=== PATIENT | female | born 1945 | race Caucasian/White ===

== ENCOUNTER 2016-04-22 09:47 | Emergency (ER) | payer MEDICARE, MEDICAID ==
[2016-04-22] MEDS ORDERED: Albuterol/Ipratropium NEB.SOL* Albuterol 2.5 MG/Ipratropium 0.5 MG 3 ML INH ONE (10:42)
[2016-04-22 11:25] LABS: Hematocrit 35 % (35-47); Hemoglobin 11.2 g/dl (12.0-16.0); Mean Corpuscular HGB Conc 32 g/dl (31-36); Mean Corpuscular Hemoglobin 31 pg (27-31); Mean Corpuscular Volume 95 fL (80-97); Mean Platelet Volume 10 um3 (7.4-10.4); Red Blood Count 3.69 10^6/ul (4.0-5.4); Red Cell Distribution Width 14 % (10.5-15); White Blood Count 9.8 10^3/ul (3.5-10.8)
[2016-04-22 11:43] LABS: BUN/Creatinine Ratio 12.1 (8-20); C Reactive Protein 3.88 mg/L (< 5.00); Calcium 9.8 mg/dL (8.6-10.3); EGFR African American 55.2 (>60); EGFR Non-African American 42.9 (>60); Globulin 3.6 g/dL (2-4); Potassium 4.1 mmol/L (3.5-5.0); Total Bilirubin 0.5 mg/dL (0.2-1.0); Total Protein 7.6 g/dL (6.4-8.9)
[2016-04-22 11:46] LABS: Troponin I 0.01 ng/mL (<0.04)
--- NOTE | 2016-04-22 12:39 | RAD ---
HISTORY: Shortness of breath COMPARISONS: November 15, 2015 VIEWS: 2: Frontal dual-energy and lateral views of the chest. FINDINGS: CARDIOMEDIASTINAL SILHOUETTE: The cardiomediastinal silhouette is normal. HARI: The hari are normal. PLEURA: The costophrenic angles are sharp. No pleural abnormalities are noted. LUNG PARENCHYMA: The lungs are clear. ABDOMEN: The upper abdomen is clear. There is no subphrenic gas. BONES AND SOFT TISSUES: No bone or soft tissue abnormalities are noted. OTHER: None. IMPRESSION: NO ACTIVE CARDIOPULMONARY DISEASE.
[2016-04-22] MEDS ORDERED: Azithromycin TAB* 250 MG PO ONE (12:47)
[2016-04-22] MEDS ORDERED: predniSONE TAB* 20 MG PO ONE (12:47)
--- NOTE | 2016-04-22 12:50 | ED ---
Kuldeep Hastings Anna, scribed for Rishabh Retana MD on 04/22/16 at 1021 . Shortness of Breath - HPI Summary HPI Summary: Patient is a 70 y/o female coming to [facility] presenting with acute on chronic SOB that began yesterday. She couldnt sleep because of the severity of the symptoms , which are worse at night. She reports feeling congestion and more difficulty inhaling than exhaling. Her symptoms are somewhat alleviated by sitting up. She normally uses one thick pillow to sleep and sleeps on her side. She additionally expresses some numbness in her feet. She denies coughing, leg edema , chest pain, urinary changes, changes in BM, vision changes, trouble swallowing. She has an inhaler and sleep apnea machine, which do not alleviate the symptoms. She has been taking Mucinex, which has not alleviated the symptoms. Her history is significant for chronic bronchitis, COPD, HTN, DM, GERD , HIV. - History of Current Complaint Chief Complaint: EDShortnessOfBreath Time Seen by Provider: 04/22/16 10:11 Hx Obtained From: Patient - Allergy/Home Medications Allergies/Adverse Reactions: Allergies Allergy/AdvReac Type Severity Reaction Status Date / Time No Known Allergies Allergy Verified 01/18/16 17:03 PMH/Surg Hx/FS Hx/Imm Hx Endocrine/Hematology History: Reports: Hx Diabetes, Other Endocrine/ Hematological Disorders - HIV POSITIVE Denies: Hx Thyroid Disease Cardiovascular History: Reports: Hx Hypercholesterolemia, Hx Hypertension, Other Cardiovascular Problems/Disorders - IDDM Denies: Hx Pacemaker/ICD Respiratory History: Reports: Hx Chronic Bronchitis, Hx Chronic Obstructive Pulmonary Disease (COPD) Denies: Hx Asthma GI History: Reports: Hx Gastroesophageal Reflux Disease Denies: Hx Ulcer History: Denies: Hx Renal Disease Sensory History: Reports: Hx Eye Prosthesis - Rt, Other Sensory Impairments - no contacts - wears eyeglasses Denies: Hx Hearing Aid Opthamlomology History: Reports: Hx Eye Prosthesis - Rt, Other Sensory Impairments - no contacts - wears eyeglasses Psychiatric History: Reports: Hx Substance Abuse Denies: Hx Panic Disorder - Cancer History Hx Chemotherapy: No Hx Radiation Therapy: No - Surgical History Surgery Procedure, Year, and Place: right eye surgery-[facility]-. right lower abdomen cyst removal Infectious Disease History: No Infectious Disease History: Reports: Hx Human Immunodeficiency Virus (HIV) Denies: Hx Hepatitis, Traveled Outside the [place] in Last 30 Days - Family History Known Family History: Positive: Cardiac Disease, Hypertension - Social History Alcohol Use: None Hx Substance Use: No Substance Use Type: Reports: None Substance Use Comment - Amount & Last Used: previous use, reported to ED no current use Hx Tobacco Use: Yes Smoking Status (MU): Former Smoker - Quit in the early . Have You Smoked in the Last Year: No Review of Systems Negative: Blurred Vision ENT: Other - Nasal congestion. Denies difficulty swallowing. Negative: Chest Pain Positive: Shortness Of Breath. Negative: Cough Positive: no symptoms reported Negative: Edema Positive: Numbness - bilateral pedal numbness All Other Systems Reviewed And Are Negative: Yes Physical Exam Triage Information Reviewed: Yes Vital Signs On Initial Exam: Initial Vitals BP 136/63 04/22/16 09:51 Vital Signs Reviewed: Yes Appearance: Positive: Well-Appearing, No Pain Distress Skin: Positive: Warm, Skin Color Reflects Adequate Perfusion, Dry Head/Face: Positive: Normal Head/Face Inspection Eyes: Positive: EOMI, GEOFF ENT: Positive: Other - Glass right eyeball Neck: Positive: Supple, Nontender Respiratory/Lung Sounds: Positive: Breath Sounds Present, Other - Poor air movement bilaterally Cardiovascular: Positive: RRR, Other - Brisk capillary refill Abdomen Description: Positive: Nontender, Soft Bowel Sounds: Positive: Present Musculoskeletal: Positive: Normal, Strength/ROM Intact Neurological: Positive: Normal, Sensory/Motor Intact, Alert, Oriented to Person Place, Time Psychiatric: Positive: Affect/Mood Appropriate Diagnostics - Vital Signs Vital Signs Temp Pulse Resp BP Pulse Ox 04/22/16 10:00 86 19 98 04/22/16 09:54 82 99 04/22/16 09:53 97.9 F 86 20 136/63 99 04/22/16 09:51 136/63 - Laboratory Lab Results: Lab Results 04/22/16 04/22/16 04/22/16 Range/Units 11:07 11:07 11:07 WBC 9.8 (3.5-10.8) 10^3/ul RBC 3.69 L (4.0-5.4) 10^6/ul Hgb 11.2 L (12.0-16.0) g/dl Hct 35 (35-47) % MCV 95 (80-97) fL MCH 31 (27-31) pg MCHC 32 (31-36) g/dl RDW 14 (10.5-15) % Plt Count 147 L (150-450) 10^3/ul MPV 10 (7.4-10.4) um3 Neut % (Auto) 66.7 (38-83) % Lymph % (Auto) 20.6 L (25-47) % [place] % (Auto) 9.6 H (1-9) % Eos % (Auto) 2.5 (0-6) % Baso % (Auto) 0.6 (0-2) % Absolute Neuts (auto) 6.5 (1.5-7.7) 10^3/ul Absolute Lymphs (auto) 2.0 (1.0-4.8) 10^3/ul Absolute Monos (auto) 0.9 H (0-0.8) 10^3/ul Absolute Eos (auto) 0.2 (0-0.6) 10^3/ul Absolute Basos (auto) 0.1 (0-0.2) 10^3/ul Absolute Nucleated RBC 0.01 10^3/ul Nucleated RBC % 0.1 INR (Anticoag Therapy) 0.93 (0.89-1.11) APTT 29.4 (26.0-36.3) seconds D-Dimer, Quantitative < 200 (Less Than 230) ng/mL Sodium 132 L (133-145) mmol/L Potassium 4.1 (3.5-5.0) mmol/L Chloride 97 L (101-111) mmol/L Carbon Dioxide 25 (22-32) mmol/L Anion Gap 10 (2-11) mmol/L BUN 15 (6-24) mg/dL Creatinine 1.24 H (0.51-0.95) mg/dL Est GFR ( Amer) 55.2 (>60) Est GFR (Non-Af Amer) 42.9 (>60) BUN/Creatinine Ratio 12.1 (8-20) Glucose 302 H (70-100) mg/dL Calcium 9.8 (8.6-10.3) mg/dL Total Bilirubin 0.50 (0.2-1.0) mg/dL AST 35 (13-39) U/L ALT 29 (7-52) U/L Alkaline Phosphatase 85 (34-104) U/L Total Creatine Kinase 96 (10-223) U/L CK-MB (CK-2) 3.8 (0.6-6.3) ng/mL Troponin I 0.01 (<0.04) ng/mL C-Reactive Protein 3.88 (< 5.00) mg/L Total Protein 7.6 (6.4-8.9) g/dL Albumin 4.0 (3.2-5.2) g/dL Globulin 3.6 (2-4) g/dL Albumin/Globulin Ratio 1.1 (1-3) Lipase 18 (11.0-82.0) U/L Result Diagrams: 04/22/16 11:07 04/22/16 11:07 Lab Statement: Any lab studies that have been ordered have been reviewed, and results considered in the medical decision making process. - Radiology CXR Xray Interpretation: No Acute Changes Radiology Interpretation Completed By: Radiologist Course/Dx - Course Assessment/Plan: WELL IN ED. DISCUSSED RESULTS WITH PATIENT. NO EVIDENCE OF NH, CHF, PE. WILL TREAT FOR COPD EXACERBATION. PATIENT NAD IN ED. DISCHARGE HOME STABLE. - Diagnoses Provider Diagnoses: Dyspnea, COPD (chronic obstructive pulmonary disease) Discharge - Discharge Plan Condition: Stable Disposition: HOME Prescriptions: Azithromycin TAB* [Zithromax TAB (Z-GERARD) 250 mg #6 tabs] 250 mg PO DAILY #4 tab predniSONE TAB* [Deltasone TAB*] 40 mg PO DAILY #8 tab Patient Education Materials: COPD (Chronic Obstructive Pulmonary Disease) (ED) , Dyspnea (ED) Referrals: Fan Parsons MD [Primary Care Provider] - Additional Instructions: FOLLOW UP WITH YOUR DOCTOR. RETURN TO THE EMERGENCY DEPARTMENT FOR ANY WORSENING OF YOUR CONDITION OR QUESTIONS OR CONCERNS. The documentation as recorded by the Kuldeep quinonez Anna accurately reflects the service I personally performed and the decisions made by , Rishabh Retana MD.
[2016-04-22 13:13] VITALS: BP 137/59
== END 2016-04-22 13:17 | disposition home or self-care (01) ==
LOC: ED 09:47
DX: R06.00 Dyspnea, unspecified (principal); J44.9 Chronic obstructive pulmonary disease, unspecified; R06.02 Shortness of breath; R20.0 Anesthesia of skin; Z87.891 Personal history of nicotine dependence
CPT/HCPCS: 36415; 71020; 80053; 82550; 82553; 83690; 84484; 85025; 85379; 85610; 85730; 86140; 94640; 94760; 99283; A9270-GY; J7512

== ENCOUNTER 2016-05-21 15:31 | Emergency (ER) | payer MEDICARE, MEDICAID ==
[2016-05-21 16:27] LABS: Urine Bilirubin Negative (Negative); Urine Glucose 3+(>=500 mg/dL) (Negative); Urine Nitrite Negative (Negative)
[2016-05-21] MEDS ORDERED: Insulin REGULAR(*) 1 UNITS UNIT SUBCUT ONE (17:11)
[2016-05-21 17:14] LABS: Hematocrit 34 % (35-47); Mean Corpuscular HGB Conc 32 g/dl (31-36); Mean Corpuscular Hemoglobin 30 pg (27-31); Mean Corpuscular Volume 94 fL (80-97); Mean Platelet Volume 10 um3 (7.4-10.4); Red Blood Count 3.64 10^6/ul (4.0-5.4); Red Cell Distribution Width 14 % (10.5-15); White Blood Count 7.9 10^3/ul (3.5-10.8)
[2016-05-21 17:28] LABS: Albumin 3.9 g/dL (3.2-5.2); BUN/Creatinine Ratio 18.5 (8-20); Calcium 9.6 mg/dL (8.6-10.3); EGFR Non-African American 32.7 (>60); Globulin 3.3 g/dL (2-4); Potassium 3.9 mmol/L (3.5-5.0); Total Bilirubin 0.3 mg/dL (0.2-1.0); Total Protein 7.2 g/dL (6.4-8.9)
[2016-05-21] MEDS ORDERED: NS 0.9% 1000 ML* 1,000 ML IV ONE (17:37)
[2016-05-21 19:00] VITALS: BP 140/66
--- NOTE | 2016-05-24 15:29 | ED ---
Rayray Hastings Adam, scribed for Reilly Koch MD on 05/21/16 at 1620 . HPI Diabetic - HPI Summary HPI Summary: Pt is a 70 year old female sent from her PCP with hyperglycemia. She states that she went to Dr. Parsons's office earlier today and they found her glucose level to be 520 so they sent her to the ED. She has DM and takes insulin 2x a day and she denies missing any doses. She also reports chronic back pain and a dry mouth. She denies N/V/D, CP, SOB, abdominal pain, myalgia, fever, and chills. She denies any neuropathy. In addition to DM, pt has a PMHx of HIV. - History Of Current Complaint Chief Complaint: EDHypertension Time Seen by Provider: 05/21/16 15:59 Hx Obtained From: Patient Onset/Duration: Gradual Onset, Lasting Hours, Still Present Timing: Constant Severity Initially: Moderate Severity Currently: Moderate Character: Alert Aggravating: Other - Unknown Alleviating: Nothing Related History: Insulin Requiring - 2x a day - Allergies/Home Medications Allergies/Adverse Reactions: Allergies Allergy/AdvReac Type Severity Reaction Status Date / Time No Known Allergies Allergy Verified 01/18/16 17:03 PMH/Surg Hx/FS Hx/Imm Hx Endocrine/Hematology History: Reports: Hx Diabetes, Other Endocrine/ Hematological Disorders - HIV POSITIVE Denies: Hx Thyroid Disease Cardiovascular History: Reports: Hx Hypercholesterolemia, Hx Hypertension, Other Cardiovascular Problems/Disorders - IDDM Denies: Hx Pacemaker/ICD Respiratory History: Reports: Hx Chronic Bronchitis, Hx Chronic Obstructive Pulmonary Disease (COPD) Denies: Hx Asthma GI History: Reports: Hx Gastroesophageal Reflux Disease Denies: Hx Ulcer History: Denies: Hx Renal Disease Sensory History: Reports: Hx Eye Prosthesis - Rt, Other Sensory Impairments - no contacts - wears eyeglasses Denies: Hx Hearing Aid Opthamlomology History: Reports: Hx Eye Prosthesis - Rt, Other Sensory Impairments - no contacts - wears eyeglasses Psychiatric History: Reports: Hx Substance Abuse Denies: Hx Panic Disorder - Cancer History Hx Chemotherapy: No Hx Radiation Therapy: No - Surgical History Surgery Procedure, Year, and Place: right eye surgery-[facility]-. right lower abdomen cyst removal Infectious Disease History: Reports: Hx Human Immunodeficiency Virus (HIV) Denies: Hx Hepatitis, Traveled Outside the [place] in Last 30 Days - Family History Known Family History: Positive: Cardiac Disease, Hypertension - Social History Occupation: Disabled Lives: With Family - Female friend Alcohol Use: None Hx Substance Use: No Substance Use Type: Reports: None Substance Use Comment - Amount & Last Used: previous use, reported to ED no current use Hx Tobacco Use: Yes Smoking Status (MU): Former Smoker Have You Smoked in the Last Year: No Review of Systems Negative: Fever, Chills Negative: Erythema Positive: Other - Dry mouth. Negative: Sore Throat Negative: Chest Pain Negative: Shortness Of Breath, Cough Negative: Abdominal Pain, Vomiting, Nausea Negative: dysuria, hematuria Positive: Other - Chronic back pain. Negative: Edema Negative: Rash All Other Systems Reviewed And Are Negative: Yes Physical Exam - Summary Physical Exam Summary: Constitutional: Well-developed, Well-nourished, Alert. (-) Distressed Skin: Warm, Dry HENT: Normocephalic; Atraumatic Eyes: Conjunctiva normal Neck: Musculoskeletal ROM normal neck. (-) JVD, (-) Stridor, (-) Tracheal deviation Cardio: Rhythm regular, rate normal, Heart sounds normal; Intact distal pulses; The pedal pulses are 2+ and symmetric. Radial pulses are 2+ and symmetric. (-) Murmur Pulmonary/Chest wall: Effort normal. (-) Respiratory distress, (-) Wheezes, (-) Rales Abd: Soft, (-) Tenderness, (-) Distension, (-) Guarding, (-) Rebound Musculoskeletal: (-) Edema. Patient refused to have her feet examined. Lymph: (-) Cervical adenopathy Neuro: Alert, Oriented x3 Psych: Mood and affect Normal Triage Information Reviewed: Yes Vital Signs On Initial Exam: Initial Vitals Temp Pulse Resp BP Pulse Ox 98.1 F 81 16 141/65 99 05/21/16 15:56 05/21/16 15:56 05/21/16 15:56 05/21/16 15:56 05/21/16 15:56 Vital Signs Reviewed: Yes - [place] Coma Scale Coma Scale Total: 15 Diagnostics - Vital Signs Vital Signs Temp Pulse Resp BP Pulse Ox 05/21/16 15:56 98.1 F 81 16 141/65 99 - Laboratory Result Diagrams: 05/21/16 17:05 05/21/16 17:05 Lab Statement: Any lab studies that have been ordered have been reviewed, and results considered in the medical decision making process. - Additional Comments Diagnostic Additional Comments: Lactic Acid - 2.4 Re-Evaluation - Re-Evaluation First Eval Re-Evaluation Time: 17:41 - Patient c/o itching and pain in her groin. Pelvic exam will be performed. Diabetic Course/Dx - Course Course Of Treatment: Pelvic Exam (performed with Sienna in room): Labia appear to be erythematous. No induration, no fluctuance, no discharge or vesicles. - Diagnoses Provider Diagnoses: Labial cellulitis, Tinea cruris Discharge - Discharge Plan Condition: Stable Disposition: HOME Prescriptions: Benzocaine-Resorcinol Vaginal [Vagisil Maximum Strength] 1 inch VA TID #1 tube Cephalexin CAP* [Keflex CAP*] 500 mg PO QID #40 cap Patient Education Materials: Cellulitis (ED) Referrals: Fan Parsons MD [Primary Care Provider] - Additional Instructions: Follow up with Dr. Parsons in 2 days. We were unable to prescribe Biotin and menthol nasal spray today due to unavailability. The documentation as recorded by the Rayray quinonez Adam accurately reflects the service I personally performed and the decisions made by me, Reilly Koch MD.
== END 2016-05-21 18:59 | disposition home or self-care (01) ==
LOC: ED 15:31
DX: L03.90 Cellulitis, unspecified (principal); B35.6 Tinea cruris; M54.9 Dorsalgia, unspecified; R68.2 Dry mouth, unspecified
CPT/HCPCS: 36415; 80053; 81003; 83605; 85025; 99282

== ENCOUNTER → 2016-09-13 13:42 | Emergency (ER) | payer MEDICARE, MEDICAID ==
[2016-09-13 13:49] VITALS: BP 146/60
--- NOTE | 2016-09-13 16:56 | ED ---
Darell Hastings Alok, scribed for Gopi Russell MD on 09/13/16 at 1544 . Breast Complaint - HPI Summary HPI Summary: 70M presents to the ED sent here from Dr. Parsons's office for a chest XRAY. Pt states she does not know what the XRAY is for only that it was requested by Dr. Parsons who she saw 2 days ago and had mammogram done. Pt denies cough, fever, or SOB. - History of Current Complaint Hx Obtained From: Patient Onset/Duration: Atraumatic Breast Associated Signs/Symptoms: Negative - Additional Pertinent History Primary Care Physician: [facility] - Allergy/Home Medications Allergies/Adverse Reactions: Allergies Allergy/AdvReac Type Severity Reaction Status Date / Time No Known Allergies Allergy Verified 01/18/16 17:03 PMH/Surg Hx/FS Hx/Imm Hx Endocrine/Hematology History: Reports: Hx Diabetes, Other Endocrine/ Hematological Disorders - HIV POSITIVE Denies: Hx Thyroid Disease Cardiovascular History: Reports: Hx Hypercholesterolemia, Hx Hypertension, Other Cardiovascular Problems/Disorders - IDDM Denies: Hx Pacemaker/ICD Respiratory History: Reports: Hx Chronic Bronchitis, Hx Chronic Obstructive Pulmonary Disease (COPD) Denies: Hx Asthma GI History: Reports: Hx Gastroesophageal Reflux Disease Denies: Hx Ulcer History: Denies: Hx Renal Disease Sensory History: Reports: Hx Eye Prosthesis - Rt, Other Sensory Impairments - no contacts - wears eyeglasses Denies: Hx Hearing Aid Opthamlomology History: Reports: Hx Eye Prosthesis - Rt, Other Sensory Impairments - no contacts - wears eyeglasses Psychiatric History: Reports: Hx Substance Abuse Denies: Hx Panic Disorder - Cancer History Hx Chemotherapy: No Hx Radiation Therapy: No - Surgical History Surgery Procedure, Year, and Place: right eye surgery-[facility]-. right lower abdomen cyst removal Infectious Disease History: No Infectious Disease History: Reports: Hx Human Immunodeficiency Virus (HIV) Denies: Hx Hepatitis, Traveled Outside the [place] in Last 30 Days - Family History Known Family History: Positive: Cardiac Disease, Hypertension - Social History Occupation: Retired Lives: With Family Alcohol Use: None Hx Substance Use: No Substance Use Type: Reports: None Substance Use Comment - Amount & Last Used: previous use, reported to ED no current use Hx Tobacco Use: Yes Smoking Status (MU): Former Smoker Have You Smoked in the Last Year: No Review of Systems Negative: Fever Negative: Shortness Of Breath, Cough All Other Systems Reviewed And Are Negative: Yes Physical Exam Triage Information Reviewed: Yes Vital Signs On Initial Exam: Initial Vitals Temp Pulse Resp BP Pulse Ox 98.1 F 74 18 146/60 98 09/13/16 13:46 09/13/16 13:46 09/13/16 13:46 09/13/16 13:46 09/13/16 13:46 Vital Signs Reviewed: Yes Appearance: Positive: Well-Appearing, No Pain Distress Skin: Positive: Warm, Skin Color Reflects Adequate Perfusion, Dry Head/Face: Positive: Normal Head/Face Inspection Eyes: Positive: Normal ENT: Positive: Normal ENT inspection Neck: Positive: Supple, Nontender Respiratory/Lung Sounds: Positive: Clear to Auscultation, Breath Sounds Present Cardiovascular: Positive: RRR Abdomen Description: Positive: Nontender, Soft Bowel Sounds: Positive: Present Musculoskeletal: Positive: Normal Neurological: Positive: Normal Psychiatric: Positive: Normal, Affect/Mood Appropriate Diagnostics - Vital Signs Vital Signs Temp Pulse Resp BP Pulse Ox 09/13/16 13:46 98.1 F 74 18 146/60 98 - Laboratory Lab Statement: Any lab studies that have been ordered have been reviewed, and results considered in the medical decision making process. Breast Pain Course/Dx - Diagnoses Provider Diagnoses: Well adult exam Discharge - Discharge Plan Condition: Stable Disposition: HOME Referrals: Fan Parsons MD [Primary Care Provider] - Additional Instructions: Please follow up with your primary care provider The documentation as recorded by the Darell quinonez Alok accurately reflects the service I personally performed and the decisions made by , Gopi Russell MD.
--- NOTE | 2016-09-13 17:02 | RAD ---
Indication: Breast pain. 2 views of the chest demonstrate no mediastinal shift. Heart is of normal size and configuration. Lung [place] are clear. When compared to previous exam of April 22, 2016 no significant change is noted. IMPRESSION: No active cardiopulmonary disease is noted.
--- NOTE | 2016-09-13 17:05 | ED ---
Darell Hastings Alok, scribed for Gopi Russell MD on 09/13/16 at 1704 . Progress - EKG/XRAY/CT XRAY: chest Xray Comments: IMPRESSION: No active cardiopulmonary disease is noted. Course/Dx - Diagnoses Provider Diagnoses: Well adult exam The documentation as recorded by the gomezibDarell walters Alok accurately reflects the service I personally performed and the decisions made by me, Gopi Russell MD.
== END | disposition home or self-care (01) ==
LOC: ED 13:42
DX: N64.4 Mastodynia (principal); Z00.8 Encounter for other general examination
CPT/HCPCS: 71020; 99281

== ENCOUNTER 2016-10-07 18:26 | Emergency (ER) | payer MEDICARE, MEDICAID ==
[2016-10-07] MEDS ORDERED: NS 0.9% 1000 ML* 1,000 ML IV ONE (19:27)
[2016-10-07 19:58] LABS: Hematocrit 33 % (35-47); Hemoglobin 10.7 g/dl (12.0-16.0); Mean Corpuscular HGB Conc 32 g/dl (31-36); Mean Corpuscular Hemoglobin 31 pg (27-31); Mean Corpuscular Volume 95 fL (80-97); Mean Platelet Volume 10 um3 (7.4-10.4); Red Blood Count 3.48 10^6/ul (4.0-5.4); Red Cell Distribution Width 16 % (10.5-15); White Blood Count 9.2 10^3/ul (3.5-10.8)
[2016-10-07 20:12] LABS: Albumin 3.9 g/dL (3.2-5.2); BUN/Creatinine Ratio 14.5 (8-20); C Reactive Protein 7.61 mg/L (< 5.00); Calcium 9.6 mg/dL (8.6-10.3); EGFR African American 24.7 (>60); EGFR Non-African American 19.2 (>60); Magnesium 2.1 mg/dL (1.9-2.7); Potassium 4.5 mmol/L (3.5-5.0); Total Bilirubin 0.6 mg/dL (0.2-1.0); Total Protein 6.9 g/dL (6.4-8.9)
[2016-10-07 20:13] LABS: Troponin I 0.03 ng/mL (<0.04)
--- NOTE | 2016-10-07 20:50 | ED ---
Maria C Hastings SooYoung, scribed for Chidi Weinstein MD on 10/07/16 at 1938 . HPI Diabetic - HPI Summary HPI Summary: A 70 y/o F JANETH presents to ED with c/o high blood sugar and a fall VALUATION MANAGER. Pt uses a cane/walker at home, was at home when she fell. She did not take her insulin today. Associated sx: thirst, pain at buttocks. - History Of Current Complaint Chief Complaint: EDDiabeticProb Time Seen by Provider: 10/07/16 19:24 Hx Obtained From: Patient Onset/Duration: Still Present Timing: Constant Severity Initially: Moderate Severity Currently: Moderate - Allergies/Home Medications Allergies/Adverse Reactions: Allergies Allergy/AdvReac Type Severity Reaction Status Date / Time No Known Allergies Allergy Verified 01/18/16 17:03 PMH/Surg Hx/FS Hx/Imm Hx Previously Healthy: No Endocrine/Hematology History: Reports: Hx Diabetes, Other Endocrine/ Hematological Disorders - HIV POSITIVE Denies: Hx Thyroid Disease Cardiovascular History: Reports: Hx Hypercholesterolemia, Hx Hypertension, Other Cardiovascular Problems/Disorders - IDDM Denies: Hx Pacemaker/ICD Respiratory History: Reports: Hx Chronic Bronchitis, Hx Chronic Obstructive Pulmonary Disease (COPD) Denies: Hx Asthma GI History: Reports: Hx Gastroesophageal Reflux Disease Denies: Hx Ulcer History: Denies: Hx Renal Disease Sensory History: Reports: Hx Eye Prosthesis - Rt, Other Sensory Impairments - no contacts - wears eyeglasses Denies: Hx Hearing Aid Opthamlomology History: Reports: Hx Eye Prosthesis - Rt, Other Sensory Impairments - no contacts - wears eyeglasses Psychiatric History: Reports: Hx Substance Abuse Denies: Hx Panic Disorder - Cancer History Hx Chemotherapy: No Hx Radiation Therapy: No - Surgical History Surgery Procedure, Year, and Place: right eye surgery-[facility]-. right lower abdomen cyst removal Infectious Disease History: Yes Infectious Disease History: Reports: Hx Human Immunodeficiency Virus (HIV) Denies: Hx Hepatitis, Traveled Outside the [place] in Last 30 Days - Family History Known Family History: Positive: Cardiac Disease, Hypertension - Social History Occupation: Retired Lives: Alone Alcohol Use: None Hx Substance Use: No Substance Use Type: Reports: None Substance Use Comment - Amount & Last Used: previous use, reported to ED no current use Hx Tobacco Use: Yes Smoking Status (MU): Former Smoker Have You Smoked in the Last Year: No Review of Systems Positive: Other - pos: thirst. Negative: Fever Positive: Myalgia All Other Systems Reviewed And Are Negative: Yes Physical Exam Triage Information Reviewed: Yes Vital Signs On Initial Exam: Initial Vitals Temp Pulse Resp BP Pulse Ox 98.2 F 98 16 123/47 97 10/07/16 18:39 10/07/16 18:39 10/07/16 18:39 10/07/16 18:39 10/07/16 18:39 Vital Signs Reviewed: Yes Appearance: Positive: No Pain Distress, Obese - disheveled Skin: Positive: Warm Head/Face: Positive: Normal Head/Face Inspection Eyes: Positive: GEOFF ENT: Positive: Hearing grossly normal Neck: Positive: Supple Respiratory/Lung Sounds: Positive: Clear to Auscultation, Breath Sounds Present Cardiovascular: Positive: RRR Abdomen Description: Positive: Nontender, Soft Bowel Sounds: Positive: Present Musculoskeletal: Positive: Strength/ROM Intact Neurological: Positive: Alert, Oriented to Person Place, Time - [place] Coma Scale Coma Scale Total: 15 Diagnostics - Vital Signs Vital Signs Temp Pulse Resp BP Pulse Ox 10/07/16 18:39 98.2 F 98 16 123/47 97 - Laboratory Lab Results: Lab Results 10/07/16 10/07/16 10/07/16 Range/Units 19:50 19:50 19:50 WBC 9.2 (3.5-10.8) 10^3/ul RBC 3.48 L (4.0-5.4) 10^6/ul Hgb 10.7 L (12.0-16.0) g/dl Hct 33 L (35-47) % MCV 95 (80-97) fL MCH 31 (27-31) pg MCHC 32 (31-36) g/dl RDW 16 H (10.5-15) % Plt Count 165 (150-450) 10^3/ul MPV 10 (7.4-10.4) um3 Neut % (Auto) 61.8 (38-83) % Lymph % (Auto) 27.0 (25-47) % [place] % (Auto) 8.4 (1-9) % Eos % (Auto) 1.8 (0-6) % Baso % (Auto) 1.0 (0-2) % Absolute Neuts (auto) 5.7 (1.5-7.7) 10^3/ul Absolute Lymphs (auto) 2.5 (1.0-4.8) 10^3/ul Absolute Monos (auto) 0.8 (0-0.8) 10^3/ul Absolute Eos (auto) 0.2 (0-0.6) 10^3/ul Absolute Basos (auto) 0.1 (0-0.2) 10^3/ul Absolute Nucleated RBC 0.01 10^3/ul Nucleated RBC % 0.1 Sodium 127 L (133-145) mmol/L Potassium 4.5 (3.5-5.0) mmol/L Chloride 94 L (101-111) mmol/L Carbon Dioxide 22 (22-32) mmol/L Anion Gap 11 (2-11) mmol/L BUN 36 H (6-24) mg/dL Creatinine 2.49 H (0.51-0.95) mg/dL Est GFR ( Amer) 24.7 (>60) Est GFR (Non-Af Amer) 19.2 (>60) BUN/Creatinine Ratio 14.5 (8-20) Glucose 458 H (70-100) mg/dL Lactic Acid 3.6 H* (0.5-2.0) mmol/L Calcium 9.6 (8.6-10.3) mg/dL Magnesium 2.1 (1.9-2.7) mg/dL Total Bilirubin 0.60 (0.2-1.0) mg/dL AST 35 (13-39) U/L ALT 21 (7-52) U/L Alkaline Phosphatase 82 (34-104) U/L Total Creatine Kinase 174 (10-223) U/L Troponin I 0.03 (<0.04) ng/mL C-Reactive Protein 7.61 H (< 5.00) mg/L Total Protein 6.9 (6.4-8.9) g/dL Albumin 3.9 (3.2-5.2) g/dL Globulin 3.0 (2-4) g/dL Albumin/Globulin Ratio 1.3 (1-3) Result Diagrams: 10/07/16 19:50 10/07/16 19:50 Lab Statement: Any lab studies that have been ordered have been reviewed, and results considered in the medical decision making process. Re-Evaluation - Re-Evaluation First Eval Change: Improved Diabetic Course/Dx - Course Course Of Treatment: Pt is a 70 y/o F presenting with high blood sugar and a fall VALUATION MANAGER. Pt uses a cane/walker at home, was at home when she fell. She did not take her insulin today. Associated sx: thirst, pain at buttocks. Pt given fluids, insulin, levaquin in ED. Lactic acid is 3.6; CRP is 7.61; glucose is 458. POC glucose is 364. Blood gas results show pH, pO2, HCO3, O2 sat, and base excess are all low. UA results show 1+ blood, 3+ leukocyte esterase, 3+ WBCs, 3 + glucose, squamous epithelia present. Will D/C pt home with Cipro for UTI, and to f/u with PCP. - Diagnoses Provider Diagnoses: UTI (urinary tract infection), Uncontrolled diabetes mellitus Discharge - Discharge Plan Condition: Improved Disposition: HOME Prescriptions: Ciprofloxacin TAB* [Cipro 250 MG Tab*] 250 mg PO BID #14 tab Patient Education Materials: Ciprofloxacin (By mouth), Urinary Tract Infection in Women (ED), Diabetes in the Older Adult (ED) Referrals: Fan Parsons MD [Primary Care Provider] - Additional Instructions: Take medications as prescribed. Please return to the ED if you experience new or worsening symptoms. The documentation as recorded by the Maria C quinonez SooYoung accurately reflects the service I personally performed and the decisions made by me, Chidi Weinstein MD.
[2016-10-07] MEDS ORDERED: Insulin REGULAR(*) 1 UNITS UNIT SUBCUT ONE (21:13)
[2016-10-07 21:43] LABS: Venous Bicarbonate HCO3 21.8 mmol/L (24-28)
[2016-10-07 21:48] LABS: Urine Bacteria Absent (Absent); Urine Bilirubin Negative (Negative); Urine Glucose 3+(>=500 mg/dL) (Negative); Urine Nitrite Negative (Negative)
[2016-10-07] MEDS ORDERED: Levofloxacin 250 MG IVPREMX(*) 250 MG/50 ML BAG IVPB ONE (21:55)
[2016-10-08 00:09] VITALS: BP 155/69
== END 2016-10-08 00:09 | disposition home or self-care (01) ==
LOC: ED 18:26
DX: N39.0 Urinary tract infection, site not specified (principal)
CPT/HCPCS: 36415; 80053; 81003; 81015; 82550; 82803; 83605; 83735; 84484; 85025; 86140; 87086; 99283; J1956

== ENCOUNTER 2017-04-12 06:24 | Emergency (ER) | payer MEDICARE, MEDICAID ==
[2017-04-12 07:59] LABS: ABS Basophils 0 10^3/ul (0-0.2); ABS Eosinophils 0.2 10^3/ul (0-0.6); ABS Lymphocytes 2.4 10^3/ul (1.0-4.8); ABS Monocytes 0.7 10^3/ul (0-0.8); ABS Neutrophils 4.3 10^3/ul (1.5-7.7); ABS Nucleated RBC 0 10^3/ul; Eosinophil % 2.2 % (0-6); Hematocrit 29 % (35-47); Hemoglobin 9.3 g/dl (12.0-16.0); Lymphocyte % 31.7 % (25-47); Mean Corpuscular HGB Conc 33 g/dl (31-36); Mean Corpuscular Hemoglobin 28 pg (27-31); Mean Corpuscular Volume 87 fL (80-97); Mean Platelet Volume 10 um3 (7.4-10.4); Nucleated Red Blood Cells % 0; Platelet Count 160 10^3/ul (150-450); Red Blood Count 3.29 10^6/ul (4.0-5.4); Red Cell Distribution Width 15 % (10.5-15); White Blood Count 7.6 10^3/ul (3.5-10.8)
[2017-04-12 08:14] LABS: Urine Appearance Clear; Urine Blood Negative (Negative); Urine Color Straw; Urine Ketones Negative (Negative); Urine Protein Negative (Negative); Urine Specific Gravity 1.016 (1.010-1.030); Urine Urobilinogen Negative (Negative)
[2017-04-12 08:15] LABS: EGFR Non-African American 25.2 (>60)
[2017-04-12] MEDS ORDERED: Insulin REGULAR(*) 1 UNITS UNIT IV PUSH ONE ×3 (08:23→12:18)
--- NOTE | 2017-04-12 08:34 | RAD ---
INDICATION: Cough for several days. Cardiac disease and chronic obstructive pulmonary disease. COMPARISON: September 13, 2016 TECHNIQUE: Dual energy PA and routine lateral views of the chest were obtained. REPORT: Elevated lung volumes. No focal pulmonary lesion, compelling alveolar consolidation, pleural effusion, pneumothorax. The heart, pulmonary vasculature, and mediastinal contours are unremarkable. Negative for free air beneath the diaphragm. Unremarkable soft tissue contours and osseous structures for age. IMPRESSION: Elevated lung volumes corresponding with history of chronic obstructive pulmonary disease. No acute cardiopulmonary process evident.
[2017-04-12] MEDS: NS 0.9% 1000 ML* 2,000 ML IV ONE (09:27)
[2017-04-12 13:37] VITALS: BP 110/78
--- NOTE | 2017-04-13 10:37 | ED ---
Filomena Hastings Edward, scribed for Derek Thomason MD on 04/12/17 at 0712 . GI/ HPI - HPI Summary HPI Summary: 71 y/o female presents to the ED. Pt states she was recommended to come to the ED for "fluids for her kidneys". Pt is otherwise asymptomatic in the ED. PMHx kidney failure, HLD, HTN, blood sugar. - History of Current Complaint Chief Complaint: EDGeneral Stated Complaint: FLANK PAIN Hx Obtained From: Patient Pain Intensity: 0 Associated Signs and Symptoms: Positive: Negative - Additional Pertinent History Primary Care Physician: TATI - Allergy/Home Medications Allergies/Adverse Reactions: Allergies Allergy/AdvReac Type Severity Reaction Status Date / Time No Known Allergies Allergy Verified 04/12/17 06:31 PMH/Surg Hx/FS Hx/Imm Hx Previously Healthy: No Endocrine/Hematology History: Reports: Hx Diabetes, Other Endocrine/ Hematological Disorders - HIV POSITIVE Denies: Hx Thyroid Disease Cardiovascular History: Reports: Hx Hypercholesterolemia, Hx Hypertension, Other Cardiovascular Problems/Disorders - hyperlipidemia Denies: Hx Pacemaker/ICD Respiratory History: Reports: Hx Chronic Bronchitis, Hx Chronic Obstructive Pulmonary Disease (COPD) Denies: Hx Asthma GI History: Reports: Hx Gastroesophageal Reflux Disease Denies: Hx Ulcer History: Reports: Hx Kidney Infection, Hx Kidney Stones, Other Problems/ Disorders - hemorrhoids, herpes simplex Denies: Hx Renal Disease Musculoskeletal History: Reports: Hx Arthritis Sensory History: Reports: Hx Cataracts - left eye, Hx Contacts or Glasses - readers, Hx Eye Prosthesis - Rt, Other Sensory Impairments - no contacts - wears eyeglasses Denies: Hx Hearing Aid Opthamlomology History: Reports: Hx Cataracts - left eye, Hx Contacts or Glasses - readers, Hx Eye Prosthesis - Rt, Other Sensory Impairments - no contacts - wears eyeglasses Neurological History: Reports: Hx Nerve Disease - neuropathy, Other Neuro Impairments/Disorders - schizophrenia Psychiatric History: Reports: Hx Depression, Hx Substance Abuse Denies: Hx Panic Disorder - Cancer History Hx Chemotherapy: No Hx Radiation Therapy: No - Surgical History Surgery Procedure, Year, and Place: right eye prosthetic - d/t trauma. right lower abdomen cyst removal Hx Anesthesia Reactions: No - Immunization History Date of Tetanus Vaccine: utd Date of Influenza Vaccine: 03/2017 Infectious Disease History: No Infectious Disease History: Reports: Hx Hepatitis - chronic HEP C, Hx Human Immunodeficiency Virus (HIV) Denies: Traveled Outside the [place] in Last 30 Days - Family History Known Family History: Positive: Unknown, Cardiac Disease, Hypertension - Social History Alcohol Use: None Hx Substance Use: No Substance Use Type: Reports: None Substance Use Comment - Amount & Last Used: reports over 20 yrs ago IV drug user Hx Tobacco Use: Yes Smoking Status (MU): Former Smoker Amount Used/How Often: 2 ppd for 20 yrs Have You Smoked in the Last Year: No Review of Systems Constitutional: Negative Eyes: Negative ENT: Negative Cardiovascular: Negative Respiratory: Negative Gastrointestinal: Negative Genitourinary: Negative Musculoskeletal: Negative Skin: Negative Neurological: Negative Psychological: Normal All Other Systems Reviewed And Are Negative: Yes Physical Exam - Summary Physical Exam Summary: VITAL SIGNS: Reviewed. GENERAL: Patient is an angry, obese female who is lying comfortable in the stretcher. Patient is not in any acute respiratory distress. HEAD AND FACE: No signs of trauma. No ecchymosis, hematomas or skull depressions. No sinus tenderness. EYES: PERRLA, EOMI x 2, No injected conjunctiva, no nystagmus. EARS: Hearing grossly intact. Ear canals and tympanic membranes are within normal limits. MOUTH: Oral mucosa dry. NECK: Supple, trachea is midline, no adenopathy, no JVD, no carotid bruit, no c- spine tenderness, neck with full ROM. CHEST: Symmetric, no tenderness at palpation LUNGS: Clear to auscultation bilaterally. No wheezing or crackles. CVS: Regular rate and rhythm, S1 and S2 present, no murmurs or gallops appreciated. ABDOMEN: Soft, non-tender. No signs of distention. No rebound no guarding, and no masses palpated. Bowel sounds are normal. EXTREMITIES: FROM in all major joints, no edema, no cyanosis or clubbing. NEURO: Alert and oriented x 3. No acute neurological deficits. Speech is normal and follows commands. SKIN: Dry and warm Triage Information Reviewed: Yes Vital Signs On Initial Exam: Initial Vitals Temp Pulse Resp BP Pulse Ox 97.9 F 96 15 125/57 97 04/12/17 06:30 04/12/17 06:30 04/12/17 06:30 04/12/17 06:30 04/12/17 06:30 Vital Signs Reviewed: Yes Diagnostics - Vital Signs Vital Signs Temp Pulse Resp BP Pulse Ox 04/12/17 06:30 97.9 F 96 15 125/57 97 - Laboratory Result Diagrams: 04/12/17 07:50 04/12/17 07:50 Lab Statement: Any lab studies that have been ordered have been reviewed, and results considered in the medical decision making process. - Radiology CXR Xray Interpretation: No Acute Changes - Elevated lung volumes corresponding with history of chronic obstructive pulmonary disease. No acute cardiopulmonary process evident. Radiology Interpretation Completed By: Radiologist - ED PHYSICIAN REVIEWS AND AGREES GIGU Course/Dx - Course Assessment/Plan: 71 y/o female presents to the ED. Pt states she was recommended to come to the ED for "fluids for her kidneys". Pt is otherwise asymptomatic in the ED. PMHx kidney failure, HLD, HTN, blood sugar. CXR SHOWS Elevated lung volumes corresponding with history of chronic obstructive pulmonary disease. No acute cardiopulmonary process evident. Test results without significant abnormalities except chronic anemia, chronic renal failure and hyperglycemia. UA - UTI. Pt given iv fluids, and insulin. After this, finger stick 269. Pt requests to go home. She will increase water intake and take meds as indicated. Pt is hemodynamically stable, A&Ox3. She reported sugar 269 is lowest in many years. - Diagnoses Differential Diagnoses - Female: Urinary Tract Infection - URI, Cough Provider Diagnoses: Hyperglycemia, Renal insufficiency, Acute on chronic renal failure Discharge - Discharge Plan Condition: Stable Disposition: HOME Patient Education Materials: Diabetic Hyperglycemia (ED) Referrals: Fan Parsons MD [Primary Care Provider] - 4 Days (PLEASE F/U IN 3-5 DAYS) Additional Instructions: PLEASE RETURN TO THE ED FOR THE RETURN OF OR WORSENING OF SYMPTOMS The documentation as recorded by the Filomena quinonez Edward accurately reflects the service I personally performed and the decisions made by , Derek Thomason MD.
== END 2017-04-12 13:36 | disposition home or self-care (01) ==
LOC: ED 06:24
DX: E11.65 Type 2 diabetes mellitus with hyperglycemia (principal); N19 Unspecified kidney failure; N28.9 Disorder of kidney and ureter, unspecified; Z86.79 Personal history of other diseases of the circulatory system; Z87.891 Personal history of nicotine dependence
CPT/HCPCS: 36415; 71046; 80053; 81003; 83690; 85025; 86140; 96374; 96375; 99285

== ENCOUNTER 2017-04-27 13:32 | Emergency (ER) | payer MEDICARE, MEDICAID ==
[2017-04-27 15:01] LABS: Urine Appearance Clear; Urine Blood Negative (Negative); Urine Color Yellow; Urine Ketones Negative (Negative); Urine Protein 1+(30 mg/dL) (Negative); Urine Specific Gravity 1.016 (1.010-1.030); Urine Urobilinogen Negative (Negative)
--- NOTE | 2017-04-27 15:13 | ED ---
HPI Diabetic - HPI Summary HPI Summary: Patient here with legs feeling weak yesterday and this morning. She also reports mild nausea yesterday without vomiting or diarrhea. She is here today for concern of possible UTI as she's had these symptoms in the past when she gets kidney infection. Denies fevers, chills, chest pain, abdominal pain, new flank pain, dysuria, urinary frequency, urinary urgency. She also reports her glucose reading this morning was "HI" (this typically correlates >400). She administered insulin after and her point of care glucose is now 157 here in ED. She reports she feels stronger since this correction. Has been able to ambulate to the bathroom back and forth without weakness or difficulty. Denies numbness, tingling, weakness or pain in her lower extremities since here. No headache, no fatigue, no visual change. She is requesting that if her urine is normal she may go home. Would like Medicaid cab. - History Of Current Complaint Chief Complaint: EDUrogenitalProblems Time Seen by Provider: 04/27/17 14:30 Hx Obtained From: Patient - Allergies/Home Medications Allergies/Adverse Reactions: Allergies Allergy/AdvReac Type Severity Reaction Status Date / Time No Known Allergies Allergy Verified 04/12/17 06:31 PMH/Surg Hx/FS Hx/Imm Hx Previously Healthy: Yes Endocrine/Hematology History: Reports: Hx Diabetes - insulin dependent diabetic , Other Endocrine/Hematological Disorders - HIV POSITIVE Denies: Hx Thyroid Disease Cardiovascular History: Reports: Hx Hypercholesterolemia, Hx Hypertension, Other Cardiovascular Problems/Disorders - hyperlipidemia Denies: Hx Pacemaker/ICD Respiratory History: Reports: Hx Chronic Bronchitis, Hx Chronic Obstructive Pulmonary Disease (COPD) Denies: Hx Asthma GI History: Reports: Hx Gastroesophageal Reflux Disease Denies: Hx Ulcer History: Reports: Hx Kidney Infection, Hx Kidney Stones, Other Problems/ Disorders - hemorrhoids, herpes simplex Denies: Hx Renal Disease Musculoskeletal History: Reports: Hx Arthritis Sensory History: Reports: Hx Cataracts - left eye, Hx Contacts or Glasses - readers, Hx Eye Prosthesis - Rt, Other Sensory Impairments - no contacts - wears eyeglasses Denies: Hx Hearing Aid Opthamlomology History: Reports: Hx Cataracts - left eye, Hx Contacts or Glasses - readers, Hx Eye Prosthesis - Rt, Other Sensory Impairments - no contacts - wears eyeglasses Neurological History: Reports: Hx Nerve Disease - neuropathy, Other Neuro Impairments/Disorders - schizophrenia Psychiatric History: Reports: Hx Depression, Hx Substance Abuse Denies: Hx Panic Disorder - Cancer History Hx Chemotherapy: No Hx Radiation Therapy: No - Surgical History Surgery Procedure, Year, and Place: right eye prosthetic - d/t trauma. right lower abdomen cyst removal Hx Anesthesia Reactions: No - Immunization History Date of Tetanus Vaccine: utd Date of Influenza Vaccine: 03/2017 Immunizations Up to Date: Yes Infectious Disease History: No Infectious Disease History: Reports: Hx Hepatitis - chronic HEP C, Hx Human Immunodeficiency Virus (HIV) Denies: Traveled Outside the [place] in Last 30 Days - Family History Known Family History: Positive: Cardiac Disease, Hypertension - Social History Occupation: Disabled Alcohol Use: None Hx Substance Use: No Substance Use Type: Reports: None Substance Use Comment - Amount & Last Used: reports over 20 yrs ago IV drug user Hx Tobacco Use: Yes Smoking Status (MU): Former Smoker Amount Used/How Often: 2 ppd for 20 yrs Have You Smoked in the Last Year: No Review of Systems Constitutional: Negative Negative: Fever, Chills, Fatigue Eyes: Negative Negative: Blurred Vision, Diplopia ENT: Negative Negative: Sore Throat, Ear Ache, Nasal Discharge Cardiovascular: Negative Negative: Palpitations, Chest Pain Respiratory: Negative Negative: Shortness Of Breath, Cough Gastrointestinal: Negative Negative: Abdominal Pain, Vomiting, Diarrhea, Nausea Positive: no symptoms reported Musculoskeletal: Negative Skin: Negative Positive: Weakness - as reported in HPI Psychological: Normal All Other Systems Reviewed And Are Negative: Yes Physical Exam Triage Information Reviewed: Yes Vital Signs On Initial Exam: Initial Vitals Temp Pulse Resp BP Pulse Ox 99.2 F 86 18 153/66 100 04/27/17 13:44 04/27/17 13:44 04/27/17 13:44 04/27/17 13:44 04/27/17 13:44 Vital Signs Reviewed: Yes Appearance: Positive: Well-Appearing, No Pain Distress, Obese Skin: Positive: Warm, Skin Color Reflects Adequate Perfusion, Dry - no erythema , no ecchymosis over LE's Head/Face: Positive: Normal Head/Face Inspection Eyes: Positive: Normal, EOMI, Conjunctiva Clear ENT: Positive: Normal ENT inspection, Hearing grossly normal, Pharynx normal - MUCOSA MOIST. Negative: Nasal congestion, Nasal drainage Neck: Positive: Supple Respiratory/Lung Sounds: Positive: Clear to Auscultation, Breath Sounds Present Cardiovascular: Positive: Normal, RRR, Pulses are Symmetrical in both Upper and Lower Extremities. Negative: Murmur, Rub, Leg Edema Left, Leg Edema Right - (- ) Love's sign Abdomen Description: Positive: Nontender, No Organomegaly, Soft Bowel Sounds: Positive: Present Musculoskeletal: Positive: Normal, Strength/ROM Intact - pt witnessed going back and forth to bathroom well - steady ambulation w/o weakness, hesitation or fatigue Neurological: Positive: Normal, Sensory/Motor Intact - LE's FROM 07/04 strength and sensation intact, Alert, Oriented to Person Place, Time, CN Intact II-III, Facial Symmetry, Speech Normal Psychiatric: Positive: Other - blunted affect; pt speaks loudly and in a demanding fashion at times - cooperative Diagnostics - Vital Signs Vital Signs Temp Pulse Resp BP Pulse Ox 04/27/17 13:50 99.2 F 86 19 153/66 100 04/27/17 13:44 99.2 F 86 18 153/66 100 - Laboratory Lab Results: Lab Results 04/27/17 04/27/17 Range/Units 14:00 14:34 POC Glucose (mg/dL) 157 H (70-100) mg/dL Urine Color Yellow Urine Appearance Clear Urine pH 5.0 (5-9) Ur Specific [place] 1.016 (1.010-1.030) Urine Protein 1+(30 mg/dl) H (Negative) Urine Ketones Negative (Negative) Urine Blood Negative (Negative) Urine Nitrate Negative (Negative) Urine Bilirubin Negative (Negative) Urine Urobilinogen Negative (Negative) Ur Leukocyte Esterase Negative (Negative) Urine WBC (Auto) Trace(0-5/hpf) (Absent) Urine RBC (Auto) Absent (Absent) Ur Squamous Epith Cells Present H (Absent) Urine Bacteria Absent (Absent) Urine Glucose 3+(>=500 mg/dl) H (Negative) Lab Statement: Any lab studies that have been ordered have been reviewed, and results considered in the medical decision making process. Diabetic Course/Dx - Course Course Of Treatment: U/A w/ +3 glucose, protein - otherwise neg for infection. SHe reports her glucose was "HI" this morning and after administering insulin, glucose is now 157. She admits she feels much better and does not want further w /u for LE weakness (ie. labs, ECG, etc). She is aware there could be other causes for her sx but urine infection does not appear to be one of them. Suspect high glucose triggered sx. Advised to follow closely at home and to f/u w/ PCP in 1-2 days. - Diagnoses Provider Diagnoses: Diabetes mellitus with insulin therapy, Weakness Discharge - Discharge Plan Condition: Stable Disposition: HOME Patient Education Materials: How to Check Your Blood Sugar (ED), Diabetes in the Older Adult (ED) Referrals: Fan Parsons MD [Primary Care Provider] - Additional Instructions: Suspect your symptoms of leg weakness were caused by very high glucose (sugar). This appears to have improved today since using insulin this morning. Call your PCP to follow-up tomorrow. If symptoms return in the meantime, return to the ED
[2017-04-27 15:39] VITALS: BP 155/68
== END 2017-04-27 15:37 | disposition home or self-care (01) ==
LOC: ED 13:32
DX: E11.9 Type 2 diabetes mellitus without complications (principal); Z79.4 Long term (current) use of insulin; R53.1 Weakness
CPT/HCPCS: 81003; 81015; 99282

== ENCOUNTER 2017-07-20 13:54 | Emergency (ER) | payer MEDICARE, MEDICAID ==
[2017-07-20 17:29] LABS: ABS Basophils 0.1 10^3/ul (0-0.2); ABS Eosinophils 0.3 10^3/ul (0-0.6); ABS Lymphocytes 2.5 10^3/ul (1.0-4.8); ABS Monocytes 0.9 10^3/ul (0-0.8); ABS Nucleated RBC 0 10^3/ul; Eosinophil % 2.7 % (0-6); Hematocrit 33 % (35-47); Hemoglobin 10.6 g/dl (12.0-16.0); Lymphocyte % 25.6 % (25-47); Mean Corpuscular HGB Conc 32 g/dl (31-36); Mean Corpuscular Hemoglobin 27 pg (27-31); Mean Corpuscular Volume 85 fL (80-97); Mean Platelet Volume 8.5 um3 (7.4-10.4); Nucleated Red Blood Cells % 0; Platelet Count 204 10^3/ul (150-450); Red Cell Distribution Width 17 % (10.5-15); White Blood Count 9.6 10^3/ul (3.5-10.8)
[2017-07-20 17:39] LABS: EGFR Non-African American 37.2 (>60)
[2017-07-20 18:18] LABS: Urine Appearance Clear; Urine Blood Negative (Negative); Urine Color Yellow; Urine Ketones Negative (Negative); Urine Protein 1+(30 mg/dL) (Negative); Urine Specific Gravity 1.015 (1.010-1.030); Urine Urobilinogen Negative (Negative)
--- NOTE | 2017-07-20 19:23 | RAD ---
INDICATION: RIGHT side flank pain began 1 week ago. History of kidney disease. Previous RIGHT lower abdomen cyst removal. COMPARISON: September 12, 2015 MRI lumbar sacral spine. TECHNIQUE: Multidetector CT images were obtained from the lung bases to the ischial tuberosities. Evaluation of the viscera is limited without IV contrast. Multiplanar reformation. REPORT: Limited images through the inferior thorax are remarkable for RIGHT coronary artery calcifications. Normal size liver with micronodular surface contour suspicious for cirrhosis. No conspicuous focal hepatic lesions within limits of noncontrast CT. Dependent stone at the gallbladder without additional CT abnormality of the gallbladder. Negative for biliary dilatation. Advanced atrophy of the pancreas. Unremarkable spleen. Splenule at the splenic hilum. Negative for CT abnormality of the upper GI, small bowel, or appendix. Mild colonic diverticulosis without findings of acute diverticulitis. Negative for ascites or free air. Small LEFT para midline supraumbilical fat-containing ventral hernia with evidence for inflammatory change. LEFT upper abdomen dermal and subcutaneous fat edema concerning for potential cellulitis. No visualized loculated abscess collection evident. Normal adrenal glands. Negative for urolithiasis or hydronephrosis. Few LEFT renal cysts with dominant 4.7 cm inferior pole cyst. Unremarkable nondilated ureters. Largely decompressed urinary bladder limiting assessment without suspicious finding. Enlarged uterus measuring up to 11.3 x 11.9 x 10.4 cm likely secondary to leiomyomas. Unremarkable adnexal regions. Negative for lymphadenopathy. Atherosclerotic calcification of normal diameter abdominal aorta and iliac arteries. Physiologic distention of the IVC. Diffuse moderately severe skeletal muscle atrophy. Negative for superficial or retroperitoneal hematoma. Chronic anterior column L1 compression fracture. Unchanged grade 1 L5-S1 anterolisthesis which appears secondary to chronic bilateral spondylolysis. Multilevel degenerative spondylosis and facet joint osteoarthritis. IMPRESSION: 1. Normal size liver with micronodular surface contour suspicious for cirrhosis. 2. Cholelithiasis. 3. Small LEFT para midline supraumbilical fat-containing ventral hernia with evidence for inflammatory change. Correlate for incarceration. 4. LEFT upper abdomen dermal and subcutaneous fat edema concerning for potential cellulitis. 5. Negative for urolithiasis or hydronephrosis. 6. Enlarged uterus measuring up to 11.3 x 11.9 x 10.4 cm likely secondary to leiomyomas.
[2017-07-20 20:04] VITALS: BP 174/100
--- NOTE | 2017-07-21 04:01 | ED ---
Lit Hastings Jennifer, scribed for Yoni Boudreaux MD on 07/20/17 at 1944 . Progress - Progress Note Progress Note: The patient is a sign out from Dr. Thomason pending CT Abd/Pel. CT Abd/Pel. Interpreted by a radiologist. IMPRESSION: 1. Normal size liver with micronodular surface contour suspicious for cirrhosis. 2. Cholelithiasis. 3. Small LEFT para midline supraumbilical fat-containing ventral hernia with evidence for inflammatory change. Correlate for incarceration. 4. LEFT upper abdomen dermal and subcutaneous fat edema concerning for potential cellulitis. 5. Negative for urolithiasis or hydronephrosis. 6. Enlarged uterus measuring up to 11.3 x 11.9 x 10.4 cm likely secondary to leiomyomas. Dr. Boudreaux has reviewed this report. The patient is comfortable and out in the hallway asking for food. Re-Evaluation - Re-Evaluation First Eval Re-Evaluation Time: 19:41 Change: Unchanged Comment: Upon re-evaluation, there is no pain or redness in the RUQ or flank. Pain is described along the right flank, there is no RUQ pain. The patient says she can't stay any longer today and would like to go home. Course/Dx - Course Course Of Treatment: The patient is a sign out from Dr. Thomason pending CT Abd/ Pel. CT showed 1. Normal size liver with micronodular surface contour suspicious for cirrhosis. 2. Cholelithiasis. 3. Small LEFT para midline supraumbilical fat-containing ventral hernia with evidence for inflammatory change. Correlate for incarceration. 4. LEFT upper abdomen dermal and subcutaneous fat edema concerning for potential. cellulitis. The patient says that she can't stay any longer and would like to go home. She is diagnosed with flank pain and cholelithiasis. She has no pain in the area of concern for cellulitis. There is no outward sign of redness, rash or otherwise either the area of pain on the right side or on the left side that is of concern on CT. She's had discomfort for quite some time. There is no pain in the right upper quadrant. Follow up closely with her primary care physician. - Diagnoses Provider Diagnoses: Flank pain, Cholelithiasis Discharge - Sign-Out/Discharge Documenting (check all that apply): Discharge/Admit/Transfer - Discharge Plan Disposition: HOME Patient Education Materials: Flank Pain (ED) Referrals: Fan Parsons MD [Primary Care Provider] - Additional Instructions: FOLLOW UP WITH YOUR PRIMARY CARE PHYSICIAN on as scheduled. You may need a ultrasound of your gallbladder or HIDA scan if symptoms persist RETURN TO THE EMERGENCY DEPARTMENT FOR ANY NEW OR WORSENING SYMPTOMS. Take your previously prescribed medications as needed for this discomfort. - Billing Disposition and Condition Condition: STABLE Disposition: HOME The documentation as recorded by the Lit quinonez Jennifer accurately reflects the service I personally performed and the decisions made by me, Yoni Boudreaux MD.
--- NOTE | 2017-07-21 10:40 | ED ---
Shin Hastings Gabriel, scribed for Derek Thomason MD on 07/20/17 at 1608 . Back Pain - HPI Summary HPI Summary: This patient is a 71 year old F presenting to [facility] with a chief complaint of right sided flank pain that began a week ago. The patient rates the pain 8/10 in severity and states it radiates across his back. Symptoms aggravated by nothing. Patient denies fever. Hx kidney stones and kidney infection - History of Current Complaint Chief Complaint: EDFlankPain Stated Complaint: ABD PAIN Time Seen by Provider: 07/20/17 16:01 Hx Obtained From: Patient Onset/Duration: Lasting Weeks - 1 Onset/Duration: Still Present Timing: Constant Severity Initially: Moderate Severity Currently: Moderate Pain Intensity: 8 Pain Scale Used: 0-10 Numeric Aggravating Symptom(s): Nothing Associated Signs And Symptoms: Positive: Negative - fever - Allergies/Home Medications Allergies/Adverse Reactions: Allergies Allergy/AdvReac Type Severity Reaction Status Date / Time No Known Allergies Allergy Verified 07/20/17 14:44 Home Medications: Home Medications Dicyclomine CAP* [Bentyl CAP*] 20 mg PO BID 07/20/17 [History Confirmed 07/20/17 ] metFORMIN* [Glucophage 500 MG TAB *] 500 mg PO TID 07/20/17 [History Confirmed 07/20/17] PMH/Surg Hx/FS Hx/Imm Hx Endocrine/Hematology History: Reports: Hx Diabetes - insulin dependent diabetic , Other Endocrine/Hematological Disorders - HIV POSITIVE Denies: Hx Thyroid Disease Cardiovascular History: Reports: Hx Hypercholesterolemia, Hx Hypertension, Other Cardiovascular Problems/Disorders - hyperlipidemia Denies: Hx Pacemaker/ICD Respiratory History: Reports: Hx Chronic Bronchitis, Hx Chronic Obstructive Pulmonary Disease (COPD) Denies: Hx Asthma GI History: Reports: Hx Gastroesophageal Reflux Disease Denies: Hx Ulcer History: Reports: Hx Kidney Infection, Hx Kidney Stones, Other Problems/ Disorders - hemorrhoids, herpes simplex Denies: Hx Renal Disease Musculoskeletal History: Reports: Hx Arthritis Sensory History: Reports: Hx Cataracts - left eye, Hx Contacts or Glasses - readers, Hx Eye Prosthesis - Rt, Other Sensory Impairments - no contacts - wears eyeglasses Denies: Hx Hearing Aid Opthamlomology History: Reports: Hx Cataracts - left eye, Hx Contacts or Glasses - readers, Hx Eye Prosthesis - Rt, Other Sensory Impairments - no contacts - wears eyeglasses Neurological History: Reports: Hx Nerve Disease - neuropathy, Other Neuro Impairments/Disorders - schizophrenia Psychiatric History: Reports: Hx Depression, Hx Substance Abuse Denies: Hx Panic Disorder - Cancer History Hx Chemotherapy: No Hx Radiation Therapy: No - Surgical History Surgery Procedure, Year, and Place: right eye prosthetic - d/t trauma. right lower abdomen cyst removal Hx Anesthesia Reactions: No - Immunization History Date of Tetanus Vaccine: utd Date of Influenza Vaccine: 03/2017 Infectious Disease History: No Infectious Disease History: Reports: Hx Hepatitis - chronic HEP C, Hx Human Immunodeficiency Virus (HIV) Denies: Traveled Outside the [place] in Last 30 Days - Family History Known Family History: Positive: Cardiac Disease, Hypertension - Social History Alcohol Use: None Hx Substance Use: No Substance Use Type: Reports: None Substance Use Comment - Amount & Last Used: reports over 20 yrs ago IV drug user Hx Tobacco Use: Yes Smoking Status (MU): Former Smoker Amount Used/How Often: 2 ppd for 20 yrs Have You Smoked in the Last Year: No Review of Systems Negative: Fever Positive: flank pain All Other Systems Reviewed And Are Negative: Yes Physical Exam - Summary Physical Exam Summary: VITAL SIGNS: Reviewed. GENERAL: obese female who is lying comfortable in the stretcher. Patient is not in any acute respiratory distress. HEAD AND FACE: No signs of trauma. No ecchymosis, hematomas or skull depressions. No sinus tenderness. EYES: PERRLA, EOMI x 2, No injected conjunctiva, no nystagmus. EARS: Hearing grossly intact. Ear canals and tympanic membranes are within normal limits. MOUTH: Oropharynx within normal limits. NECK: Supple, trachea is midline, no adenopathy, no JVD, no carotid bruit, no c- spine tenderness, neck with full ROM. CHEST: Symmetric, no tenderness at palpation LUNGS: Clear to auscultation bilaterally. No wheezing or crackles. CVS: Regular rate and rhythm, S1 and S2 present, no murmurs or gallops appreciated. ABDOMEN: Soft, non-tender. No signs of distention. No rebound no guarding, and no masses palpated. Bowel sounds are normal. Back: right side CVA tenderness EXTREMITIES: FROM in all major joints, no edema, no cyanosis or clubbing. NEURO: Alert and oriented x 3. No acute neurological deficits. Speech is normal and follows commands. SKIN: Dry and warm Triage Information Reviewed: Yes Vital Signs On Initial Exam: Initial Vitals Temp Pulse Resp BP Pulse Ox 97.4 F 104 20 145/87 99 07/20/17 14:39 07/20/17 14:39 07/20/17 14:39 07/20/17 14:39 07/20/17 14:39 Vital Signs Reviewed: Yes Diagnostics - Vital Signs Vital Signs Temp Pulse Resp BP Pulse Ox 07/20/17 14:39 97.4 F 104 20 145/87 99 - Laboratory Lab Results: Lab Results 07/20/17 07/20/17 07/20/17 Range/Units 17:06 17:06 17:56 WBC 9.6 (3.5-10.8) 10^3/ul RBC 3.90 L (4.0-5.4) 10^6/ul Hgb 10.6 L (12.0-16.0) g/dl Hct 33 L (35-47) % MCV 85 (80-97) fL MCH 27 (27-31) pg MCHC 32 (31-36) g/dl RDW 17 H (10.5-15) % Plt Count 204 (150-450) 10^3/ul MPV 8.5 (7.4-10.4) um3 Neut % (Auto) 61.9 (38-83) % Lymph % (Auto) 25.6 (25-47) % Cuming % (Auto) 9.0 H (0-7) % Eos % (Auto) 2.7 (0-6) % Baso % (Auto) 0.8 (0-2) % Absolute Neuts (auto) 6.0 (1.5-7.7) 10^3/ul Absolute Lymphs (auto) 2.5 (1.0-4.8) 10^3/ul Absolute Monos (auto) 0.9 H (0-0.8) 10^3/ul Absolute Eos (auto) 0.3 (0-0.6) 10^3/ul Absolute Basos (auto) 0.1 (0-0.2) 10^3/ul Absolute Nucleated RBC 0 10^3/ul Nucleated RBC % 0 Sodium 138 L (139-145) mmol/L Potassium 5.0 (3.5-5.0) mmol/L Chloride 101 (101-111) mmol/L Carbon Dioxide 28 (22-32) mmol/L Anion Gap 9 (2-11) mmol/L BUN 20 (6-24) mg/dL Creatinine 1.40 H (0.51-0.95) mg/dL Est GFR ( Amer) 47.8 (>60) Est GFR (Non-Af Amer) 37.2 (>60) BUN/Creatinine Ratio 14.3 (8-20) Glucose 170 H (70-100) mg/dL Calcium 10.1 (8.6-10.3) mg/dL Total Bilirubin 0.40 (0.2-1.0) mg/dL AST 22 (13-39) U/L ALT 20 (7-52) U/L Alkaline Phosphatase 79 (34-104) U/L C-Reactive Protein 3.31 (< 5.00) mg/L Total Protein 7.8 (6.4-8.9) g/dL Albumin 4.4 (3.2-5.2) g/dL Globulin 3.4 (2-4) g/dL Albumin/Globulin Ratio 1.3 (1-3) Lipase 17 (11.0-82.0) U/L Urine Color Yellow Urine Appearance Clear Urine pH 5.0 (5-9) Ur Specific [place] 1.015 (1.010-1.030) Urine Protein 1+(30 mg/dl) A (Negative) Urine Ketones Negative (Negative) Urine Blood Negative (Negative) Urine Nitrate Negative (Negative) Urine Bilirubin Negative (Negative) Urine Urobilinogen Negative (Negative) Ur Leukocyte Esterase Trace A (Negative) Urine WBC (Auto) 1+(6-10/hpf) A (Absent) Urine RBC (Auto) Absent (Absent) Ur Squamous Epith Cells Present A (Absent) Urine Bacteria Absent (Absent) Urine Glucose Negative (Negative) Result Diagrams: 07/20/17 17:06 07/20/17 17:06 Lab Statement: Any lab studies that have been ordered have been reviewed, and results considered in the medical decision making process. Back Pain Course/Dx - Course Course Of Treatment: This patient is a 71 year old F presenting to [facility] with a chief complaint of right sided flank pain that began a week ago. Bloodwork and urinalysis were obtained. The patient will be signed out to Dr. Boudreaux pending CT Abd/Pel. This patient is a 71-year-old female who presents to the emergency department with a chief complaint of right flank pain. The patient reports that she has history of kidney stones. The pain is 6 out of 10 without any radiation. She denies any abdominal pain, nausea vomiting diarrhea or constipation. Blood test results without any significant abnormality except for creatinine 1.4 glucose 170. Urinalysis is contaminated therefore contacted the patient has a UTI. However we will send the urine for urine culture. Abdominopelvic CT impression. Since the patient doesnt have any acute pathology and the patient will be discharged home with follow-up with primary care physician. Patient was instructed to return to the emergency room if any symptoms worsen. I discussed all the findings and test results with the patient. Patient was instructed to return to the emergency room immediately if any of the symptoms return or worsens. Plan of care was discussed with the patient and understands and agrees. The patients care was signed out to Dr. Boudreaux at shift change. - Diagnoses Provider Diagnoses: Flank pain, Cholelithiasis Discharge - Sign-Out/Discharge Documenting (check all that apply): Sign-Out Patient Signing out patient TO: Yoni Boudreaux - pending CT Abd/Pel - Discharge Plan Disposition: HOME Patient Education Materials: Flank Pain (ED) Referrals: Fan Parsons MD [Primary Care Provider] - Additional Instructions: FOLLOW UP WITH YOUR PRIMARY CARE PHYSICIAN on as scheduled. You may need a ultrasound of your gallbladder or HIDA scan if symptoms persist RETURN TO THE EMERGENCY DEPARTMENT FOR ANY NEW OR WORSENING SYMPTOMS. Take your previously prescribed medications as needed for this discomfort. - Billing Disposition and Condition Disposition: HOME The documentation as recorded by the Shin quinonez Gabriel accurately reflects the service I personally performed and the decisions made by , Derek Thomason MD.
== END 2017-07-20 20:03 | disposition home or self-care (01) ==
LOC: ED 13:54
DX: K80.20 Calculus of gallbladder without cholecystitis without obstruction (principal); K43.9 Ventral hernia without obstruction or gangrene; D25.9 Leiomyoma of uterus, unspecified; R60.9 Edema, unspecified; Z87.442 Personal history of urinary calculi; Z87.891 Personal history of nicotine dependence
CPT/HCPCS: 36415; 74176; 80053; 81003; 81015; 83690; 85025; 86140; 87086; 99283

== ENCOUNTER 2018-12-27 11:46 | Emergency (ER) | payer MEDICARE, MEDICAID ==
[2018-12-27] MEDS ORDERED: Proparacaine 0.5% OPHTH.SOL* 15 ML BTL LEFT EYE ONE (11:49)
--- NOTE | 2018-12-27 11:57 | ED ---
Throat Pain/Nasal Congestion - HPI Summary HPI Summary: This patient is a 73 year old female brought in by EMS presenting to [facility] with a chief complaint of left eye pain since 2 days ago. She states the left eye pain is atraumatic. The patient has a Hx of right eye blindness. EMS states the patient has been running into objects around her house because she will keep her left eye closed due to the pain. - History of Current Complaint Time Seen by Provider: 12/27/18 11:48 Hx Obtained From: Patient Onset/Duration: Lasting Days - Allergies/Home Medications Allergies/Adverse Reactions: Allergies Allergy/AdvReac Type Severity Reaction Status Date / Time No Known Allergies Allergy Verified 07/20/17 14:44 PMH/Surg Hx/FS Hx/Imm Hx Endocrine/Hematology History: Reports: Hx Diabetes - insulin dependent diabetic , Other Endocrine/Hematological Disorders - HIV POSITIVE Denies: Hx Thyroid Disease Cardiovascular History: Reports: Hx Hypercholesterolemia, Hx Hypertension, Other Cardiovascular Problems/Disorders - hyperlipidemia Denies: Hx Pacemaker/ICD Respiratory History: Reports: Hx Chronic Bronchitis, Hx Chronic Obstructive Pulmonary Disease (COPD) Denies: Hx Asthma GI History: Reports: Hx Gastroesophageal Reflux Disease Denies: Hx Ulcer History: Reports: Hx Kidney Infection, Other Problems/Disorders - hemorrhoids, herpes simplex Denies: Hx Kidney Stones, Hx Renal Disease Musculoskeletal History: Reports: Hx Arthritis Sensory History: Reports: Hx Cataracts - left eye, Hx Contacts or Glasses - readers, Hx Eye Prosthesis - Rt, Hx Vision Problem - RIGHT EYE PROSTHETIC, Other Sensory Impairments - no contacts - wears eyeglasses Denies: Hx Glaucoma, Hx Hearing Aid Opthamlomology History: Reports: Hx Cataracts - left eye, Hx Contacts or Glasses - readers, Hx Eye Prosthesis - Rt, Hx Vision Problem - RIGHT EYE PROSTHETIC, Other Sensory Impairments - no contacts - wears eyeglasses Denies: Hx Glaucoma Neurological History: Reports: Hx Nerve Disease - neuropathy, Other Neuro Impairments/Disorders - schizophrenia Psychiatric History: Reports: Hx Depression, Hx Schizophrenia, Hx Substance Abuse Denies: Hx Panic Disorder - Cancer History Hx Chemotherapy: No Hx Radiation Therapy: No - Surgical History Surgery Procedure, Year, and Place: right eye prosthetic - d/t trauma. right lower abdomen cyst removal Hx Anesthesia Reactions: No - Immunization History Date of Tetanus Vaccine: utd Date of Influenza Vaccine: 03/2017 Infectious Disease History: Reports: Hx Hepatitis - chronic HEP C, Hx Human Immunodeficiency Virus (HIV), Hx of Known/Suspected MRSA - Family History Known Family History: Positive: Cardiac Disease, Hypertension - Social History Alcohol Use: None Hx Substance Use: No Substance Use Type: Reports: None Substance Use Comment - Amount & Last Used: reports over 20 yrs ago IV drug user Hx Tobacco Use: Yes Smoking Status (MU): Former Smoker Type: Cigarettes Amount Used/How Often: 2 ppd for 20 yrs Have You Smoked in the Last Year: No Review of Systems Negative: Fever Positive: Other - Pain around the left eye. All Other Systems Reviewed And Are Negative: Yes Physical Exam - Summary Physical Exam Summary: Appearance: Well-appearing, Well-nourished, lying in bed comfortably Skin: Warm, dry, no obvious rash Eyes: Left eye is injected. Pupils reactive. No problem with visual acuity on confrontation. Pressure measured by Tunnel pen is 12. ENT: mucous membranes moist, pharynx appears normal Neck: Supple, nontender Respiratory: Clear to auscultation, no signs of respiratory distress Cardiovascular: Normal S1, S2. No murmurs. Normal distal pulses in tibial and radial bilaterally. Abdomen: Soft, nontender, normal active bowel sounds present Musculoskeletal: Normal, Strength/ROM Intact Neurological: A&Ox3, awake and alert, mentation is normal, speech is fluent and appropriate Psychiatric: affect is normal, does not appear anxious or depressed Triage Information Reviewed: Yes Vital Signs Reviewed: Yes Procedures - Sedation Patient Received Moderate/Deep Sedation with Procedure: No EENT Course/Dx - Course Course Of Treatment: This patient is a 73 year old female brought in by EMS presenting to [facility] with a chief complaint of left eye pain since 2 days ago. Physical exam revealed Left eye is injected. Pupils reactive. No problem with visual acuity on confrontation. Pressure measured by Tunnel pen is 12. The patient was given eye ointment for pain and antibiotic eye drops in the ED and to take home with her. A plan for discharge was discussed with the patient and she was agreeable with this plan. - Diagnoses Provider Diagnoses: Conjunctivitis Discharge ED - Sign-Out/Discharge Documenting (check all that apply): Patient Departure - Discharge - Discharge Plan Condition: Stable Disposition: HOME Patient Education Materials: Conjunctivitis (ED) Referrals: Thompson Kirkland MD [Medical Doctor] - 2 Days (if not improving) Additional Instructions: Use the drops and then the ointment 4 times daily until better, which will likely be several days to a week. Contact the eye doctor for a followup appointment this week. - Billing Disposition and Condition Condition: STABLE Disposition: Home - Attestation Statements Document Initiated by Gaston: Yes Documenting Scribe: Paulie Mehta Provider For Whom Gaston is Documenting (Include Credential): Gopi Sarmiento MD Scribe Attestation: IPaulie, scribed for Gopi Sarmiento MD on 12/28/18 at 0726. Scribe Documentation Reviewed: Yes Provider Attestation: The documentation as recorded by the Paulie quinonez accurately reflects the service I personally performed and the decisions made by me, Gopi Sarmiento MD Status of Scribe Document: Viewed
[2018-12-27 12:45] VITALS: BP 120/75
[2018-12-27] MEDS ORDERED: Ketorolac 0.5% OPHTH (NF) 0.5 % 5 ML BTL LEFT EYE SCH (13:00)
[2018-12-27] MEDS ORDERED: Erythromycin OPTH OINT* APPLIC OINT LEFT EYE SCH (14:00)
== END 2018-12-27 12:50 | disposition home or self-care (01) ==
LOC: ED 11:46
DX: H10.9 Unspecified conjunctivitis (principal); E11.9 Type 2 diabetes mellitus without complications; I10 Essential (primary) hypertension; E78.5 Hyperlipidemia, unspecified; E78.00 Pure hypercholesterolemia, unspecified; J44.9 Chronic obstructive pulmonary disease, unspecified; K21.9 Gastro-esophageal reflux disease without esophagitis; M19.90 Unspecified osteoarthritis, unspecified site; F32.9 Major depressive disorder, single episode, unspecified; F20.9 Schizophrenia, unspecified; Z79.4 Long term (current) use of insulin; Z21 Asymptomatic human immunodeficiency virus [HIV] infection status; Z86.19 Personal history of other infectious and parasitic diseases; Z87.891 Personal history of nicotine dependence; Z86.14 Personal history of Methicillin resistant Staphylococcus aureus infection
CPT/HCPCS: 99282; A9270-GY

== ENCOUNTER 2018-12-27 13:17 | Emergency (ER) | payer MEDICARE, MEDICAID ==
--- NOTE | 2018-12-27 15:32 | ED ---
Throat Pain/Nasal Congestion - HPI Summary HPI Summary: This patient is a 73 year old female returning to [facility] with a chief complaint of the same eye pain as before. She states the previous pain medication did not help and she would like to manage the pain better. She states the pain is severe and rates it 10/10 in severity. - History of Current Complaint Chief Complaint: EDEyeProblem Hx Obtained From: Patient - Allergies/Home Medications Allergies/Adverse Reactions: Allergies Allergy/AdvReac Type Severity Reaction Status Date / Time No Known Allergies Allergy Verified 07/20/17 14:44 PMH/Surg Hx/FS Hx/Imm Hx Endocrine/Hematology History: Reports: Hx Diabetes - insulin dependent diabetic , Other Endocrine/Hematological Disorders - HIV POSITIVE Denies: Hx Thyroid Disease Cardiovascular History: Reports: Hx Hypercholesterolemia, Hx Hypertension, Other Cardiovascular Problems/Disorders - hyperlipidemia Denies: Hx Pacemaker/ICD Respiratory History: Reports: Hx Chronic Bronchitis, Hx Chronic Obstructive Pulmonary Disease (COPD) Denies: Hx Asthma GI History: Reports: Hx Gastroesophageal Reflux Disease Denies: Hx Ulcer History: Reports: Hx Kidney Infection, Other Problems/Disorders - hemorrhoids, herpes simplex Denies: Hx Kidney Stones, Hx Renal Disease Musculoskeletal History: Reports: Hx Arthritis Sensory History: Reports: Hx Cataracts - left eye, Hx Contacts or Glasses - readers, Hx Eye Prosthesis - Rt, Hx Vision Problem - RIGHT EYE PROSTHETIC, Other Sensory Impairments - no contacts - wears eyeglasses Denies: Hx Glaucoma, Hx Hearing Aid Opthamlomology History: Reports: Hx Cataracts - left eye, Hx Contacts or Glasses - readers, Hx Eye Prosthesis - Rt, Hx Vision Problem - RIGHT EYE PROSTHETIC, Other Sensory Impairments - no contacts - wears eyeglasses Denies: Hx Glaucoma Neurological History: Reports: Hx Nerve Disease - neuropathy, Other Neuro Impairments/Disorders - schizophrenia Psychiatric History: Reports: Hx Depression, Hx Schizophrenia, Hx Substance Abuse Denies: Hx Panic Disorder - Cancer History Hx Chemotherapy: No Hx Radiation Therapy: No - Surgical History Surgery Procedure, Year, and Place: right eye prosthetic - d/t trauma. right lower abdomen cyst removal Hx Anesthesia Reactions: No - Immunization History Date of Tetanus Vaccine: utd Date of Influenza Vaccine: 03/2017 Infectious Disease History: No Infectious Disease History: Reports: Hx Hepatitis - chronic HEP C, Hx Human Immunodeficiency Virus (HIV), Hx of Known/Suspected MRSA Denies: Traveled Outside the [place] in Last 30 Days - Family History Known Family History: Positive: Cardiac Disease, Hypertension - Social History Alcohol Use: None Hx Substance Use: No Substance Use Type: Reports: None Substance Use Comment - Amount & Last Used: reports over 20 yrs ago IV drug user Hx Tobacco Use: Yes Smoking Status (MU): Former Smoker Type: Cigarettes Amount Used/How Often: 2 ppd for 20 yrs Have You Smoked in the Last Year: No Review of Systems Negative: Fever Positive: Other - Eye pain All Other Systems Reviewed And Are Negative: Yes Physical Exam - Summary Physical Exam Summary: Appearance: Well-appearing, Well-nourished, lying in bed comfortably Skin: Warm, dry, no obvious rash Eyes: Left eye is injected. Pupils reactive. No problem with visual acuity on confrontation. Pressure measured by Tunnel pen is 12. ENT: mucous membranes moist, pharynx appears normal Neck: Supple, nontender Respiratory: Clear to auscultation, no signs of respiratory distress Cardiovascular: Normal S1, S2. No murmurs. Normal distal pulses in tibial and radial bilaterally. Abdomen: Soft, nontender, normal active bowel sounds present Musculoskeletal: Normal, Strength/ROM Intact Neurological: A&Ox3, awake and alert, mentation is normal, speech is fluent and appropriate Psychiatric: affect is normal, does not appear anxious or depressed Triage Information Reviewed: Yes Vital Signs On Initial Exam: Initial Vitals Temp Pulse Resp BP Pulse Ox 97.2 F 102 16 0/0 100 12/27/18 13:46 12/27/18 13:46 12/27/18 13:46 12/27/18 13:46 12/27/18 13:46 Vital Signs Reviewed: Yes Procedures - Sedation Patient Received Moderate/Deep Sedation with Procedure: No Diagnostics - Vital Signs Vital Signs Temp Pulse Resp BP Pulse Ox 12/27/18 13:46 97.2 F 102 16 0/0 100 - Laboratory Lab Statement: Any lab studies that have been ordered have been reviewed, and results considered in the medical decision making process. EENT Course/Dx - Course Course Of Treatment: This patient is a 73 year old female returning to [facility] with a chief complaint of the same eye pain as before. She states the previous pain medication did not help and she would like to manage the pain better. She was given a new diluted eyedrop mixture to use only until tomorrow. A plan for discharge was discussed with the patient and she was agreeable with this plan. - Diagnoses Provider Diagnoses: Conjunctivitis Discharge ED - Sign-Out/Discharge Documenting (check all that apply): Patient Departure - Discharge - Discharge Plan Condition: Stable Disposition: HOME Patient Education Materials: Conjunctivitis (ED) Referrals: Fan Parsons MD [Primary Care Provider] - Additional Instructions: Use a couple of drops every few hours to control the pain, but do not use past tomorrow afternoon. If you have a lot more pain by then you really have to see an realty loan specialist, there isn't anything more we can do for you here. OTC pain medications like motrin or naprosyn can be helpful as well. - Billing Disposition and Condition Condition: STABLE Disposition: Home - Attestation Statements Document Initiated by Gaston: Yes Documenting Scribe: Paulie Mehta Provider For Whom Gaston is Documenting (Include Credential): Gopi Sarmiento MD Scribe Attestation: I, Paulie Mehta, scribed for Gopi Sarmiento MD on 12/30/18 at 1818. Scribe Documentation Reviewed: Yes Provider Attestation: The documentation as recorded by the Paulie quinonez accurately reflects the service I personally performed and the decisions made by me, Gopi Sarmiento MD Status of Scribe Document: Viewed
[2018-12-27 16:10] VITALS: BP 168/92
== END 2018-12-27 15:39 | disposition home or self-care (01) ==
LOC: ED 13:17
DX: H10.9 Unspecified conjunctivitis (principal); E11.9 Type 2 diabetes mellitus without complications; E78.00 Pure hypercholesterolemia, unspecified; I10 Essential (primary) hypertension; J44.9 Chronic obstructive pulmonary disease, unspecified; K21.9 Gastro-esophageal reflux disease without esophagitis; B20 Human immunodeficiency virus [HIV] disease; Z87.891 Personal history of nicotine dependence
CPT/HCPCS: 99281

== ENCOUNTER 2019-02-04 02:00 | Emergency (ER) | payer MEDICARE, MEDICAID ==
[2019-02-04] MEDS ORDERED: NS 0.9% 1000 ML** 1,000 ML IV ONE (02:21)
[2019-02-04] MEDS ORDERED: Ketorolac INJ* 30 MG/ML 1 ML VIAL IV PUSH ONE (02:21)
[2019-02-04] MEDS ORDERED: Ondansetron INJ* 2 MG/ML VIAL IV ONE ×3 (02:21→06:54)
[2019-02-04] MEDS ORDERED: fentaNYL* 50 MCG/ML 2 ML VIAL (100 MCG VIAL) IV SLOW PU ONE ×2 (02:31→03:22)
--- NOTE | 2019-02-04 02:43 | ED ---
Abdominal Pain/Female - HPI Summary HPI Summary: This pt is a 73 Y/O F presenting to [facility] with a CC of abdominal pain that started on 02/03/19 and is currently rated a 10/10 in severity and states that the pain is diffuse. She states that she has nausea and vomiting and states that she has been having bloody stools. She states that the stool is bright red. She states that the pain is described as cramping. Upon her initial visit she is aggressive and calling staff names and refuses to answer questions or get dressed in a hospital gown. She also refuses to have herself examined. - History of Current Complaint Chief Complaint: EDAbdPain Stated Complaint: RECTAL BLEEDING PER EMS Time Seen by Provider: 02/04/19 02:19 Hx Obtained From: Patient Onset/Duration: Sudden Onset, Lasting Days - 1 Timing: Constant Severity Initially: Severe Severity Currently: Severe Pain Intensity: 10 Pain Scale Used: 0-10 Numeric Location: Diffuse Character: Cramping Aggravating Factor(s): Nothing Alleviating Factor(s): Nothing Associated Signs and Symptoms: Positive: Blood in Stool - bright red, Nausea, Vomiting. Negative: Fever, Diarrhea Allergies/Adverse Reactions: Allergies Allergy/AdvReac Type Severity Reaction Status Date / Time No Known Allergies Allergy Verified 02/04/19 02:04 PMH/Surg Hx/FS Hx/Imm Hx Previously Healthy: Yes Endocrine/Hematology History: Reports: Hx Diabetes - insulin dependent diabetic , Other Endocrine/Hematological Disorders - HIV POSITIVE Denies: Hx Thyroid Disease Cardiovascular History: Reports: Hx Hypercholesterolemia, Hx Hypertension, Other Cardiovascular Problems/Disorders - hyperlipidemia Denies: Hx Pacemaker/ICD Respiratory History: Reports: Hx Chronic Bronchitis, Hx Chronic Obstructive Pulmonary Disease (COPD) Denies: Hx Asthma GI History: Reports: Hx Gastroesophageal Reflux Disease Denies: Hx Ulcer History: Reports: Hx Kidney Infection, Other Problems/Disorders - hemorrhoids, herpes simplex Denies: Hx Kidney Stones, Hx Renal Disease Musculoskeletal History: Reports: Hx Arthritis Sensory History: Reports: Hx Cataracts - left eye, Hx Contacts or Glasses - readers, Hx Eye Prosthesis - Rt, Hx Vision Problem - RIGHT EYE PROSTHETIC, Other Sensory Impairments - no contacts - wears eyeglasses Denies: Hx Glaucoma, Hx Hearing Aid Opthamlomology History: Reports: Hx Cataracts - left eye, Hx Contacts or Glasses - readers, Hx Eye Prosthesis - Rt, Hx Vision Problem - RIGHT EYE PROSTHETIC, Other Sensory Impairments - no contacts - wears eyeglasses Denies: Hx Glaucoma Neurological History: Reports: Hx Nerve Disease - neuropathy, Other Neuro Impairments/Disorders - schizophrenia Psychiatric History: Reports: Hx Depression, Hx Schizophrenia, Hx Substance Abuse Denies: Hx Panic Disorder - Cancer History Hx Chemotherapy: No Hx Radiation Therapy: No - Surgical History Surgery Procedure, Year, and Place: right eye prosthetic - d/t trauma. right lower abdomen cyst removal Hx Anesthesia Reactions: No - Immunization History Date of Tetanus Vaccine: utd Date of Influenza Vaccine: 03/2017 Infectious Disease History: No Infectious Disease History: Reports: Hx Hepatitis - chronic HEP C, Hx Human Immunodeficiency Virus (HIV), Hx of Known/Suspected MRSA Denies: Traveled Outside the [place] in Last 30 Days - Family History Known Family History: Positive: Cardiac Disease, Hypertension - Social History Occupation: Retired Lives: Alone Alcohol Use: None Hx Substance Use: No Substance Use Type: Reports: None Substance Use Comment - Amount & Last Used: reports over 20 yrs ago IV drug user Hx Tobacco Use: Yes Smoking Status (MU): Former Smoker Type: Cigarettes Amount Used/How Often: 2 ppd for 20 yrs Have You Smoked in the Last Year: No Review of Systems - ROS Summary Review of Systems Summary: Home Medications Medication Instructions Recorded Confirmed Type Chlorthalidone TAB* [Hygroton TAB*] 50 mg PO QAM 02/07/13 12/23/17 History Lisinopril TAB* [Prinivil TAB 10 40 mg PO DAILY 02/07/13 12/23/17 History MG*] Simvastatin TAB(NF) [Zocor 20 MG 20 mg PO QAM 02/07/13 12/23/17 History (NF)] Exenatide Microspheres [Bydureon 2 mg SUBCUT WEEKLY 06/18/15 12/24/17 History Pen] ValACYclovir (*) [Valtrex 1 GM(*)] 1 gm PO QAM 06/18/15 12/23/17 History Diclofenac 1% GEL (NF) [Voltaren 2 grams TOPICAL QID PRN 07/31/15 12/24/17 History 1% GEL (NF)] Insulin GLARGINE(*) [Lantus(*)] 60 units SUBCUT BID 11/14/16 12/23/17 History Abacavir/Dolutegravir/Lamivudi 1 tab PO DAILY 04/27/17 12/24/17 History [Triumeq Tablet (Nf)] Albuterol HFA INHALER* [Ventolin 2 puff INH Q4H PRN 04/27/17 12/24/17 History HFA Inhaler*] Cyclosporine 0.05% OPHTH (NF) 0.05 % OP Q12H 04/27/17 12/24/17 History [Restasis 0.05% OPHTH] Famotidine TAB* [Pepcid 20 MG TAB*] 20 mg PO DAILY 04/27/17 12/23/17 History Insulin NPH Human Isophane 15 units IM BID AC 04/27/17 12/24/17 History [Humulin N Kwikpen] QUEtiapine TAB* [Seroquel 25 MG 25 mg PO DAILY 04/27/17 12/23/17 History TAB*] Dicyclomine CAP* [Bentyl CAP*] 20 mg PO BID 07/20/17 12/23/17 History Ferrous Sulfate TAB* 325 mg PO DAILY #30 tab 12/25/17 Rx Potassium Chlor TAB* [Klor Con ER 10 meq PO DAILY #30 tab.er 12/25/17 Rx TAB 10 MEQ*] Pregabalin CAP(*) [Lyrica CAP(*)] 25 mg PO DAILY #30 cap MDD 25mg 12/25/17 Rx ceFUROXime 250 MG TAB [Ceftin TAB 250 mg PO BID 4 Days #8 tab 12/25/17 Rx 250 MG(*)] Negative: Fever Positive: Abdominal Pain - diffuse, Vomiting, Nausea. Negative: Diarrhea Positive: other - blood in stool (bright red) All Other Systems Reviewed And Are Negative: Yes Physical Exam - Summary Physical Exam Summary: General: Well-developed, Well-nourished female. No acute distress. HEENT: Normocephalic, Atraumatic. Eyes: Conjuctiva normal, PERRL. Ears: TMs within normal limits. Nares: (-) discharge, (-) erythema. Oropharynx: Clear, mucous membranes moist, (-) exudates. Neck: Soft, FROM, (-) lymphadenopathy, (-) thyromegaly, (-) JVD. Cardiovascular: Normal sinus rhythm, (-) murmur. Lungs: Clear to auscultation bilaterally (-) wheezes, (-) rales, (-) rhonchi. Abdomen: Soft, diffuse tenderness, non-distended, (-) organomegaly, normal bowel sounds. Back: (-) CVA tenderness Extremities: No edema. Skin: Warm, dry, (-) rash. Neuro: Alert and oriented x3, no focal deficits. Psychiatric: Mood normal, affect normal. Triage Information Reviewed: Yes Vital Signs On Initial Exam: Initial Vitals Temp Pulse Resp BP Pulse Ox 97.9 F 48 18 130/79 100 02/04/19 02:02 02/04/19 02:02 02/04/19 02:02 02/04/19 02:02 02/04/19 02:02 Vital Signs Reviewed: Yes Procedures - Sedation Patient Received Moderate/Deep Sedation with Procedure: No Diagnostics - Vital Signs Vital Signs Temp Pulse Resp BP Pulse Ox 02/04/19 02:02 97.9 F 48 18 130/79 100 - Laboratory Result Diagrams: 02/04/19 02:35 02/04/19 02:35 Lab Statement: Any lab studies that have been ordered have been reviewed, and results considered in the medical decision making process. - CT CT A/P CT Interpretation Completed By: Radiologist Summary of CT Findings: No significant abnormal CT findings in the abdomen with the exception that. portions of the descending colon and sigmoid colon are empty with some. thickening of the wall. Mild mesenteric inflammation seen. Thickening of the. anterior left pararenal space as well as in left paracolic gutter which was not. seen on prior study of 07/20/2017. This could represent a developing colitis. No bowel obstruction. ED physician has reviewed this report. Abdominal Pain Fem Course/Dx - Course Course Of Treatment: 73-year-old female presents with severe abdominal pain. Screaming and moaning constantly. Patient treated with fentanyl 2, Toradol, Zofran, Ativan. IV fluids. Workup demonstrates no significant acute process. Patient discharged to home with Zofran. Follow up with PCP. Follow sooner for any worsening symptoms. - Diagnoses Provider Diagnoses: Abdominal pain Discharge ED - Sign-Out/Discharge Documenting (check all that apply): Patient Departure - discharge - Discharge Plan Condition: Stable Disposition: HOME Prescriptions: Ondansetron ODT TAB* [Zofran 4 MG Odt TAB*] 4 mg PO Q8H PRN #12 tab.odt PRN Reason: Nausea Patient Education Materials: Acute Abdominal Pain (ED) Referrals: Fan Parsons MD [Primary Care Provider] - 2 Days Additional Instructions: PLEASE FOLLOW UP WITH YOUR PRIMARY CARE PROVIDER IN 1-3 DAYS AND RETURN TO THE EMERGENCY DEPARTMENT FOR ANY NEW OR WORSE SYMPTOMS. - Billing Disposition and Condition Condition: STABLE Disposition: Home - Attestation Statements Document Initiated by Gaston: Yes Documenting Scribe: Jacob Ren Provider For Whom Gaston is Documenting (Include Credential): Edie Cuenca MD Scribe Attestation: Jacob Hastings, scribed for Edie Cuenca MD on 02/05/19 at 2016. Scribe Documentation Reviewed: Yes Provider Attestation: The documentation as recorded by the Jacob quinonez accurately reflects the service I personally performed and the decisions made by me, Edie Cuenca MD Status of Scribe Document: Viewed
[2019-02-04 02:46] LABS: ABS Eosinophils 0.1 10^3/ul (0-0.6); ABS Neutrophils 11.1 10^3/ul (1.5-7.7); Eosinophil % 0.5 %; Hematocrit 35 % (35-47); Hemoglobin 10.8 g/dL (12.0-16.0); Lymphocyte % 13.9 %; Mean Corpuscular HGB Conc 31 g/dL (31-36); Mean Corpuscular Hemoglobin 26 pg (27-31); Mean Corpuscular Volume 83 fL (80-97); Mean Platelet Volume 8.3 fL (7.4-10.4); Platelet Count 252 10^3/uL (150-450); Red Blood Count 4.16 10^6 /uL (3.70-4.87); Red Cell Distribution Width 17 % (10-15); White Blood Count 14.2 10^3/uL (3.5-10.8)
[2019-02-04 02:55] LABS: Albumin 3.9 g/dL (3.2-5.2); CO2 Carbon Dioxide 21 mmol/L (22-32); Calcium 9.1 mg/dL (8.6-10.3); Chloride 104 mmol/L (101-111); Sodium 133 mmol/L (135-145)
[2019-02-04 03:02] LABS: ALT 17 U/L (7-52); Albumin/Globulin Ratio 1.3 (1-3); Alkaline Phosphatase 112 U/L (34-104); BUN/Creatinine Ratio 14.7 (8-20); Blood Urea Nitrogen 22 mg/dL (6-24); C Reactive Protein 135.22 mg/L (<8.01); EGFR African American 41.3 (>60); EGFR Non-African American 34.1 (>60); Globulin 3.1 g/dL (2-4); Glucose 199 mg/dL (70-100)
[2019-02-04 03:11] LABS: Anion Gap 8 mmol/L (2-11); Potassium 4.5 mmol/L (3.5-5.0)
[2019-02-04 03:14] LABS: INR 1.23 (0.82-1.09)
[2019-02-04 03:17] LABS: AST 20 U/L (13-39)
[2019-02-04] MEDS ORDERED: Iodixanol* (CONTRAST) 320 MG/ML 100 ML SDV IV ONE (03:45)
[2019-02-04 04:30] LABS: Urine Appearance Clear; Urine Bilirubin Negative (Negative); Urine Blood 2+ (Negative); Urine Color Yellow; Urine Glucose 1+(50 mg/dL) (Negative); Urine Ketones Negative (Negative); Urine Nitrite Negative (Negative); Urine Protein Negative (Negative); Urine Specific Gravity 1.017 (1.010-1.030); Urine Urobilinogen Negative (Negative)
[2019-02-04 04:31] LABS: Urine Bacteria Absent (Absent); Urine Red Blood Cell Trace(0-2/hpf) (Absent); Urine Squamous Epithelial Cell Present (Absent); Urine White Blood Cell 1+(6-10/hpf) (Absent)
[2019-02-04] MEDS ORDERED: LORazepam INJ* 2 MG/ML 1 ML VIAL IV PUSH ONE (05:33)
[2019-02-04] MEDS ORDERED: Lorazepam PYXIS KEY PRN (05:33)
[2019-02-04] MEDS ORDERED: Lorazepam PYXIS KEY ONE (05:35)
[2019-02-04 07:20] VITALS: BP 142/96
== END 2019-02-04 07:00 | disposition home or self-care (01) ==
LOC: ED 02:00
DX: R10.84 Generalized abdominal pain (principal); R11.2 Nausea with vomiting, unspecified; K92.1 Melena; E11.9 Type 2 diabetes mellitus without complications; Z79.4 Long term (current) use of insulin; E78.00 Pure hypercholesterolemia, unspecified; I10 Essential (primary) hypertension; J44.9 Chronic obstructive pulmonary disease, unspecified; K21.9 Gastro-esophageal reflux disease without esophagitis; Z21 Asymptomatic human immunodeficiency virus [HIV] infection status; Z87.891 Personal history of nicotine dependence
CPT/HCPCS: 36415; 74177; 80053; 81003; 81015; 83605; 83690; 85025; 85610; 86140; 87086; 96361; 96374; 96375; 96376; 99283; J2060; J2405; J3010; Q9967

== ENCOUNTER 2019-05-14 03:35 | Emergency (ER) | payer MEDICARE, MEDICAID ==
--- OUTSIDE RECORDS SUMMARY | 2019-05-14 03:50 | XMS REPORT ---
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 Clinician (SIG) Name Name No Known No Known No None None None Medications Medications For This For This Patient Patient Procedures This patient has no known procedures. Results This patient has no known results.
--- OUTSIDE RECORDS SUMMARY | 2019-05-14 03:50 | XMS REPORT ---
:1945 Author Organization [facility] Care Team Providers Name Role Phone Unavailable Unavailable Unavailable Problems This patient has no known problems. Allergies, Adverse Reactions, Alerts Allergy Allergy Status Severity Reaction(s) Onset Inactive Treating Comments Name Type Date Date Clinician Unknown None Active Unknown None Unknown No Known Allergies For This Patient Medications Ordered Filled Start Stop Current Ordering Indication Dosage Frequency Signature Comments Components Medication Medication Date Date Medication? Clinician (SIG) Name Name No Known No Known No None None None Medications Medications For This For This Patient Patient Procedures This patient has no known procedures. Results This patient has no known results.
[2019-05-14] MEDS ORDERED: NS 0.9% 1000 ML** 1,000 ML IV ONE (04:42)
[2019-05-14] MEDS ORDERED: Ondansetron INJ* 2 MG/ML VIAL IV ONE (04:43)
[2019-05-14] MEDS ORDERED: Pantoprazole IV* 40 MG IV ONE (04:43)
--- NOTE | 2019-05-14 05:46 | ED ---
GI/ HPI - HPI Summary HPI Summary: Patient is a 73 year-old female arriving via ambulance to [facility] with a chief complaint of nausea and vomiting for a day. She denies any abdominal pain or diarrhea. States "I don't know" when asked if she had a fever. She has not taken any medications for her symptoms. Pain rated /10 in severity. No recent medication changes. Past medical history includes diabetes with neuropathy, hypercholesterolemia, hypertension, COPD, depression, schizophrenia, substance abuse, HIV, hepatitis C, MRSA. LEVEL 5 CAVEAT. Patient is a poor historian, refuses to answer questions. - History of Current Complaint Chief Complaint: EDNauseaVomitDiarrh Time Seen by Provider: 05/14/19 04:39 Stated Complaint: NAUSEA PER EMS Hx Obtained From: Patient Hx From Patient Unobtainable Due To: Other - level 5 caveat, poor historian and refuses to answer questions Onset/Duration: Started Hours Ago, Still Present Current Severity: Severe Pain Intensity: 0 Associated Signs and Symptoms: Positive: Nausea, Vomiting. Negative: Diarrhea, Abdominal Pain - Additional Pertinent History Primary Care Physician: TATI - Allergy/Home Medications Allergies/Adverse Reactions: Allergies Allergy/AdvReac Type Severity Reaction Status Date / Time No Known Allergies Allergy Verified 05/15/19 12:38 Home Medications: Home Medications Chlorthalidone TAB* [Hygroton TAB*] 50 mg PO QAM 02/07/13 [History Confirmed ] Lisinopril TAB* [Prinivil TAB 10 MG*] 40 mg PO DAILY 02/07/13 [History Confirmed 12/23/17] Simvastatin TAB(NF) [Zocor 20 MG (NF)] 20 mg PO QAM 02/07/13 [History Confirmed 12/23/17] Exenatide Microspheres [Bydureon Pen] 2 mg SUBCUT WEEKLY 06/18/15 [History Confirmed 12/24/17] ValACYclovir (*) [Valtrex 1 GM(*)] 1 gm PO QAM 06/18/15 [History Confirmed 12/23] Diclofenac 1% GEL (NF) [Voltaren 1% GEL (NF)] 2 grams TOPICAL QID PRN 07/31/15 [ History Confirmed 12/24/17] Insulin GLARGINE(*) [Lantus 100 units/ml 10 ml VIAL (*)] 60 units SUBCUT BID [History Confirmed 12/23/17] Abacavir/Dolutegravir/Lamivudi [Triumeq Tablet (Nf)] 1 tab PO DAILY 04/27/17 [ History Confirmed 12/24/17] Albuterol HFA INHALER* [Ventolin HFA Inhaler*] 2 puff INH Q4H PRN 04/27/17 [ History Confirmed 12/24/17] Cyclosporine 0.05% OPHTH (NF) [Restasis 0.05% OPHTH] 0.05 % OP Q12H 04/27/17 [ History Confirmed 12/24/17] Famotidine TAB* [Pepcid 20 MG TAB*] 20 mg PO DAILY 04/27/17 [History Confirmed 12/23/17] Insulin NPH Human Isophane [Humulin N Kwikpen 100 units/ml 3 ml x 5 Pens] 15 units IM BID AC 04/27/17 [History Confirmed 12/24/17] QUEtiapine TAB* [Seroquel 25 MG TAB*] 25 mg PO DAILY 04/27/17 [History Confirmed 12/23/17] Dicyclomine CAP* [Bentyl CAP*] 20 mg PO BID 07/20/17 [History Confirmed 12/23/17 ] Ferrous Sulfate TAB* 325 mg PO DAILY #30 tab 12/25/17 [Rx] Potassium Chlor TAB* [Klor Con ER TAB 10 MEQ*] 10 meq PO DAILY #30 tab.er [Rx] Pregabalin 25 mg CAP (*) [Lyrica 25 mg CAP (*)] 25 mg PO DAILY #30 cap MDD 25mg 12/25/17 [Rx] ceFUROXime 250 MG TAB [Ceftin TAB 250 MG(*)] 250 mg PO BID 4 Days #8 tab [Rx] Ondansetron ODT TAB* [Zofran 4 MG Odt TAB*] 4 mg PO Q8H PRN #12 tab.odt [Rx] Ondansetron ODT TAB* [Zofran 4 MG Odt TAB*] 4 mg PO Q8H PRN #12 tab.odt [Rx] diPHENhydraMINE PO* [Benadryl PO 25 MG TAB*] 25 mg PO Q6H PRN #30 tab 05/14/19 [ Rx] PMH/Surg Hx/FS Hx/Imm Hx Endocrine/Hematology History: Reports: Hx Diabetes - insulin dependent diabetic , Other Endocrine/Hematological Disorders - HIV POSITIVE Denies: Hx Thyroid Disease Cardiovascular History: Reports: Hx Hypercholesterolemia, Hx Hypertension, Other Cardiovascular Problems/Disorders - hyperlipidemia Denies: Hx Pacemaker/ICD Respiratory History: Reports: Hx Chronic Bronchitis, Hx Chronic Obstructive Pulmonary Disease (COPD) Denies: Hx Asthma GI History: Reports: Hx Gastroesophageal Reflux Disease Denies: Hx Ulcer History: Reports: Hx Kidney Infection, Other Problems/Disorders - hemorrhoids, herpes simplex Denies: Hx Kidney Stones, Hx Renal Disease Musculoskeletal History: Reports: Hx Arthritis Sensory History: Reports: Hx Cataracts - left eye, Hx Contacts or Glasses - readers, Hx Eye Prosthesis - Rt, Hx Vision Problem - RIGHT EYE PROSTHETIC, Other Sensory Impairments - no contacts - wears eyeglasses Denies: Hx Glaucoma, Hx Hearing Aid Opthamlomology History: Reports: Hx Cataracts - left eye, Hx Contacts or Glasses - readers, Hx Eye Prosthesis - Rt, Hx Vision Problem - RIGHT EYE PROSTHETIC, Other Sensory Impairments - no contacts - wears eyeglasses Denies: Hx Glaucoma Neurological History: Reports: Hx Nerve Disease - neuropathy, Other Neuro Impairments/Disorders - schizophrenia Psychiatric History: Reports: Hx Depression, Hx Schizophrenia, Hx Substance Abuse Denies: Hx Panic Disorder - Cancer History Hx Chemotherapy: No Hx Radiation Therapy: No - Surgical History Surgical History: Yes Surgery Procedure, Year, and Place: right eye prosthetic - d/t trauma. right lower abdomen cyst removal Hx Anesthesia Reactions: No - Immunization History Date of Tetanus Vaccine: utd Date of Influenza Vaccine: 03/2017 Infectious Disease History: No Infectious Disease History: Reports: Hx Hepatitis - chronic HEP C, Hx Human Immunodeficiency Virus (HIV), Hx of Known/Suspected MRSA Denies: Traveled Outside the [place] in Last 30 Days - Family History Known Family History: Positive: Cardiac Disease, Hypertension - Social History Alcohol Amount: pt refuses to answer questions Hx Substance Use: Yes Substance Use Comment - Amount & Last Used: pt refuses to answer questions Hx Tobacco Use: Yes Smoking Status (MU): Unknown if Ever Smoked Type: Cigarettes Amount Used/How Often: 2 ppd for 20 yrs Have You Smoked in the Last Year: No - Additional Comments History Additional Comments: diabetes with neuropathy, hypercholesterolemia, hypertension, COPD, depression, schizophrenia, substance abuse, HIV, hepatitis C, MRSA Review of Systems - ROS Summary Review of Systems Summary: Home Medications Medication Instructions Recorded Confirmed Type Chlorthalidone TAB* [Hygroton TAB*] 50 mg PO QAM 02/07/13 12/23/17 History Lisinopril TAB* [Prinivil TAB 10 40 mg PO DAILY 02/07/13 12/23/17 History MG*] Simvastatin TAB(NF) [Zocor 20 MG 20 mg PO QAM 02/07/13 12/23/17 History (NF)] Exenatide Microspheres [Bydureon 2 mg SUBCUT WEEKLY 06/18/15 12/24/17 History Pen] ValACYclovir (*) [Valtrex 1 GM(*)] 1 gm PO QAM 06/18/15 12/23/17 History Diclofenac 1% GEL (NF) [Voltaren 2 grams TOPICAL QID PRN 07/31/15 12/24/17 History 1% GEL (NF)] Insulin GLARGINE(*) [Lantus 100 60 units SUBCUT BID 11/14/16 12/23/17 History units/ml 10 ml VIAL (*)] Abacavir/Dolutegravir/Lamivudi 1 tab PO DAILY 04/27/17 12/24/17 History [Triumeq Tablet (Nf)] Albuterol HFA INHALER* [Ventolin 2 puff INH Q4H PRN 04/27/17 12/24/17 History HFA Inhaler*] Cyclosporine 0.05% OPHTH (NF) 0.05 % OP Q12H 04/27/17 12/24/17 History [Restasis 0.05% OPHTH] Famotidine TAB* [Pepcid 20 MG TAB*] 20 mg PO DAILY 04/27/17 12/23/17 History Insulin NPH Human Isophane 15 units IM BID AC 04/27/17 12/24/17 History [Humulin N Kwikpen 100 units/ml 3 ml x 5 Pens] QUEtiapine TAB* [Seroquel 25 MG 25 mg PO DAILY 04/27/17 12/23/17 History TAB*] Dicyclomine CAP* [Bentyl CAP*] 20 mg PO BID 07/20/17 12/23/17 History Ferrous Sulfate TAB* 325 mg PO DAILY #30 tab 12/25/17 Rx Potassium Chlor TAB* [Klor Con ER 10 meq PO DAILY #30 tab.er 12/25/17 Rx TAB 10 MEQ*] Pregabalin 25 mg CAP (*) [Lyrica 25 mg PO DAILY #30 cap MDD 25mg 12/25/17 Rx 25 mg CAP (*)] ceFUROXime 250 MG TAB [Ceftin TAB 250 mg PO BID 4 Days #8 tab 12/25/17 Rx 250 MG(*)] Ondansetron ODT TAB* [Zofran 4 MG 4 mg PO Q8H PRN #12 tab.odt 02/04/19 Rx Odt TAB*] Constitutional: Other - unsure if fever Positive: Vomiting, Nausea. Negative: Abdominal Pain, Diarrhea All Other Systems Reviewed And Are Negative: No - Comments Additional Review of Systems Comments: LEVEL 5 CAVEAT, patient is poor historian and refuses to answer questions Physical Exam - Summary Physical Exam Summary: General: Well-developed, Morbidly obese female, Holding upper abdomen and moaning. Appears to be in moderate discomfort, She is moderately agitated and uncooperative. She is a poor historian. HEENT: Normocephalic, Atraumatic. Eyes: Conjuctiva normal, PERRL. Oropharynx: Clear, mucous membranes moist, (-) exudates. Neck: Soft, FROM, (-) lymphadenopathy, (-) thyromegaly, (-) JVD. Cardiovascular: Normal sinus rhythm, (-) murmur. Lungs: Clear to auscultation bilaterally (-) wheezes, (-) rales, (-) rhonchi. Abdomen: Soft, non-tender, non-distended, (-) organomegaly, normal bowel sounds. Back: (-) CVA tenderness Extremities: 1+ pitting edema. Skin: Warm, dry, (-) rash. Neuro: Alert and oriented x3, moves all extremities equally. No ataxia. No gait disturbance. No sensory deficit. Normal strength, normal sensation. Psychiatric: Affect odd, agitated. Triage Information Reviewed: Yes Vital Signs On Initial Exam: Initial Vitals Temp Pulse Resp BP Pulse Ox 97.1 F 98 22 179/96 96 05/14/19 03:44 05/14/19 03:44 05/14/19 03:44 05/14/19 03:44 05/14/19 03:44 Vital Signs Reviewed: Yes Completion Of Physical Exam Limited Due To: Level 5 - patient is poor historian and refuses to answer questions Procedures - Sedation Patient Received Moderate/Deep Sedation with Procedure: No Diagnostics - Vital Signs Vital Signs Temp Pulse Resp BP Pulse Ox 05/14/19 03:44 97.1 F 98 22 179/96 96 - Laboratory Result Diagrams: 05/14/19 05:45 05/14/19 05:45 Lab Statement: Any lab studies that have been ordered have been reviewed, and results considered in the medical decision making process. Re-Evaluation - Re-Evaluation First Eval Re-Evaluation Time: 06:35 Change: Unchanged Comment: Patient still havign symptoms. Reglan and Benadryl ordered. GIGU Course/Dx - Course Course Of Treatment: 73-year-old female presenting by ambulance with severe abdominal pain. Patient is a very poor historian. Frequently refusing to answer questions. Calling names. Swearing at people. She does have a history of multiple ER visits for nausea. She denies any abdominal pain. She is afebrile. Unclear if she has been vomiting. On physical exam she has no significant tenderness on exam. Odd affect. Moderately agitated. Patient given IV fluids. Protonix and Zofran. Patient complained she had received no relief she was then given Reglan and Benadryl. Patient has had multiple CTs of the abdomen done. Awaiting a UA at this time. Sign changes shift awaiting reevaluation and disposition. - Diagnoses Provider Diagnoses: Nausea, Vomiting Discharge ED - Sign-Out/Discharge Documenting (check all that apply): Sign-Out Patient Signing out patient TO: Jorge Caldwell - Patient is a sign-out to Dr. Jorge Caldwell MD, at change of shift at 0700 on 05/14/19, pending urinalysis, re- evaluation for possible imaging, and disposition. - Discharge Plan Condition: Stable Disposition: HOME Prescriptions: diPHENhydraMINE PO* [Benadryl PO 25 MG TAB*] 25 mg PO Q6H PRN #30 tab PRN Reason: Itching Ondansetron ODT TAB* [Zofran 4 MG Odt TAB*] 4 mg PO Q8H PRN #12 tab.odt PRN Reason: Vomiting Patient Education Materials: Acute Nausea and Vomiting (ED) Referrals: Fan Parsons MD [Primary Care Provider] - Additional Instructions: Return to ED if experiencing severe abdominal pain, if you cannot tolerate fluids for 12 hours. Stay hydrated with Gatorade. Follow up with your primary care provider in 1-3 days. - Billing Disposition and Condition Condition: STABLE Disposition: Home - Attestation Statements Document Initiated by Gaston: Yes Documenting Scribe: Pamela Christiansen Provider For Whom Gaston is Documenting (Include Credential): Edie Cuenca MD Scribe Attestation: Pamela Hastings, scribed for Edie Cuenca MD on 05/16/19 at 0238. Scribe Documentation Reviewed: Yes Provider Attestation: The documentation as recorded by the Pamela quinonez accurately reflects the service I personally performed and the decisions made by me, Edie Cuenca MD Status of Scribe Document: Viewed
[2019-05-14 06:03] LABS: INR 1.08 (0.82-1.09)
[2019-05-14 06:07] LABS: ABS Basophils 0.1 10^3/ul (0-0.2); ABS Lymphocytes 1.5 10^3/ul (1.0-4.8); ABS Monocytes 0.4 10^3/ul (0-0.8); ABS Neutrophils 9.8 10^3/ul (1.5-7.7); Eosinophil % 0.3 %; Hematocrit 34 % (35-47); Hemoglobin 10.8 g/dL (12.0-16.0); Lymphocyte % 12.7 %; Mean Corpuscular HGB Conc 32 g/dL (31-36); Mean Corpuscular Hemoglobin 24 pg (27-31); Mean Corpuscular Volume 74 fL (80-97); Mean Platelet Volume 7.7 fL (7.4-10.4); Platelet Count 343 10^3/uL (150-450); Red Blood Count 4.57 10^6 /uL (3.70-4.87); Red Cell Distribution Width 17 % (10-15); White Blood Count 11.9 10^3/uL (3.5-10.8)
[2019-05-14 06:16] LABS: Albumin 4.2 g/dL (3.2-5.2); Albumin/Globulin Ratio 1.1 (1-3); BUN/Creatinine Ratio 10.2 (8-20); C Reactive Protein 9.55 mg/L (<8.01); Calcium 10.1 mg/dL (8.6-10.3); EGFR African American 60.3 (>60); EGFR Non-African American 49.9 (>60); Globulin 3.9 g/dL (2-4); Potassium 3.6 mmol/L (3.5-5.0); Total Bilirubin 0.7 mg/dL (0.2-1.0); Total Protein 8.1 g/dL (6.4-8.9)
[2019-05-14] MEDS ORDERED: Metoclopramide IV* 5 MG/ML 2 ML VIAL IV SLOW PU ONE (06:34)
[2019-05-14 06:35] LABS: Polychromasia 1+
[2019-05-14] MEDS ORDERED: diPHENhydraMINE IV* 50 MG/ML 1 ml VIAL (BENADRYL) IV ONE (06:35)
[2019-05-14 06:56] LABS: Urine Appearance Clear; Urine Bilirubin Negative (Negative); Urine Blood Negative (Negative); Urine Color Yellow; Urine Glucose 3+(>=500 mg/dL) (Negative); Urine Ketones Trace (Negative); Urine Nitrite Negative (Negative); Urine Protein 3+(>=500 mg/dL) (Negative); Urine Specific Gravity 1.009 (1.010-1.030); Urine Urobilinogen Negative (Negative)
[2019-05-14 06:58] LABS: Urine Bacteria Absent (Absent); Urine Red Blood Cell Absent (Absent); Urine Squamous Epithelial Cell Present (Absent); Urine White Blood Cell Absent (Absent)
--- NOTE | 2019-05-14 07:15 | ED ---
Progress - Progress Note Progress Note: Receiving sign-out from Dr. Cuenca pending urinalysis. Urinalysis was not remarkable for UTI. Patient is tolerating PO and wants to go home. Plan for discharge was discussed with the patient and she understands and agrees with this plan. Re-Evaluation - Re-Evaluation First Eval Re-Evaluation Time: 06:35 Course/Dx - Course Course Of Treatment: Receiving sign-out from Dr. Cuenca pending urinalysis. Urinalysis was not remarkable for UTI. Patient is tolerating PO and wants to go home. Discharged on Zofran and Benadryl. Plan for discharge was discussed with the patient and she understands and agrees with this plan. - Diagnoses Provider Diagnoses: Nausea, Vomiting Discharge ED - Sign-Out/Discharge Documenting (check all that apply): Patient Departure - Discharge, Receiving Sign-Out Receiving patient FROM: Edie Cuenca - Discharge Plan Condition: Stable Disposition: HOME Prescriptions: diPHENhydraMINE PO* [Benadryl PO 25 MG TAB*] 25 mg PO Q6H PRN #30 tab PRN Reason: Itching Ondansetron ODT TAB* [Zofran 4 MG Odt TAB*] 4 mg PO Q8H PRN #12 tab.odt PRN Reason: Vomiting Patient Education Materials: Acute Nausea and Vomiting (ED) Referrals: Fan Parsons MD [Primary Care Provider] - Additional Instructions: Return to ED if experiencing severe abdominal pain, if you cannot tolerate fluids for 12 hours. Stay hydrated with Gatorade. Follow up with your primary care provider in 1-3 days. - Billing Disposition and Condition Condition: STABLE Disposition: Home - Attestation Statements Document Initiated by Gaston: Yes Documenting Scribe: Paulie Mehta Provider For Whom Gaston is Documenting (Include Credential): Jorge Caldwell MD Scribe Attestation: Paulie Hastings, scribed for Jorge Caldwell MD on 05/15/19 at 1039. Scribe Documentation Reviewed: Yes Provider Attestation: The documentation as recorded by the Paulie quinonez accurately reflects the service I personally performed and the decisions made by me, Jorge Caldwell MD Status of Scribe Document: Viewed
[2019-05-14 07:25] LABS: Urine Benzodiazepine Screen None Detected (None Detect); Urine Opiates Screen None Detected (None Detect)
[2019-05-14 07:33] VITALS: BP 166/115
== END 2019-05-14 07:32 | disposition home or self-care (01) ==
LOC: ED 03:35
DX: R11.2 Nausea with vomiting, unspecified (principal); E11.9 Type 2 diabetes mellitus without complications; Z79.4 Long term (current) use of insulin; Z21 Asymptomatic human immunodeficiency virus [HIV] infection status; E78.00 Pure hypercholesterolemia, unspecified; I10 Essential (primary) hypertension; E78.5 Hyperlipidemia, unspecified; K21.9 Gastro-esophageal reflux disease without esophagitis; K73.9 Chronic hepatitis, unspecified; F32.9 Major depressive disorder, single episode, unspecified; F20.9 Schizophrenia, unspecified; F19.10 Other psychoactive substance abuse, uncomplicated; Z86.14 Personal history of Methicillin resistant Staphylococcus aureus infection; Z79.899 Other long term (current) drug therapy
CPT/HCPCS: 36415; 80053; 80307; 81003; 81015; 83605; 83690; 85025; 85610; 86140; 96374; 96375; 99283; G0480; J1200; J2405; J2765

== ENCOUNTER 2019-05-14 13:25 | Emergency (ER) | payer MEDICARE, MEDICAID ==
[2019-05-14] MEDS ORDERED: Ondansetron ODT TAB* 4 MG PO ONE (13:36)
--- NOTE | 2019-05-14 13:42 | ED ---
GI/ HPI - HPI Summary HPI Summary: 73 year old female presents to the ED with chief complaints of nausea and vomiting for 2 days. Patient presented to [facility] earlier this morning at 0430 with the same symptoms and was discharged with medication. Patient claims that she was not given medication and that her symptoms persist. Patient smokes tobacco. She has a PMHx of HTN and DM. - History of Current Complaint Chief Complaint: EDAbdPain Time Seen by Provider: 05/14/19 13:28 Stated Complaint: GENERAL ILLNESS PER EMS Hx Obtained From: Patient Onset/Duration: Started Days Ago, Still Present Timing: Constant Severity: Mild Current Severity: Mild Pain Intensity: 0 Associated Signs and Symptoms: Positive: Nausea, Vomiting - Additional Pertinent History Primary Care Physician: TATI - Allergy/Home Medications Allergies/Adverse Reactions: Allergies Allergy/AdvReac Type Severity Reaction Status Date / Time No Known Allergies Allergy Verified 05/14/19 03:46 Home Medications: Home Medications Chlorthalidone TAB* [Hygroton TAB*] 50 mg PO QAM 02/07/13 [History Confirmed ] Lisinopril TAB* [Prinivil TAB 10 MG*] 40 mg PO DAILY 02/07/13 [History Confirmed 12/23/17] Simvastatin TAB(NF) [Zocor 20 MG (NF)] 20 mg PO QAM 02/07/13 [History Confirmed 12/23/17] Exenatide Microspheres [Bydureon Pen] 2 mg SUBCUT WEEKLY 06/18/15 [History Confirmed 12/24/17] ValACYclovir (*) [Valtrex 1 GM(*)] 1 gm PO QAM 06/18/15 [History Confirmed 12/23] Diclofenac 1% GEL (NF) [Voltaren 1% GEL (NF)] 2 grams TOPICAL QID PRN 07/31/15 [ History Confirmed 12/24/17] Insulin GLARGINE(*) [Lantus 100 units/ml 10 ml VIAL (*)] 60 units SUBCUT BID [History Confirmed 12/23/17] Abacavir/Dolutegravir/Lamivudi [Triumeq Tablet (Nf)] 1 tab PO DAILY 04/27/17 [ History Confirmed 12/24/17] Albuterol HFA INHALER* [Ventolin HFA Inhaler*] 2 puff INH Q4H PRN 04/27/17 [ History Confirmed 12/24/17] Cyclosporine 0.05% OPHTH (NF) [Restasis 0.05% OPHTH] 0.05 % OP Q12H 04/27/17 [ History Confirmed 12/24/17] Famotidine TAB* [Pepcid 20 MG TAB*] 20 mg PO DAILY 04/27/17 [History Confirmed 12/23/17] Insulin NPH Human Isophane [Humulin N Kwikpen 100 units/ml 3 ml x 5 Pens] 15 units IM BID AC 04/27/17 [History Confirmed 12/24/17] QUEtiapine TAB* [Seroquel 25 MG TAB*] 25 mg PO DAILY 04/27/17 [History Confirmed 12/23/17] Dicyclomine CAP* [Bentyl CAP*] 20 mg PO BID 07/20/17 [History Confirmed 12/23/17 ] Ferrous Sulfate TAB* 325 mg PO DAILY #30 tab 12/25/17 [Rx] Potassium Chlor TAB* [Klor Con ER TAB 10 MEQ*] 10 meq PO DAILY #30 tab.er [Rx] Pregabalin 25 mg CAP (*) [Lyrica 25 mg CAP (*)] 25 mg PO DAILY #30 cap MDD 25mg 12/25/17 [Rx] ceFUROXime 250 MG TAB [Ceftin TAB 250 MG(*)] 250 mg PO BID 4 Days #8 tab [Rx] Ondansetron ODT TAB* [Zofran 4 MG Odt TAB*] 4 mg PO Q8H PRN #12 tab.odt [Rx] Ondansetron ODT TAB* [Zofran 4 MG Odt TAB*] 4 mg PO Q8H PRN #12 tab.odt [Rx] diPHENhydraMINE PO* [Benadryl PO 25 MG TAB*] 25 mg PO Q6H PRN #30 tab 05/14/19 [ Rx] PMH/Surg Hx/FS Hx/Imm Hx Endocrine/Hematology History: Reports: Hx Diabetes - insulin dependent diabetic , Other Endocrine/Hematological Disorders - HIV POSITIVE Denies: Hx Thyroid Disease Cardiovascular History: Reports: Hx Hypercholesterolemia, Hx Hypertension, Other Cardiovascular Problems/Disorders - hyperlipidemia Denies: Hx Pacemaker/ICD Respiratory History: Reports: Hx Chronic Bronchitis, Hx Chronic Obstructive Pulmonary Disease (COPD) Denies: Hx Asthma GI History: Reports: Hx Gastroesophageal Reflux Disease Denies: Hx Ulcer History: Reports: Hx Kidney Infection, Other Problems/Disorders - hemorrhoids, herpes simplex Denies: Hx Kidney Stones, Hx Renal Disease Musculoskeletal History: Reports: Hx Arthritis Sensory History: Reports: Hx Cataracts - left eye, Hx Contacts or Glasses - readers, Hx Eye Prosthesis - Rt, Hx Vision Problem - RIGHT EYE PROSTHETIC, Other Sensory Impairments - no contacts - wears eyeglasses Denies: Hx Glaucoma, Hx Hearing Aid Opthamlomology History: Reports: Hx Cataracts - left eye, Hx Contacts or Glasses - readers, Hx Eye Prosthesis - Rt, Hx Vision Problem - RIGHT EYE PROSTHETIC, Other Sensory Impairments - no contacts - wears eyeglasses Denies: Hx Glaucoma Neurological History: Reports: Hx Nerve Disease - neuropathy, Other Neuro Impairments/Disorders - schizophrenia Psychiatric History: Reports: Hx Depression, Hx Schizophrenia, Hx Substance Abuse Denies: Hx Panic Disorder - Cancer History Hx Chemotherapy: No Hx Radiation Therapy: No - Surgical History Surgery Procedure, Year, and Place: right eye prosthetic - d/t trauma. right lower abdomen cyst removal Hx Anesthesia Reactions: No - Immunization History Date of Tetanus Vaccine: utd Date of Influenza Vaccine: 03/2017 Infectious Disease History: Yes Infectious Disease History: Reports: Hx Hepatitis - chronic HEP C, Hx Human Immunodeficiency Virus (HIV), Hx of Known/Suspected MRSA Denies: Traveled Outside the [place] in Last 30 Days - Family History Known Family History: Positive: Cardiac Disease, Hypertension - Social History Alcohol Use: None Alcohol Amount: pt refuses to answer questions Hx Substance Use: Yes Substance Use Type: Reports: None Substance Use Comment - Amount & Last Used: pt refuses to answer questions Hx Tobacco Use: Yes Smoking Status (MU): Unknown if Ever Smoked Type: Cigarettes Amount Used/How Often: 2 ppd for 20 yrs Have You Smoked in the Last Year: No Review of Systems Negative: Fever Positive: Vomiting, Nausea All Other Systems Reviewed And Are Negative: Yes Physical Exam - Summary Physical Exam Summary: Appearance: The patient is well-nourished in no acute distress and in no acute pain. Skin: The skin is warm and dry, and skin color reflects adequate perfusion. HEENT: The head is normocephalic and atraumatic. The pupils are equal and reactive. The conjunctivae are clear and without drainage. Nares are patent and without drainage. Mouth reveals moist mucous membranes, and the throat is without erythema and exudate. The external ears are intact. The ear canals are patent and without drainage. The tympanic membranes are intact. Neck: The neck is supple with full range of motion and non-tender. There are no carotid bruits. There is no neck vein distension. Respiratory: Chest is non-tender. Lungs are clear to auscultation and breath sounds are symmetrical and equal. Cardiovascular: Heart is regular rate and rhythm. There is no murmur or rub auscultated. There is no peripheral edema and pulses are symmetrical and equal. Abdomen: The abdomen is soft and non-tender. There are normal bowel sounds heard in all four quadrants and there is no organomegaly palpated. Musculoskeletal: There is no back tenderness noted. Extremities are non-tender with full range of motion. There is good capillary refill. There is no peripheral edema or calf tenderness elicited. Neurological: Patient is alert and oriented to person, place and time. The patient has symmetrical motor strength in all four extremities. Cranial nerves are grossly intact. Deep tendon reflexes are symmetrical and equal in all four extremities. Psychiatric: The patient has an appropriate affect and does not exhibit any anxiety or depression. Triage Information Reviewed: Yes Vital Signs On Initial Exam: Initial Vitals Temp Pulse Resp BP Pulse Ox 97.8 F 108 16 179/124 100 05/14/19 13:30 05/14/19 13:30 05/14/19 13:30 05/14/19 13:30 05/14/19 13:30 Vital Signs Reviewed: Yes Procedures - Sedation Patient Received Moderate/Deep Sedation with Procedure: No Diagnostics - Vital Signs Vital Signs Temp Pulse Resp BP Pulse Ox 05/14/19 13:30 97.8 F 108 16 179/124 100 - Laboratory Result Diagrams: 05/14/19 15:20 05/14/19 15:20 Lab Statement: Any lab studies that have been ordered have been reviewed, and results considered in the medical decision making process. GIGU Course/Dx - Course Course Of Treatment: Ms. Maria returned a couple hours after discharge with return of her nausea. She did not fill the prescription so we initially tried to give her by mouth Zofran. She stated that it made her feel worse and therefore she was given IV fluids and IV Zofran. She got complete relief of her symptoms with that. Her white blood cell count was still slightly elevated and was slightly higher than last evening. She was nontoxic in appearance with stable vitals and was discharged to fill the prescription for sublingual Zofran - Diagnoses Provider Diagnoses: Nausea Discharge ED - Sign-Out/Discharge Documenting (check all that apply): Patient Departure - discharge home - Discharge Plan Condition: Stable Disposition: HOME Patient Education Materials: Acute Nausea and Vomiting (ED) Referrals: Fan Parsons MD [Primary Care Provider] - Additional Instructions: Follow up with your primary care provider in 2-3 days. Return to the ED if you experience new or worsened symptoms. - Billing Disposition and Condition Condition: STABLE Disposition: Home - Attestation Statements Document Initiated by Gaston: Yes Documenting Scribe: Chaim Uriarte Provider For Whom Gaston is Documenting (Include Credential): Dr. Gopi Russell Scribe Attestation: Chaim Hastings, scribed for Dr. Gopi Russell on 05/14/19 at 2102. Scribe Documentation Reviewed: Yes Provider Attestation: The documentation as recorded by the Chaim quinonez accurately reflects the service I personally performed and the decisions made by me, Dr. Gopi Russell Status of Scribe Document: Viewed
[2019-05-14] MEDS ORDERED: NS 0.9% 1000 ML** 1,000 ML IV ONE (15:06)
[2019-05-14] MEDS ORDERED: Ondansetron INJ* 2 MG/ML VIAL IV ONE (15:06)
[2019-05-14 15:48] LABS: Hematocrit 34 % (35-47); Hemoglobin 10.6 g/dL (12.0-16.0); Mean Corpuscular HGB Conc 31 g/dL (31-36); Mean Corpuscular Hemoglobin 23 pg (27-31); Mean Corpuscular Volume 74 fL (80-97); Mean Platelet Volume 7.4 fL (7.4-10.4); Platelet Count 328 10^3/uL (150-450); Red Blood Count 4.56 10^6 /uL (3.70-4.87); Red Cell Distribution Width 17 % (10-15); White Blood Count 15.3 10^3/uL (3.5-10.8)
[2019-05-14 16:00] LABS: Albumin 3.9 g/dL (3.2-5.2); Albumin/Globulin Ratio 1.2 (1-3); BUN/Creatinine Ratio 14.3 (8-20); C Reactive Protein 7.44 mg/L (<8.01); Calcium 9.5 mg/dL (8.6-10.3); EGFR African American 57.9 (>60); EGFR Non-African American 47.8 (>60); Globulin 3.3 g/dL (2-4); Potassium 3.8 mmol/L (3.5-5.0); Total Bilirubin 0.6 mg/dL (0.2-1.0); Total Protein 7.2 g/dL (6.4-8.9)
[2019-05-14 16:33] LABS: ABS Basophils 0.1 10^3/ul (0-0.2); ABS Lymphocytes 2.4 10^3/ul (1.0-4.8); ABS Monocytes 1.4 10^3/ul (0-0.8); ABS Neutrophils 11.4 10^3/ul (1.5-7.7); Eosinophil % 0.3 %; Nucleated Red Blood Cells % 0.1
[2019-05-14 18:24] VITALS: BP 121/77
== END 2019-05-14 18:23 | disposition home or self-care (01) ==
LOC: ED 13:25
DX: R11.2 Nausea with vomiting, unspecified (principal); E11.9 Type 2 diabetes mellitus without complications; I10 Essential (primary) hypertension; Z21 Asymptomatic human immunodeficiency virus [HIV] infection status; E78.00 Pure hypercholesterolemia, unspecified; E78.5 Hyperlipidemia, unspecified; F32.9 Major depressive disorder, single episode, unspecified; K21.9 Gastro-esophageal reflux disease without esophagitis; K73.8 Other chronic hepatitis, not elsewhere classified; Z79.4 Long term (current) use of insulin; Z79.899 Other long term (current) drug therapy
CPT/HCPCS: 36415; 80053; 83605; 85025; 86140; 96361; 96374; 99283; A9270-GY; J2405

== ENCOUNTER 2019-05-15 12:34 | Emergency (ER) | payer MEDICARE, MEDICAID ==
[2019-05-15] MEDS ORDERED: Haloperidol INJ IV/IM* 5 MG/ML AMP IV SLOW PU ONE (12:53)
[2019-05-15] MEDS ORDERED: NS 0.9% 1000 ML** 1,000 ML IV ONE (12:53)
--- NOTE | 2019-05-15 12:58 | ED ---
GI/ HPI - HPI Summary HPI Summary: 73 y/o female presented to [facility] complaining of vomiting present for days. Pt endorses nonproductive cough with phlegm still present in her throat. Pt denies abd pain, diarrhea, constipation, and sore throat. Pt notes hx of HIV and diabetes. Medications reviewed. Allergies noted. Home Medications Medication Instructions Recorded Confirmed Type Chlorthalidone TAB* [Hygroton TAB*] 50 mg PO QAM 02/07/13 12/23/17 History Lisinopril TAB* [Prinivil TAB 10 40 mg PO DAILY 02/07/13 12/23/17 History MG*] Simvastatin TAB(NF) [Zocor 20 MG 20 mg PO QAM 02/07/13 12/23/17 History (NF)] Exenatide Microspheres [Bydureon 2 mg SUBCUT WEEKLY 06/18/15 12/24/17 History Pen] ValACYclovir (*) [Valtrex 1 GM(*)] 1 gm PO QAM 06/18/15 12/23/17 History Diclofenac 1% GEL (NF) [Voltaren 2 grams TOPICAL QID PRN 07/31/15 12/24/17 History 1% GEL (NF)] Insulin GLARGINE(*) [Lantus 100 60 units SUBCUT BID 11/14/16 12/23/17 History units/ml 10 ml VIAL (*)] Abacavir/Dolutegravir/Lamivudi 1 tab PO DAILY 04/27/17 12/24/17 History [Triumeq Tablet (Nf)] Albuterol HFA INHALER* [Ventolin 2 puff INH Q4H PRN 04/27/17 12/24/17 History HFA Inhaler*] Cyclosporine 0.05% OPHTH (NF) 0.05 % OP Q12H 04/27/17 12/24/17 History [Restasis 0.05% OPHTH] Famotidine TAB* [Pepcid 20 MG TAB*] 20 mg PO DAILY 04/27/17 12/23/17 History Insulin NPH Human Isophane 15 units IM BID AC 04/27/17 12/24/17 History [Humulin N Kwikpen 100 units/ml 3 ml x 5 Pens] QUEtiapine TAB* [Seroquel 25 MG 25 mg PO DAILY 04/27/17 12/23/17 History TAB*] Dicyclomine CAP* [Bentyl CAP*] 20 mg PO BID 07/20/17 12/23/17 History Ferrous Sulfate TAB* 325 mg PO DAILY #30 tab 12/25/17 Rx Potassium Chlor TAB* [Klor Con ER 10 meq PO DAILY #30 tab.er 12/25/17 Rx TAB 10 MEQ*] Pregabalin 25 mg CAP (*) [Lyrica 25 mg PO DAILY #30 cap MDD 25mg 12/25/17 Rx 25 mg CAP (*)] ceFUROXime 250 MG TAB [Ceftin TAB 250 mg PO BID 4 Days #8 tab 12/25/17 Rx 250 MG(*)] Ondansetron ODT TAB* [Zofran 4 MG 4 mg PO Q8H PRN #12 tab.odt 02/04/19 Rx Odt TAB*] Ondansetron ODT TAB* [Zofran 4 MG 4 mg PO Q8H PRN #12 tab.odt 05/14/19 Rx Odt TAB*] diPHENhydraMINE PO* [Benadryl PO 25 mg PO Q6H PRN #30 tab 05/14/19 Rx 25 MG TAB*] - History of Current Complaint Chief Complaint: EDNauseaVomitDiarrh Time Seen by Provider: 05/15/19 12:40 Stated Complaint: NAUSEA PER EMS Hx Obtained From: Patient Onset/Duration: Started Days Ago, Still Present Timing: Lasting Days Current Severity: None Pain Intensity: 0 Location of Pain: None Associated Signs and Symptoms: Positive: Vomiting, Cough, Other: - positive phlegm in throat; negative sore throat. Negative: Constipation, Diarrhea, Abdominal Pain - Additional Pertinent History Primary Care Physician: [id number] - Allergy/Home Medications Allergies/Adverse Reactions: Allergies Allergy/AdvReac Type Severity Reaction Status Date / Time No Known Allergies Allergy Verified 05/15/19 12:38 Home Medications: Home Medications Chlorthalidone TAB* [Hygroton TAB*] 50 mg PO QAM 02/07/13 [History Confirmed ] Lisinopril TAB* [Prinivil TAB 10 MG*] 40 mg PO DAILY 02/07/13 [History Confirmed 12/23/17] Simvastatin TAB(NF) [Zocor 20 MG (NF)] 20 mg PO QAM 02/07/13 [History Confirmed 12/23/17] Exenatide Microspheres [Bydureon Pen] 2 mg SUBCUT WEEKLY 06/18/15 [History Confirmed 12/24/17] ValACYclovir (*) [Valtrex 1 GM(*)] 1 gm PO QAM 06/18/15 [History Confirmed 12/23] Diclofenac 1% GEL (NF) [Voltaren 1% GEL (NF)] 2 grams TOPICAL QID PRN 07/31/15 [ History Confirmed 12/24/17] Insulin GLARGINE(*) [Lantus 100 units/ml 10 ml VIAL (*)] 60 units SUBCUT BID [History Confirmed 12/23/17] Abacavir/Dolutegravir/Lamivudi [Triumeq Tablet (Nf)] 1 tab PO DAILY 04/27/17 [ History Confirmed 12/24/17] Albuterol HFA INHALER* [Ventolin HFA Inhaler*] 2 puff INH Q4H PRN 04/27/17 [ History Confirmed 12/24/17] Cyclosporine 0.05% OPHTH (NF) [Restasis 0.05% OPHTH] 0.05 % OP Q12H 04/27/17 [ History Confirmed 12/24/17] Famotidine TAB* [Pepcid 20 MG TAB*] 20 mg PO DAILY 04/27/17 [History Confirmed 12/23/17] Insulin NPH Human Isophane [Humulin N Kwikpen 100 units/ml 3 ml x 5 Pens] 15 units IM BID AC 04/27/17 [History Confirmed 12/24/17] QUEtiapine TAB* [Seroquel 25 MG TAB*] 25 mg PO DAILY 04/27/17 [History Confirmed 12/23/17] Dicyclomine CAP* [Bentyl CAP*] 20 mg PO BID 07/20/17 [History Confirmed 12/23/17 ] Ferrous Sulfate TAB* 325 mg PO DAILY #30 tab 12/25/17 [Rx] Potassium Chlor TAB* [Klor Con ER TAB 10 MEQ*] 10 meq PO DAILY #30 tab.er [Rx] Pregabalin 25 mg CAP (*) [Lyrica 25 mg CAP (*)] 25 mg PO DAILY #30 cap MDD 25mg 12/25/17 [Rx] ceFUROXime 250 MG TAB [Ceftin TAB 250 MG(*)] 250 mg PO BID 4 Days #8 tab [Rx] Ondansetron ODT TAB* [Zofran 4 MG Odt TAB*] 4 mg PO Q8H PRN #12 tab.odt [Rx] Ondansetron ODT TAB* [Zofran 4 MG Odt TAB*] 4 mg PO Q8H PRN #12 tab.odt [Rx] diPHENhydraMINE PO* [Benadryl PO 25 MG TAB*] 25 mg PO Q6H PRN #30 tab 05/14/19 [ Rx] PMH/Surg Hx/FS Hx/Imm Hx Endocrine/Hematology History: Reports: Hx Diabetes - insulin dependent diabetic , Other Endocrine/Hematological Disorders - HIV POSITIVE Denies: Hx Thyroid Disease Cardiovascular History: Reports: Hx Hypercholesterolemia, Hx Hypertension, Other Cardiovascular Problems/Disorders - hyperlipidemia Denies: Hx Pacemaker/ICD Respiratory History: Reports: Hx Chronic Bronchitis, Hx Chronic Obstructive Pulmonary Disease (COPD) Denies: Hx Asthma GI History: Reports: Hx Gastroesophageal Reflux Disease Denies: Hx Ulcer History: Reports: Hx Kidney Infection, Other Problems/Disorders - hemorrhoids, herpes simplex Denies: Hx Kidney Stones, Hx Renal Disease Musculoskeletal History: Reports: Hx Arthritis Sensory History: Reports: Hx Cataracts - left eye, Hx Contacts or Glasses - readers, Hx Eye Prosthesis - Rt, Hx Vision Problem - RIGHT EYE PROSTHETIC, Other Sensory Impairments - no contacts - wears eyeglasses Denies: Hx Glaucoma, Hx Hearing Aid Opthamlomology History: Reports: Hx Cataracts - left eye, Hx Contacts or Glasses - readers, Hx Eye Prosthesis - Rt, Hx Vision Problem - RIGHT EYE PROSTHETIC, Other Sensory Impairments - no contacts - wears eyeglasses Denies: Hx Glaucoma Neurological History: Reports: Hx Nerve Disease - neuropathy, Other Neuro Impairments/Disorders - schizophrenia Psychiatric History: Reports: Hx Depression, Hx Schizophrenia, Hx Substance Abuse Denies: Hx Panic Disorder - Cancer History Hx Chemotherapy: No Hx Radiation Therapy: No - Surgical History Surgery Procedure, Year, and Place: right eye prosthetic - d/t trauma. right lower abdomen cyst removal Hx Anesthesia Reactions: No - Immunization History Date of Tetanus Vaccine: utd Date of Influenza Vaccine: 03/2017 Infectious Disease History: No Infectious Disease History: Reports: Hx Hepatitis - chronic HEP C, Hx Human Immunodeficiency Virus (HIV), Hx of Known/Suspected MRSA Denies: Traveled Outside the [place] in Last 30 Days - Family History Known Family History: Positive: Cardiac Disease, Hypertension - Social History Alcohol Use: None Alcohol Amount: pt refuses to answer questions Hx Substance Use: Yes Substance Use Type: Reports: None Substance Use Comment - Amount & Last Used: pt refuses to answer questions Hx Tobacco Use: Yes Smoking Status (MU): Never Smoked Tobacco Type: Cigarettes Amount Used/How Often: 2 ppd for 20 yrs Have You Smoked in the Last Year: No Review of Systems Positive: Other - phlegm in throat. Negative: Sore Throat Positive: Cough - nonproductive Positive: Vomiting, Other - negative constipation. Negative: Abdominal Pain, Diarrhea All Other Systems Reviewed And Are Negative: Yes Physical Exam - Summary Physical Exam Summary: Constitutional: Well-developed, Well-nourished, Alert. (-) Distressed Skin: Warm, Dry HENT: Normocephalic; Atraumatic Eyes: Conjunctiva normal Neck: Musculoskeletal ROM normal neck. (-) JVD, (-) Stridor, (-) Tracheal deviation Cardio: Rhythm regular, rate normal, Heart sounds normal; Intact distal pulses; Radial pulses are 2+ and symmetric. (-) Murmur Pulmonary/Chest wall: Effort normal. (-) Respiratory distress, (-) Wheezes, (-) Rales Abd/: Soft, (-) Abdominal tenderness, (-) Bowel tenderness, (-) Distension, (- ) Guarding, (-) Rebound Musculoskeletal: (-) Edema Lymph: (-) Cervical adenopathy Neuro: Alert, Oriented x3 Psych: Mood and affect Normal Triage Information Reviewed: Yes Vital Signs On Initial Exam: Initial Vitals Temp Pulse Resp BP Pulse Ox 98.3 F 98 24 174/100 99 05/15/19 12:37 05/15/19 12:37 05/15/19 12:37 05/15/19 12:37 05/15/19 12:37 Vital Signs Reviewed: Yes Procedures - Sedation Patient Received Moderate/Deep Sedation with Procedure: No Diagnostics - Vital Signs Vital Signs Temp Pulse Resp BP Pulse Ox 05/15/19 12:37 98.3 F 98 24 174/100 99 - Laboratory Result Diagrams: 05/15/19 13:01 05/15/19 13:01 Lab Statement: Any lab studies that have been ordered have been reviewed, and results considered in the medical decision making process. - EKG 1345 Cardiac Rate: NL EKG Rhythm: Sinus Rhythm Summary of EKG Findings: EKG at 1345 shows NSR at 97bpm. Prolonged QTC of 512. 2 PVCs. This EKG was reviewed and interpreted by the ED physician. Re-Evaluation - Re-Evaluation First Eval Re-Evaluation Time: 14:54 Comment: Not feeling better from Haldol. Due to prolonged QTC will not try any meds that prolong QTC. Will try Ativan. Second Eval Re-Evaluation Time: 15:01 Comment: Pt is refusing Troponin drop. Third Eval Re-Evaluation Time: 16:05 Comment: Pt is now accepting a blood draw. Fourth Eval Re-Evaluation Time: 17:59 Comment: Pt feels better and is ready to go. GIGU Course/Dx - Course Course Of Treatment: Patient is here complaining of nausea. Patient had no episodes of vomiting on the ED. Patient states she has phlegm in her throat and wants to get it out. Patient's been here multiple times for similar symptoms recently. Patient had an IV placed by myself. Patient was given Haldol. After Haldol was given, an EKG is performed showed a widened QTC. Patient had blood performed grossly unremarkable. Patient's leukocytosis is improving. Patient had a normal CRP. Patient's creatinine is at her baseline. Patient was also given Ativan for her nausea. Patient given a liter of IV fluids. Patient had no abdominal tenderness and does not need any imaging at this time. - Diagnoses Provider Diagnoses: Nausea Discharge ED - Sign-Out/Discharge Documenting (check all that apply): Patient Departure - dc - Discharge Plan Condition: Improved Disposition: HOME Patient Education Materials: Acute Nausea and Vomiting (ED) Referrals: Fan Parsons MD [Primary Care Provider] - Additional Instructions: PLEASE FOLLOW UP WITH YOUR PRIMARY CARE DOCTOR IN 1-3 DAYS RETURN IF YOU HAVE ABDOMINAL PAIN OR ANY OTHER CONCERNING SYMPTOMS - Billing Disposition and Condition Condition: IMPROVED Disposition: Home - Attestation Statements Document Initiated by Scribe: Yes Documenting Scribe: Durga Abdi Provider For Whom Gaston is Documenting (Include Credential): Jorge Caldwell MD Scribe Attestation: I, Durga Abdi, scribed for Jorge Caldwell MD on 05/15/19 at 2047. Scribe Documentation Reviewed: Yes Provider Attestation: The documentation as recorded by the Durga quinonez accurately reflects the service I personally performed and the decisions made by me, Jorge Caldwell MD Status of Scribe Document: Viewed
[2019-05-15 13:22] LABS: ABS Basophils 0.1 10^3/ul (0-0.2); ABS Eosinophils 0.2 10^3/ul (0-0.6); ABS Lymphocytes 2.1 10^3/ul (1.0-4.8); ABS Monocytes 0.8 10^3/ul (0-0.8); ABS Neutrophils 7.8 10^3/ul (1.5-7.7); Eosinophil % 1.5 %; Hematocrit 31 % (35-47); Lymphocyte % 19.4 %; Mean Corpuscular HGB Conc 32 g/dL (31-36); Mean Corpuscular Hemoglobin 23 pg (27-31); Mean Corpuscular Volume 74 fL (80-97); Mean Platelet Volume 7.7 fL (7.4-10.4); Platelet Count 273 10^3/uL (150-450); Red Blood Count 4.27 10^6 /uL (3.70-4.87); Red Cell Distribution Width 17 % (10-15)
[2019-05-15 13:28] LABS: Albumin 3.7 g/dL (3.2-5.2); BUN/Creatinine Ratio 18.9 (8-20); C Reactive Protein 5.93 mg/L (<8.01); Calcium 9.6 mg/dL (8.6-10.3); EGFR African American 47.9 (>60); EGFR Non-African American 39.6 (>60); Globulin 3.7 g/dL (2-4); Potassium 3.7 mmol/L (3.5-5.0); Total Bilirubin 0.6 mg/dL (0.2-1.0); Total Protein 7.4 g/dL (6.4-8.9)
[2019-05-15 13:33] LABS: Troponin I 0.04 ng/mL (<0.03)
[2019-05-15] MEDS ORDERED: Lorazepam PYXIS KEY PRN (14:53)
[2019-05-15] MEDS ORDERED: LORazepam INJ* 2 MG/ML 1 ML VIAL IV PUSH ONE (14:53)
[2019-05-15] MEDS ORDERED: Lorazepam PYXIS KEY ONE (15:09)
[2019-05-15 17:38] LABS: Troponin I 0.03 ng/mL (<0.03)
[2019-05-15 18:17] VITALS: BP 123/75
== END 2019-05-15 18:14 | disposition home or self-care (01) ==
LOC: ED 12:34
DX: R11.2 Nausea with vomiting, unspecified (principal); R05 Cough; E11.9 Type 2 diabetes mellitus without complications; Z79.4 Long term (current) use of insulin; E78.00 Pure hypercholesterolemia, unspecified; I10 Essential (primary) hypertension; J44.9 Chronic obstructive pulmonary disease, unspecified; K21.9 Gastro-esophageal reflux disease without esophagitis; F20.9 Schizophrenia, unspecified; F32.9 Major depressive disorder, single episode, unspecified; Z79.899 Other long term (current) drug therapy
CPT/HCPCS: 36415; 80053; 83605; 83690; 84484; 85025; 86140; 93005; 96361; 96374; 96375; 99284; J1630; J2060

== ENCOUNTER 2019-05-16 12:31 | Emergency (ER) | payer MEDICARE, MEDICAID ==
--- NOTE | 2019-05-16 12:42 | ED ---
GI/ HPI - HPI Summary HPI Summary: Patient is a 73 y/o F arriving via ambulance to [facility] with a chief complaint of nausea for the last three days. Patient seen here every day since 05/14/2019 with similar symptoms. She states that she has not improvement in her symptoms. She has not been eating or drinking anything. No abdominal pain. Last BM was yesterday. No blood or diarrhea. No abdominal surgeries. Past medical history includes diabetes with neuropathy, HLD, HTN, COPD, depression, schizophrenia, substance abuse, HIV, hepatitis C, MRSA. Former smoker, no alcohol use, no substance use. - History of Current Complaint Time Seen by Provider: 05/16/19 12:33 Stated Complaint: NAUSEA PER EMS Hx Obtained From: Patient Onset/Duration: Started Days Ago, Still Present Timing: Constant Associated Signs and Symptoms: Positive: Nausea. Negative: Constipation, Blood w/Stool, Diarrhea, Fever, Abdominal Pain Aggravating Factor(s): Nothing Alleviating Factor(s): Nothing - Additional Pertinent History Primary Care Physician: TATI - Allergy/Home Medications Allergies/Adverse Reactions: Allergies Allergy/AdvReac Type Severity Reaction Status Date / Time No Known Allergies Allergy Verified 05/15/19 12:38 Home Medications: Home Medications Chlorthalidone TAB* [Hygroton TAB*] 50 mg PO DAILY 02/07/13 [History Confirmed 05/16/19] Lisinopril TAB* [Prinivil TAB 10 MG*] 40 mg PO DAILY 02/07/13 [History Confirmed 05/16/19] Simvastatin TAB(NF) [Zocor 20 MG (NF)] 20 mg PO DAILY 02/07/13 [History Confirmed 05/16/19] ValACYclovir (*) [Valtrex 1 GM(*)] 1 gm PO DAILY 06/18/15 [History Confirmed ] Diclofenac 1% GEL (NF) [Voltaren 1% GEL (NF)] 2 grams TOPICAL QID PRN 07/31/15 [ History Confirmed 05/16/19] Insulin GLARGINE(*) [Lantus 100 units/ml 10 ml VIAL (*)] 60 units SUBCUT BID [History Confirmed 05/16/19] Albuterol HFA INHALER* [Ventolin HFA Inhaler*] 2 puff INH QID PRN 04/27/17 [ History Confirmed 05/16/19] Cyclosporine 0.05% OPHTH (NF) [Restasis 0.05% OPHTH] 0.05 % OP Q12H 04/27/17 [ History Confirmed 05/16/19] Famotidine TAB* [Pepcid 20 MG TAB*] 20 mg PO DAILY 04/27/17 [History Confirmed 05/16/19] Insulin NPH Human Isophane [Humulin N Kwikpen 100 units/ml 3 ml x 5 Pens] 15 units IM BID AC 04/27/17 [History Confirmed 05/16/19] QUEtiapine TAB* [Seroquel 25 MG TAB*] 25 mg PO DAILY 04/27/17 [History Confirmed 05/16/19] Dicyclomine CAP* [Bentyl CAP*] 20 mg PO BID 07/20/17 [History Confirmed 05/16/19 ] Potassium Chlor TAB* [Klor Con ER TAB 10 MEQ*] 10 meq PO DAILY #30 tab.er [Rx Confirmed 05/16/19] Pregabalin 25 mg CAP (*) [Lyrica 25 mg CAP (*)] 25 mg PO DAILY #30 cap MDD 25mg 12/25/17 [Rx Confirmed 05/16/19] Ondansetron ODT TAB* [Zofran 4 MG Odt TAB*] 4 mg PO Q8H PRN #12 tab.odt [Rx Confirmed 05/16/19] Abacavir/Dolutegravir/Lamivudi [Triumeq 600-50-300 mg Tablet] 1 each PO DAILY [History Confirmed 05/16/19] Albuterol 2.5MG/3ML (0.083%)* [Ventolin 2.5 MG/3 ML NEB.LEWIS*] 2.5 mg INH TID PRN 05/16/19 [History Confirmed 05/16/19] Cholecalciferol CAP/TAB(NF) [Vitamin D3 CAP/TAB (NF)] 2,000 unit PO DAILY [History Confirmed 05/16/19] Ciprofloxacin 0.3% OPTH.LEWIS* [Cipro 0.3% Opth*] 1 drop BOTH EYES Q4H 05/16/19 [ History Confirmed 05/16/19] Clotrimazole 1% CREAM* [Clotrimazole 1%*] 1 applic TOPICAL BID 05/16/19 [ History Confirmed 05/16/19] Crofelemer [Fulyzaq] 125 mg PO BID 05/16/19 [History Confirmed 05/16/19] Cyclosporine 0.05% OPHTH (NF) [Restasis 0.05% OPHTH] 1 drop BOTH EYES DAILY [History Confirmed 05/16/19] Dulaglutide (NF) [Trulicity (NF)] 0.5 ml SUBCUT WEEKLY 05/16/19 [History Confirmed 05/16/19] Ibuprofen TAB* [Motrin TAB* 800 MG] 800 mg PO TID PRN 05/16/19 [History Confirmed 05/16/19] Insulin NPH Human Isophane [Humulin N Kwikpen 100 units/ml 3 ml x 5 Pens] 20 units SUBCUT .BEFORE DINNER 05/16/19 [History Confirmed 05/16/19] Magnesium Oxide TAB* [MagOx 400 TAB*] 400 mg PO DAILY 05/16/19 [History Confirmed 05/16/19] Miconazole Nitrate [Miconazole-7] 1 applic VAGINAL BID 05/16/19 [History Confirmed 05/16/19] Peg 400/Hypromellose/Glycerin [Visine Dry Eye Relief Drop] 2 drop BOTH EYES QID 05/16/19 [History Confirmed 05/16/19] Polyethylene Glycol 3350* [Miralax (17 GM DOSE GERARD)] 17 gm PO DAILY 05/16/19 [ History Confirmed 05/16/19] Propylene Glycol/Peg 400/Pf [Systane 0.3-0.4% Eye Drops] 1 drop BOTH EYES QID [History Confirmed 05/16/19] QUEtiapine XR TAB* [Seroquel Xr 50 MG TAB*] 50 mg PO BID 05/16/19 [History Confirmed 05/16/19] Saliva Substitute (NF) [Biotene Moisturizing Mouth (NF)] 1 spray MT BID [History Confirmed 05/16/19] Sulfamethoxazole/Trimethoprim [Sulfamethoxazole-Tmp Ds Tablet] 1 each PO BID [History Confirmed 05/16/19] glipiZIDE [Glipizide Xl] 10 mg PO DAILY 05/16/19 [History Confirmed 05/16/19] traMADol TAB* [Ultram*] 25 mg PO Q6HR PRN 05/16/19 [History Confirmed 05/16/19] PMH/Surg Hx/FS Hx/Imm Hx Endocrine/Hematology History: Reports: Hx Diabetes - insulin dependent diabetic , Other Endocrine/Hematological Disorders - HIV POSITIVE Denies: Hx Thyroid Disease Cardiovascular History: Reports: Hx Hypercholesterolemia, Hx Hypertension, Other Cardiovascular Problems/Disorders - hyperlipidemia Denies: Hx Pacemaker/ICD Respiratory History: Reports: Hx Chronic Bronchitis, Hx Chronic Obstructive Pulmonary Disease (COPD) Denies: Hx Asthma GI History: Reports: Hx Gastroesophageal Reflux Disease Denies: Hx Ulcer History: Reports: Hx Kidney Infection, Other Problems/Disorders - hemorrhoids, herpes simplex Denies: Hx Kidney Stones, Hx Renal Disease Musculoskeletal History: Reports: Hx Arthritis Sensory History: Reports: Hx Cataracts - left eye, Hx Contacts or Glasses - readers, Hx Eye Prosthesis - Rt, Hx Vision Problem - RIGHT EYE PROSTHETIC, Other Sensory Impairments - no contacts - wears eyeglasses Denies: Hx Glaucoma, Hx Hearing Aid Opthamlomology History: Reports: Hx Cataracts - left eye, Hx Contacts or Glasses - readers, Hx Eye Prosthesis - Rt, Hx Vision Problem - RIGHT EYE PROSTHETIC, Other Sensory Impairments - no contacts - wears eyeglasses Denies: Hx Glaucoma Neurological History: Reports: Hx Nerve Disease - neuropathy, Other Neuro Impairments/Disorders - schizophrenia Psychiatric History: Reports: Hx Depression, Hx Schizophrenia, Hx Substance Abuse Denies: Hx Panic Disorder - Cancer History Hx Chemotherapy: No Hx Radiation Therapy: No - Surgical History Surgery Procedure, Year, and Place: right eye prosthetic - d/t trauma. right lower abdomen cyst removal Hx Anesthesia Reactions: No - Immunization History Date of Tetanus Vaccine: utd Date of Influenza Vaccine: 03/2017 Infectious Disease History: Reports: Hx Hepatitis - chronic HEP C, Hx Human Immunodeficiency Virus (HIV), Hx of Known/Suspected MRSA - Family History Known Family History: Positive: Cardiac Disease, Hypertension - Social History Alcohol Use: None Alcohol Amount: pt refuses to answer questions Hx Substance Use: Yes Substance Use Type: Reports: None Substance Use Comment - Amount & Last Used: pt refuses to answer questions Hx Tobacco Use: Yes Smoking Status (MU): Never Smoked Tobacco Type: Cigarettes Amount Used/How Often: 2 ppd for 20 yrs Have You Smoked in the Last Year: No Review of Systems Negative: Fever Positive: Nausea. Negative: Abdominal Pain, Vomiting, Diarrhea, Other - no PO intake; Negative: constipation, blood in stool All Other Systems Reviewed And Are Negative: Yes Physical Exam - Summary Physical Exam Summary: Constitutional: Well-developed, Well-nourished, Alert. (-) Distressed Skin: Warm, Dry HENT: Normocephalic; Atraumatic Eyes: Conjunctiva normal Neck: Musculoskeletal ROM normal neck. (-) JVD, (-) Stridor, (-) Tracheal deviation Cardio: Rhythm regular, rate normal, Heart sounds normal; Intact distal pulses; Radial pulses are 2+ and symmetric. (-) Murmur Pulmonary/Chest wall: Effort normal. (-) Respiratory distress, (-) Wheezes, (-) Rales Abd: Soft, (-) tenderness, (-) Distension, (-) Guarding, (-) Rebound Musculoskeletal: (-) Edema Lymph: (-) Cervical adenopathy Neuro: Alert, Oriented x3 Psych: Mood and affect Normal Triage Information Reviewed: Yes Vital Signs Reviewed: Yes Procedures - Sedation Patient Received Moderate/Deep Sedation with Procedure: No Diagnostics - Laboratory Result Diagrams: 05/16/19 14:58 05/16/19 13:45 Lab Statement: Any lab studies that have been ordered have been reviewed, and results considered in the medical decision making process. Re-Evaluation - Re-Evaluation First Eval Re-Evaluation Time: 15:30 Change: Improved Comment: Patient tolerating PO. Safe for discharge. GIGU Course/Dx - Course Course Of Treatment: Patient is a 73 y/o F arriving via ambulance for persistent nausea over the last few days with multiple ED visits for similar symptoms resulting in negative workups. No PO intake, blood in stool, diarrhea, constipation, or abd pain. No abd surgeries. The patients abdomen is soft, non- tender, and non-distended during physical exam. Patient received PO Reglan and Benadryl in the ED course. Blood work unchanged from yesterday, revealing WBCs 12.1, hemoglobin 10.2, hematocrit 32, MCV 74, MCH 24, creatinine 1.05, glucose 147. Patient given PO challenge. Keeping liquids down. No vomiting in the ED. Patient requesting IV fluids and medications; however, none are given since there is no clinical indication at this time based on multiple recent ED visits. All results discussed with patient. Patient is safe for discharge. Patient is advised to follow up with PCP tomorrow. Return precautions given. Patient agreeable with plan. - Diagnoses Provider Diagnoses: Nausea Discharge ED - Sign-Out/Discharge Documenting (check all that apply): Patient Departure - Patient will be discharged home. - Discharge Plan Condition: Stable Disposition: HOME Patient Education Materials: Acute Nausea and Vomiting (ED) Referrals: Fan Parsons MD [Primary Care Provider] - 1 Day Additional Instructions: Follow up with your primary care provider tomorrow. Return to the emergency department for any new or worsening symptoms. - Billing Disposition and Condition Condition: STABLE Disposition: Home - Attestation Statements Document Initiated by Gaston: Yes Documenting Scribe: Pamela Christiansen Provider For Whom Gaston is Documenting (Include Credential): Nirmal Godfrey DO [place] Attestation: Pameal Hastings scribed for Nirmal Godfrey DO on 05/17/19 at 0822. Scribe Documentation Reviewed: Yes Provider Attestation: The documentation as recorded by the Paemla quinonez accurately reflects the service I personally performed and the decisions made by , Nirmal Godfrey DO Status of [place] Document: Viewed
[2019-05-16] MEDS ORDERED: Metoclopramide TAB* 10 MG PO ONE (12:45)
[2019-05-16] MEDS ORDERED: diPHENhydraMINE PO* 25 MG PO ONE (12:45)
[2019-05-16 13:43] VITALS: BP 149/88
[2019-05-16 14:29] LABS: Albumin 3.5 g/dL (3.2-5.2); Calcium 9.2 mg/dL (8.6-10.3); Total Bilirubin 0.5 mg/dL (0.2-1.0)
[2019-05-16 14:35] LABS: Albumin/Globulin Ratio 0.9 (1-3); EGFR African American 62.3 (>60); EGFR Non-African American 51.5 (>60); Globulin 3.8 g/dL (2-4); Total Protein 7.3 g/dL (6.4-8.9)
[2019-05-16 15:08] LABS: ABS Basophils 0.1 10^3/ul (0-0.2); ABS Eosinophils 0.1 10^3/ul (0-0.6); ABS Lymphocytes 2.7 10^3/ul (1.0-4.8); ABS Neutrophils 8.2 10^3/ul (1.5-7.7); Eosinophil % 1.2 %; Hematocrit 32 % (35-47); Hemoglobin 10.2 g/dL (12.0-16.0); Lymphocyte % 22.3 %; Mean Corpuscular HGB Conc 32 g/dL (31-36); Mean Corpuscular Hemoglobin 24 pg (27-31); Mean Corpuscular Volume 74 fL (80-97); Mean Platelet Volume 7.3 fL (7.4-10.4); Platelet Count 307 10^3/uL (150-450); Red Blood Count 4.33 10^6 /uL (3.70-4.87); Red Cell Distribution Width 17 % (10-15); White Blood Count 12.1 10^3/uL (3.5-10.8)
== END 2019-05-16 15:41 | disposition home or self-care (01) ==
LOC: ED 12:31
DX: R11.0 Nausea (principal); K73.9 Chronic hepatitis, unspecified; I10 Essential (primary) hypertension; E78.5 Hyperlipidemia, unspecified; Z21 Asymptomatic human immunodeficiency virus [HIV] infection status; E78.00 Pure hypercholesterolemia, unspecified; E11.9 Type 2 diabetes mellitus without complications; Z86.14 Personal history of Methicillin resistant Staphylococcus aureus infection; K21.9 Gastro-esophageal reflux disease without esophagitis; F32.9 Major depressive disorder, single episode, unspecified; Z79.4 Long term (current) use of insulin; Z79.899 Other long term (current) drug therapy
CPT/HCPCS: 36415; 80053; 85025; 99284; A9270-GY

== ENCOUNTER 2019-05-17 11:45 | Emergency (ER) | payer MEDICARE, MEDICAID ==
[2019-05-17] MEDS ORDERED: Ondansetron INJ* 2 MG/ML VIAL IM ONE (11:59)
--- NOTE | 2019-05-17 12:01 | ED ---
GI/ HPI - HPI Summary HPI Summary: 73 year old female presents with nausea for the past month. She states that she has had occasional vomiting but will not say when she has last vomited. She states that whenever she has a nausea she tries the oral meds but they do not work only IV meds work. She states she feels dehydrated. She states that she is so sick. Denies any fevers. No recent travel. No cough. No chest or shortness breath. No abdominal pain. No diarrhea. - History of Current Complaint Chief Complaint: EDNauseaVomitDiarrh Time Seen by Provider: 05/17/19 11:50 Stated Complaint: GENERAL ILLNESS Pain Intensity: 0 - Additional Pertinent History Primary Care Physician: TATI - Allergy/Home Medications Allergies/Adverse Reactions: Allergies Allergy/AdvReac Type Severity Reaction Status Date / Time No Known Allergies Allergy Verified 05/15/19 12:38 Home Medications: Home Medications Chlorthalidone TAB* [Hygroton TAB*] 50 mg PO DAILY 02/07/13 [History Confirmed 05/17/19] Lisinopril TAB* [Prinivil TAB 10 MG*] 40 mg PO DAILY 02/07/13 [History Confirmed 05/17/19] Simvastatin TAB(NF) [Zocor 20 MG (NF)] 20 mg PO DAILY 02/07/13 [History Confirmed 05/17/19] ValACYclovir (*) [Valtrex 1 GM(*)] 1 gm PO DAILY 06/18/15 [History Confirmed ] Diclofenac 1% GEL (NF) [Voltaren 1% GEL (NF)] 2 grams TOPICAL QID PRN 07/31/15 [ History Confirmed 05/17/19] Insulin GLARGINE(*) [Lantus 100 units/ml 10 ml VIAL (*)] 60 units SUBCUT BID [History Confirmed 05/17/19] Albuterol HFA INHALER* [Ventolin HFA Inhaler*] 2 puff INH QID PRN 04/27/17 [ History Confirmed 05/17/19] Cyclosporine 0.05% OPHTH (NF) [Restasis 0.05% OPHTH] 0.05 % OP Q12H 04/27/17 [ History Confirmed 05/17/19] Famotidine TAB* [Pepcid 20 MG TAB*] 20 mg PO DAILY 04/27/17 [History Confirmed 05/17/19] Insulin NPH Human Isophane [Humulin N Kwikpen 100 units/ml 3 ml x 5 Pens] 15 units IM BID AC 04/27/17 [History Confirmed 05/17/19] QUEtiapine TAB* [Seroquel 25 MG TAB*] 25 mg PO DAILY 04/27/17 [History Confirmed 05/17/19] Dicyclomine CAP* [Bentyl CAP*] 20 mg PO BID 07/20/17 [History Confirmed 05/17/19 ] Potassium Chlor TAB* [Klor Con ER TAB 10 MEQ*] 10 meq PO DAILY #30 tab.er [Rx Confirmed 05/17/19] Pregabalin 25 mg CAP (*) [Lyrica 25 mg CAP (*)] 25 mg PO DAILY #30 cap MDD 25mg 12/25/17 [Rx Confirmed 05/17/19] Ondansetron ODT TAB* [Zofran 4 MG Odt TAB*] 4 mg PO Q8H PRN #12 tab.odt [Rx Confirmed 05/17/19] Abacavir/Dolutegravir/Lamivudi [Triumeq 600-50-300 mg Tablet] 1 each PO DAILY [History Confirmed 05/17/19] Albuterol 2.5MG/3ML (0.083%)* [Ventolin 2.5 MG/3 ML NEB.LEWIS*] 2.5 mg INH TID PRN 05/16/19 [History Confirmed 05/17/19] Cholecalciferol CAP/TAB(NF) [Vitamin D3 CAP/TAB (NF)] 2,000 unit PO DAILY [History Confirmed 05/17/19] Ciprofloxacin 0.3% OPTH.LEWIS* [Cipro 0.3% Opth*] 1 drop BOTH EYES Q4H 05/16/19 [ History Confirmed 05/17/19] Clotrimazole 1% CREAM* [Clotrimazole 1%*] 1 applic TOPICAL BID 05/16/19 [ History Confirmed 05/17/19] Crofelemer [Fulyzaq] 125 mg PO BID 05/16/19 [History Confirmed 05/17/19] Cyclosporine 0.05% OPHTH (NF) [Restasis 0.05% OPHTH] 1 drop BOTH EYES DAILY [History Confirmed 05/17/19] Dulaglutide (NF) [Trulicity (NF)] 0.5 ml SUBCUT WEEKLY 05/16/19 [History Confirmed 05/17/19] Ibuprofen TAB* [Motrin TAB* 800 MG] 800 mg PO TID PRN 05/16/19 [History Confirmed 05/17/19] Insulin NPH Human Isophane [Humulin N Kwikpen 100 units/ml 3 ml x 5 Pens] 20 units SUBCUT .BEFORE DINNER 05/16/19 [History Confirmed 05/17/19] Magnesium Oxide TAB* [MagOx 400 TAB*] 400 mg PO DAILY 05/16/19 [History Confirmed 05/17/19] Miconazole Nitrate [Miconazole-7] 1 applic VAGINAL BID 05/16/19 [History Confirmed 05/17/19] Peg 400/Hypromellose/Glycerin [Visine Dry Eye Relief Drop] 2 drop BOTH EYES QID 05/16/19 [History Confirmed 05/17/19] Polyethylene Glycol 3350* [Miralax (17 GM DOSE GERARD)] 17 gm PO DAILY 05/16/19 [ History Confirmed 05/17/19] Propylene Glycol/Peg 400/Pf [Systane 0.3-0.4% Eye Drops] 1 drop BOTH EYES QID [History Confirmed 05/17/19] QUEtiapine XR TAB* [Seroquel Xr 50 MG TAB*] 50 mg PO BID 05/16/19 [History Confirmed 05/17/19] Saliva Substitute (NF) [Biotene Moisturizing Mouth (NF)] 1 spray MT BID [History Confirmed 05/17/19] Sulfamethoxazole/Trimethoprim [Sulfamethoxazole-Tmp Ds Tablet] 1 each PO BID [History Confirmed 05/17/19] glipiZIDE [Glipizide Xl] 10 mg PO DAILY 05/16/19 [History Confirmed 05/17/19] traMADol TAB* [Ultram*] 25 mg PO Q6HR PRN 05/16/19 [History Confirmed 05/17/19] Prochlorperazine SUPP* [Compazine Supp*] 25 mg [place] Q12H PRN #12 supp 05/17/19 [Rx ] PMH/Surg Hx/FS Hx/Imm Hx Endocrine/Hematology History: Reports: Hx Diabetes - insulin dependent diabetic , Other Endocrine/Hematological Disorders - HIV POSITIVE Denies: Hx Thyroid Disease Cardiovascular History: Reports: Hx Hypercholesterolemia, Hx Hypertension, Other Cardiovascular Problems/Disorders - hyperlipidemia Denies: Hx Pacemaker/ICD Respiratory History: Reports: Hx Chronic Bronchitis, Hx Chronic Obstructive Pulmonary Disease (COPD) Denies: Hx Asthma GI History: Reports: Hx Gastroesophageal Reflux Disease Denies: Hx Ulcer History: Reports: Hx Kidney Infection, Other Problems/Disorders - hemorrhoids, herpes simplex Denies: Hx Kidney Stones, Hx Renal Disease Musculoskeletal History: Reports: Hx Arthritis Sensory History: Reports: Hx Cataracts - left eye, Hx Contacts or Glasses - readers, Hx Eye Prosthesis - Rt, Hx Vision Problem - RIGHT EYE PROSTHETIC, Other Sensory Impairments - no contacts - wears eyeglasses Denies: Hx Glaucoma, Hx Hearing Aid Opthamlomology History: Reports: Hx Cataracts - left eye, Hx Contacts or Glasses - readers, Hx Eye Prosthesis - Rt, Hx Vision Problem - RIGHT EYE PROSTHETIC, Other Sensory Impairments - no contacts - wears eyeglasses Denies: Hx Glaucoma Neurological History: Reports: Hx Nerve Disease - neuropathy, Other Neuro Impairments/Disorders - schizophrenia Psychiatric History: Reports: Hx Depression, Hx Schizophrenia, Hx Substance Abuse Denies: Hx Panic Disorder - Cancer History Hx Chemotherapy: No Hx Radiation Therapy: No - Surgical History Surgery Procedure, Year, and Place: right eye prosthetic - d/t trauma. right lower abdomen cyst removal Hx Anesthesia Reactions: No - Immunization History Date of Tetanus Vaccine: utd Date of Influenza Vaccine: 03/2017 Infectious Disease History: No Infectious Disease History: Reports: Hx Hepatitis - chronic HEP C, Hx Human Immunodeficiency Virus (HIV), Hx of Known/Suspected MRSA Denies: Traveled Outside the [place] in Last 30 Days - Family History Known Family History: Positive: Cardiac Disease, Hypertension - Social History Alcohol Use: None Alcohol Amount: pt refuses to answer questions Hx Substance Use: Yes Substance Use Type: Reports: None Substance Use Comment - Amount & Last Used: pt refuses to answer questions Hx Tobacco Use: Yes Smoking Status (MU): Never Smoked Tobacco Type: Cigarettes Amount Used/How Often: 2 ppd for 20 yrs Have You Smoked in the Last Year: No Review of Systems Negative: Fever Negative: Chest Pain Negative: Shortness Of Breath Positive: Vomiting, Nausea. Negative: Abdominal Pain, Diarrhea All Other Systems Reviewed And Are Negative: Yes Physical Exam Triage Information Reviewed: Yes Vital Signs On Initial Exam: Initial Vitals Temp Pulse Resp BP Pulse Ox 98.6 F 91 16 141/106 100 05/17/19 11:46 05/17/19 11:46 05/17/19 11:46 05/17/19 11:46 05/17/19 11:46 Vital Signs Reviewed: Yes Appearance: Positive: Well-Appearing Skin: Positive: Warm, Dry Head/Face: Positive: Normal Head/Face Inspection Eyes: Positive: Normal, Conjunctiva Clear ENT: Positive: Pharynx normal Respiratory/Lung Sounds: Positive: Clear to Auscultation, Breath Sounds Present Cardiovascular: Positive: Normal, RRR Abdomen Description: Positive: Nontender, Soft Bowel Sounds: Positive: Present Musculoskeletal: Positive: Normal Neurological: Positive: Normal Psychiatric: Positive: Normal Procedures - Sedation Patient Received Moderate/Deep Sedation with Procedure: No Diagnostics - Vital Signs Vital Signs Temp Pulse Resp BP Pulse Ox 05/17/19 11:46 98.6 F 91 16 141/106 100 - Laboratory Result Diagrams: 05/17/19 12:15 05/17/19 12:15 Lab Statement: Any lab studies that have been ordered have been reviewed, and results considered in the medical decision making process. Re-Evaluation - Re-Evaluation First Eval Re-Evaluation Time: 12:36 Change: Improved Comment: wants ice cubes, will PO challenge Second Eval Re-Evaluation Time: 13:37 Comment: patient states needs IV. will try GI cocktail. GIGU Course/Dx - Course Course Of Treatment: 73 year old female presents with nausea for the past month. She states that she has had occasional vomiting but will not say when she has last vomited. She states that whenever she has a nausea she tries the oral meds but they do not work only IV meds work. She states she feels dehydrated. She states that she is so sick. Denies any fevers. No recent travel. No cough. No chest or shortness breath. No abdominal pain. No diarrhea. On exam patient appears well. Nontender abdomen. wbc normal. crp normal. PO challenge and patient states still feels nausous but has not vomited in room. gave GI cocktail which tolerated. discussed should have zofran at home so will do compazine suppository if needed. told follow up with primary. patient understand and agrees with plan. - Diagnoses Differential Diagnoses - Female: Gastritis, Gastroenteritis (Viral), Gastroenteritis (Bacterial) Provider Diagnoses: Nausea Discharge ED - Sign-Out/Discharge Documenting (check all that apply): Patient Departure - Discharge Plan Condition: Good Disposition: HOME Prescriptions: Prochlorperazine SUPP* [Compazine Supp*] 25 mg [place] Q12H PRN #12 supp PRN Reason: Nausea Patient Education Materials: Acute Nausea and Vomiting (ED) Referrals: Fan Parsons MD [Primary Care Provider] - Additional Instructions: use compazine every 12 hours as needed for nausea Drink small amounts of fluid as tolerated When able to eat follow BRAT diet: Bananas, rice, applesauce, toast Take Tylenol for pain as needed every 6 hours Follow up with primary within 5 days Return to ED if develop any new or worsening symptoms - Billing Disposition and Condition Condition: GOOD Disposition: Home
[2019-05-17 12:48] LABS: ABS Basophils 0.1 10^3/ul (0-0.2); ABS Eosinophils 0.1 10^3/ul (0-0.6); ABS Lymphocytes 2.5 10^3/ul (1.0-4.8); ABS Monocytes 1.1 10^3/ul (0-0.8); Eosinophil % 1.2 %; Hematocrit 34 % (35-47); Hemoglobin 10.6 g/dL (12.0-16.0); Lymphocyte % 23.5 %; Mean Corpuscular HGB Conc 32 g/dL (31-36); Mean Corpuscular Hemoglobin 23 pg (27-31); Mean Corpuscular Volume 75 fL (80-97); Mean Platelet Volume 7.7 fL (7.4-10.4); Platelet Count 268 10^3/uL (150-450); Red Blood Count 4.54 10^6 /uL (3.70-4.87); Red Cell Distribution Width 17 % (10-15); White Blood Count 10.8 10^3/uL (3.5-10.8)
[2019-05-17 12:53] LABS: Albumin 3.9 g/dL (3.2-5.2); Albumin/Globulin Ratio 1.2 (1-3); BUN/Creatinine Ratio 18.6 (8-20); C Reactive Protein 4.48 mg/L (<8.01); Calcium 9.6 mg/dL (8.6-10.3); EGFR African American 57.3 (>60); EGFR Non-African American 47.3 (>60); Globulin 3.3 g/dL (2-4); Magnesium 1.9 mg/dL (1.9-2.7); Potassium 3.6 mmol/L (3.5-5.0); Total Bilirubin 0.7 mg/dL (0.2-1.0); Total Protein 7.2 g/dL (6.4-8.9)
[2019-05-17] MEDS ORDERED: Al Hydrox/Mg Hydrox/Simet LIQ* 30 ML UDC PO ONE (13:36)
[2019-05-17] MEDS ORDERED: Lidocaine 2% VISCOUS* 15 ML UDC PO ONE (13:36)
[2019-05-17 13:54] LABS: Urine Appearance Clear; Urine Bilirubin Negative (Negative); Urine Blood Negative (Negative); Urine Color Yellow; Urine Glucose Negative (Negative); Urine Ketones Negative (Negative); Urine Nitrite Negative (Negative); Urine Protein 2+(100 mg/dL) (Negative); Urine Specific Gravity 1.012 (1.010-1.030); Urine Urobilinogen Negative (Negative)
[2019-05-17] MEDS ORDERED: Metoclopramide TAB* 10 MG PO ONE (14:01)
[2019-05-17 14:04] LABS: Urine Bacteria Absent (Absent); Urine Red Blood Cell Absent (Absent); Urine Squamous Epithelial Cell Present (Absent); Urine White Blood Cell Trace(0-5/hpf) (Absent)
[2019-05-17 14:41] VITALS: BP 0/0
== END 2019-05-17 14:39 | disposition home or self-care (01) ==
LOC: ED 11:45
DX: R11.2 Nausea with vomiting, unspecified (principal); E11.9 Type 2 diabetes mellitus without complications; Z79.4 Long term (current) use of insulin; Z21 Asymptomatic human immunodeficiency virus [HIV] infection status; E78.00 Pure hypercholesterolemia, unspecified; I10 Essential (primary) hypertension; J44.9 Chronic obstructive pulmonary disease, unspecified; K21.9 Gastro-esophageal reflux disease without esophagitis; Z79.899 Other long term (current) drug therapy; F39 Unspecified mood [affective] disorder; E11.8 Type 2 diabetes mellitus with unspecified complications; R11.0 Nausea
CPT/HCPCS: 36415; 80053; 81003; 81015; 83690; 83735; 85025; 86140; 87086; 96372; 99282; A9270-GY; J2405

== ENCOUNTER 2019-05-17 16:07 | Emergency (ER) | payer MEDICARE, MEDICAID ==
--- NOTE | 2019-05-17 16:40 | ED ---
Complex/Multi-Sys Presentation - HPI Summary HPI Summary: 73 year old F presenting to [facility] with a chief complaint of nausea since 1 month ago. The patient rates the pain 0/10 in severity. Symptoms aggravated by nothing. Symptoms alleviated by nothing. The patient was seen here earlier today for the same symptoms and was discharged. Patient reports that she was choking on phlegm in the waiting room which is why she was sticking her fingers down her throat. She denies any fever or cough. Medication list reviewed. Allergy list reviewed. Home Medications Medication Instructions Recorded Confirmed Type Chlorthalidone TAB* [Hygroton TAB*] 50 mg PO DAILY 02/07/13 05/17/19 History Lisinopril TAB* [Prinivil TAB 10 40 mg PO DAILY 02/07/13 05/17/19 History MG*] Simvastatin TAB(NF) [Zocor 20 MG 20 mg PO DAILY 02/07/13 05/17/19 History (NF)] ValACYclovir (*) [Valtrex 1 GM(*)] 1 gm PO DAILY 06/18/15 05/17/19 History Diclofenac 1% GEL (NF) [Voltaren 2 grams TOPICAL QID PRN 07/31/15 05/17/19 History 1% GEL (NF)] Insulin GLARGINE(*) [Lantus 100 60 units SUBCUT BID 11/14/16 05/17/19 History units/ml 10 ml VIAL (*)] Albuterol HFA INHALER* [Ventolin 2 puff INH QID PRN 04/27/17 05/17/19 History HFA Inhaler*] Cyclosporine 0.05% OPHTH (NF) 0.05 % OP Q12H 04/27/17 05/17/19 History [Restasis 0.05% OPHTH] Famotidine TAB* [Pepcid 20 MG TAB*] 20 mg PO DAILY 04/27/17 05/17/19 History Insulin NPH Human Isophane 15 units IM BID AC 04/27/17 05/17/19 History [Humulin N Kwikpen 100 units/ml 3 ml x 5 Pens] QUEtiapine TAB* [Seroquel 25 MG 25 mg PO DAILY 04/27/17 05/17/19 History TAB*] Dicyclomine CAP* [Bentyl CAP*] 20 mg PO BID 07/20/17 05/17/19 History Potassium Chlor TAB* [Klor Con ER 10 meq PO DAILY #30 tab.er 12/25/17 05/17/19 Rx TAB 10 MEQ*] Pregabalin 25 mg CAP (*) [Lyrica 25 mg PO DAILY #30 cap MDD 25mg 12/25/17 Rx 25 mg CAP (*)] Ondansetron ODT TAB* [Zofran 4 MG 4 mg PO Q8H PRN #12 tab.odt 02/04/19 05/17/19 Rx Odt TAB*] Abacavir/Dolutegravir/Lamivudi 1 each PO DAILY 05/16/19 05/17/19 History [Triumeq 600-50-300 mg Tablet] Albuterol 2.5MG/3ML (0.083%)* 2.5 mg INH TID PRN 05/16/19 05/17/19 History [Ventolin 2.5 MG/3 ML NEB.LEWIS*] Cholecalciferol CAP/TAB(NF) 2,000 unit PO DAILY 05/16/19 05/17/19 History [Vitamin D3 CAP/TAB (NF)] Ciprofloxacin 0.3% OPTH.LEWIS* 1 drop BOTH EYES Q4H 05/16/19 05/17/19 History [Cipro 0.3% Opth*] Clotrimazole 1% CREAM* 1 applic TOPICAL BID 05/16/19 05/17/19 History [Clotrimazole 1%*] Crofelemer [Fulyzaq] 125 mg PO BID 05/16/19 05/17/19 History Cyclosporine 0.05% OPHTH (NF) 1 drop BOTH EYES DAILY 05/16/19 05/17/19 History [Restasis 0.05% OPHTH] Dulaglutide (NF) [Trulicity (NF)] 0.5 ml SUBCUT WEEKLY 05/16/19 05/17/19 History Ibuprofen TAB* [Motrin TAB* 800 MG] 800 mg PO TID PRN 05/16/19 05/17/19 History Insulin NPH Human Isophane 20 units SUBCUT .BEFORE DINNER 05/16/19 05/17/19 History [Humulin N Kwikpen 100 units/ml 3 ml x 5 Pens] Magnesium Oxide TAB* [MagOx 400 400 mg PO DAILY 05/16/19 05/17/19 History TAB*] Miconazole Nitrate [Miconazole-7] 1 applic VAGINAL BID 05/16/19 05/17/19 History Peg 400/Hypromellose/Glycerin 2 drop BOTH EYES QID 05/16/19 05/17/19 History [Visine Dry Eye Relief Drop] Polyethylene Glycol 3350* [Miralax 17 gm PO DAILY 05/16/19 05/17/19 History (17 GM DOSE GERARD)] Propylene Glycol/Peg 400/Pf 1 drop BOTH EYES QID 05/16/19 05/17/19 History [Systane 0.3-0.4% Eye Drops] QUEtiapine XR TAB* [Seroquel Xr 50 50 mg PO BID 05/16/19 05/17/19 History MG TAB*] Saliva Substitute (NF) [Biotene 1 spray MT BID 05/16/19 05/17/19 History Moisturizing Mouth (NF)] Sulfamethoxazole/Trimethoprim 1 each PO BID 05/16/19 05/17/19 History [Sulfamethoxazole-Tmp Ds Tablet] glipiZIDE [Glipizide Xl] 10 mg PO DAILY 05/16/19 05/17/19 History traMADol TAB* [Ultram*] 25 mg PO Q6HR PRN 05/16/19 05/17/19 History Prochlorperazine SUPP* [Compazine 25 mg WI Q12H PRN #12 supp 05/17/19 05/17/19 Rx Supp*] - History Of Current Complaint Chief Complaint: EDMentalHealth Time Seen by Provider: 05/17/19 16:30 Hx Obtained From: Patient Onset/Duration: Lasting Hours Timing: Constant Severity Currently: None Aggravating Factor(s): None Alleviating Factor(s): None Associated Signs And Symptoms: Negative: Cough, Fever - Allergies/Home Medications Allergies/Adverse Reactions: Allergies Allergy/AdvReac Type Severity Reaction Status Date / Time No Known Allergies Allergy Verified 05/15/19 12:38 Home Medications: Home Medications Chlorthalidone TAB* [Hygroton TAB*] 50 mg PO DAILY 02/07/13 [History Confirmed 05/17/19] Lisinopril TAB* [Prinivil TAB 10 MG*] 40 mg PO DAILY 02/07/13 [History Confirmed 05/17/19] Simvastatin TAB(NF) [Zocor 20 MG (NF)] 20 mg PO DAILY 02/07/13 [History Confirmed 05/17/19] ValACYclovir (*) [Valtrex 1 GM(*)] 1 gm PO DAILY 06/18/15 [History Confirmed ] Diclofenac 1% GEL (NF) [Voltaren 1% GEL (NF)] 2 grams TOPICAL QID PRN 07/31/15 [ History Confirmed 05/17/19] Insulin GLARGINE(*) [Lantus 100 units/ml 10 ml VIAL (*)] 60 units SUBCUT BID [History Confirmed 05/17/19] Albuterol HFA INHALER* [Ventolin HFA Inhaler*] 2 puff INH QID PRN 04/27/17 [ History Confirmed 05/17/19] Cyclosporine 0.05% OPHTH (NF) [Restasis 0.05% OPHTH] 0.05 % OP Q12H 04/27/17 [ History Confirmed 05/17/19] Famotidine TAB* [Pepcid 20 MG TAB*] 20 mg PO DAILY 04/27/17 [History Confirmed 05/17/19] Insulin NPH Human Isophane [Humulin N Kwikpen 100 units/ml 3 ml x 5 Pens] 15 units IM BID AC 04/27/17 [History Confirmed 05/17/19] QUEtiapine TAB* [Seroquel 25 MG TAB*] 25 mg PO DAILY 04/27/17 [History Confirmed 05/17/19] Dicyclomine CAP* [Bentyl CAP*] 20 mg PO BID 07/20/17 [History Confirmed 05/17/19 ] Potassium Chlor TAB* [Klor Con ER TAB 10 MEQ*] 10 meq PO DAILY #30 tab.er [Rx Confirmed 05/17/19] Pregabalin 25 mg CAP (*) [Lyrica 25 mg CAP (*)] 25 mg PO DAILY #30 cap MDD 25mg 12/25/17 [Rx Confirmed 05/17/19] Ondansetron ODT TAB* [Zofran 4 MG Odt TAB*] 4 mg PO Q8H PRN #12 tab.odt [Rx Confirmed 05/17/19] Abacavir/Dolutegravir/Lamivudi [Triumeq 600-50-300 mg Tablet] 1 each PO DAILY [History Confirmed 05/17/19] Albuterol 2.5MG/3ML (0.083%)* [Ventolin 2.5 MG/3 ML NEB.LEWIS*] 2.5 mg INH TID PRN 05/16/19 [History Confirmed 05/17/19] Cholecalciferol CAP/TAB(NF) [Vitamin D3 CAP/TAB (NF)] 2,000 unit PO DAILY [History Confirmed 05/17/19] Ciprofloxacin 0.3% OPTH.LEWIS* [Cipro 0.3% Opth*] 1 drop BOTH EYES Q4H 05/16/19 [ History Confirmed 05/17/19] Clotrimazole 1% CREAM* [Clotrimazole 1%*] 1 applic TOPICAL BID 05/16/19 [ History Confirmed 05/17/19] Crofelemer [Fulyzaq] 125 mg PO BID 05/16/19 [History Confirmed 05/17/19] Cyclosporine 0.05% OPHTH (NF) [Restasis 0.05% OPHTH] 1 drop BOTH EYES DAILY [History Confirmed 05/17/19] Dulaglutide (NF) [Trulicity (NF)] 0.5 ml SUBCUT WEEKLY 05/16/19 [History Confirmed 05/17/19] Ibuprofen TAB* [Motrin TAB* 800 MG] 800 mg PO TID PRN 05/16/19 [History Confirmed 05/17/19] Insulin NPH Human Isophane [Humulin N Kwikpen 100 units/ml 3 ml x 5 Pens] 20 units SUBCUT .BEFORE DINNER 05/16/19 [History Confirmed 05/17/19] Magnesium Oxide TAB* [MagOx 400 TAB*] 400 mg PO DAILY 05/16/19 [History Confirmed 05/17/19] Miconazole Nitrate [Miconazole-7] 1 applic VAGINAL BID 05/16/19 [History Confirmed 05/17/19] Peg 400/Hypromellose/Glycerin [Visine Dry Eye Relief Drop] 2 drop BOTH EYES QID 05/16/19 [History Confirmed 05/17/19] Polyethylene Glycol 3350* [Miralax (17 GM DOSE GERARD)] 17 gm PO DAILY 05/16/19 [ History Confirmed 05/17/19] Propylene Glycol/Peg 400/Pf [Systane 0.3-0.4% Eye Drops] 1 drop BOTH EYES QID [History Confirmed 05/17/19] QUEtiapine XR TAB* [Seroquel Xr 50 MG TAB*] 50 mg PO BID 05/16/19 [History Confirmed 05/17/19] Saliva Substitute (NF) [Biotene Moisturizing Mouth (NF)] 1 spray MT BID [History Confirmed 05/17/19] Sulfamethoxazole/Trimethoprim [Sulfamethoxazole-Tmp Ds Tablet] 1 each PO BID [History Confirmed 05/17/19] glipiZIDE [Glipizide Xl] 10 mg PO DAILY 05/16/19 [History Confirmed 05/17/19] traMADol TAB* [Ultram*] 25 mg PO Q6HR PRN 05/16/19 [History Confirmed 05/17/19] Prochlorperazine SUPP* [Compazine Supp*] 25 mg WI Q12H PRN #12 supp 05/17/19 [ Rx Confirmed 05/17/19] PMH/Surg Hx/FS Hx/Imm Hx Endocrine/Hematology History: Reports: Hx Diabetes - insulin dependent diabetic , Other Endocrine/Hematological Disorders - HIV POSITIVE Denies: Hx Thyroid Disease Cardiovascular History: Reports: Hx Hypercholesterolemia, Hx Hypertension, Other Cardiovascular Problems/Disorders - hyperlipidemia Denies: Hx Pacemaker/ICD Respiratory History: Reports: Hx Chronic Bronchitis, Hx Chronic Obstructive Pulmonary Disease (COPD) Denies: Hx Asthma GI History: Reports: Hx Gastroesophageal Reflux Disease Denies: Hx Ulcer History: Reports: Hx Kidney Infection, Other Problems/Disorders - hemorrhoids, herpes simplex Denies: Hx Kidney Stones, Hx Renal Disease Musculoskeletal History: Reports: Hx Arthritis Sensory History: Reports: Hx Cataracts - left eye, Hx Contacts or Glasses - readers, Hx Eye Prosthesis - Rt, Hx Vision Problem - RIGHT EYE PROSTHETIC, Other Sensory Impairments - no contacts - wears eyeglasses Denies: Hx Glaucoma, Hx Hearing Aid Opthamlomology History: Reports: Hx Cataracts - left eye, Hx Contacts or Glasses - readers, Hx Eye Prosthesis - Rt, Hx Vision Problem - RIGHT EYE PROSTHETIC, Other Sensory Impairments - no contacts - wears eyeglasses Denies: Hx Glaucoma Neurological History: Reports: Hx Nerve Disease - neuropathy, Other Neuro Impairments/Disorders - schizophrenia Psychiatric History: Reports: Hx Depression, Hx Schizophrenia, Hx Substance Abuse Denies: Hx Panic Disorder - Cancer History Hx Chemotherapy: No Hx Radiation Therapy: No - Surgical History Surgery Procedure, Year, and Place: right eye prosthetic - d/t trauma. right lower abdomen cyst removal Hx Anesthesia Reactions: No - Immunization History Date of Tetanus Vaccine: utd Date of Influenza Vaccine: 03/2017 Infectious Disease History: No Infectious Disease History: Reports: Hx Hepatitis - chronic HEP C, Hx Human Immunodeficiency Virus (HIV), Hx of Known/Suspected MRSA Denies: Traveled Outside the [place] in Last 30 Days - Family History Known Family History: Positive: Cardiac Disease, Hypertension - Social History Alcohol Use: None Alcohol Amount: pt refuses to answer questions Hx Substance Use: Yes Substance Use Comment - Amount & Last Used: pt refuses to answer questions Hx Tobacco Use: Yes Smoking Status (MU): Never Smoked Tobacco Type: Cigarettes Amount Used/How Often: 2 ppd for 20 yrs Have You Smoked in the Last Year: No Review of Systems Negative: Fever Negative: Cough Positive: Nausea All Other Systems Reviewed And Are Negative: Yes Physical Exam - Summary Physical Exam Summary: Constitutional: Well-developed, Well-nourished, Alert. (-) Distressed, laying in bed. Skin: Warm, Dry HENT: Normocephalic; Atraumatic Eyes: Conjunctiva normal Neck: Musculoskeletal ROM normal neck. (-) JVD, (-) Stridor, (-) Tracheal deviation Cardio: Rhythm regular, rate normal, Heart sounds normal; Intact distal pulses; Radial pulses are 2+ and symmetric. (-) Murmur Pulmonary/Chest wall: Effort normal. (-) Respiratory distress, (-) Wheezes, (-) Rales Abd: Soft, (-) tenderness, (-) Distension, (-) Guarding, (-) Rebound Musculoskeletal: (-) Edema Lymph: (-) Cervical adenopathy Neuro: Alert, Oriented x3 Psych: Mood and affect Normal Triage Information Reviewed: Yes Vital Signs On Initial Exam: Initial Vitals Temp Pulse Resp BP Pulse Ox 97.4 F 97 16 183/105 100 05/17/19 16:08 05/17/19 16:08 05/17/19 16:08 05/17/19 16:08 05/17/19 16:08 Vital Signs Reviewed: Yes Procedures - Sedation Patient Received Moderate/Deep Sedation with Procedure: No Diagnostics - Vital Signs Vital Signs Temp Pulse Resp BP Pulse Ox 05/17/19 16:08 97.4 F 97 16 183/105 100 - Laboratory Lab Statement: Any lab studies that have been ordered have been reviewed, and results considered in the medical decision making process. Complex Multi-Symp Course/Dx Course Of Treatment: Patient is here after being discharged and coming straight back to the ED. Patient was in the waiting room waiting for her Medicaid When she was attempting to make herself vomit. Patient's had multiple workups for her nausea and has never had actual vomiting while in the ED. Due to patient stated workups and return visits, a mental health evaluation was performed. Psychiatry does not think patient needs admission to the hospital and patient was discharged without any medicine. - Diagnoses Provider Diagnoses: Mood disorder Discharge ED - Sign-Out/Discharge Documenting (check all that apply): Patient Departure - Discharge - Discharge Plan Condition: Stable Disposition: HOME Referrals: Fan Parsons MD [Primary Care Provider] - Additional Instructions: Pt here because she said she needed nausea medicine. Pt was then discharged. Pt was then waiting in the ER waiting room for a Medicaid cab. She was waiting for about 2 hours, and continued to ask when it would be coming. Pt the started to say that she was nauseas. Pt was then seen trying to throw up in a bag in the waiting room. She stated it was because she had phlegm in her throat. "I told them 3 times I had phlegm in my throat." Pt denies any SI or HI. Patient is not in need of Mental Health Services at this time. IMPORTANT PHONE NUMBERS : [facility]: [phone] SUICIDE PREVENTION AND CRISIS LINE: [phone] [facility]: [phone] NATIONAL SUICIDE PREVENTION LIFE LINE: [phone] (1237) [facility]: [phone] Alcoholics Anonymous: [phone] [facility]: [phone] [facility] [place] [facility] [place]: [phone] [facility] [phone] [employer]: [phone], [employer] REGISTRATION CLERK: [phone] - Billing Disposition and Condition Condition: STABLE Disposition: Home - Attestation Statements Document Initiated by Gaston: Yes Documenting Scribe: Jeanine Leyva Provider For Whom Gaston is Documenting (Include Credential): Jorge Caldwell MD Scribe Attestation: Jeanine Hastings, scribed for Jorge Caldwell MD on 05/17/19 at 2128. Scribe Documentation Reviewed: Yes Provider Attestation: The documentation as recorded by the Jeanine quinonez accurately reflects the service I personally performed and the decisions made by me, Jorge Caldwell MD Status of Scribe Document: Viewed
[2019-05-17 19:20] VITALS: BP 129/77
== END 2019-05-17 19:19 | disposition home or self-care (01) ==
LOC: ED 16:07
DX: F39 Unspecified mood [affective] disorder (principal); E11.8 Type 2 diabetes mellitus with unspecified complications; R11.0 Nausea; Z21 Asymptomatic human immunodeficiency virus [HIV] infection status; Z79.4 Long term (current) use of insulin; Z79.899 Other long term (current) drug therapy
CPT/HCPCS: 99283

== ENCOUNTER 2019-05-18 14:10 | Emergency (ER) | payer MEDICARE, MEDICAID ==
--- NOTE | 2019-05-18 19:00 | ED ---
Nausea/Vomiting/Diarrhea HPI - HPI Summary HPI Summary: 73-year-old female presents to the emergency department today with a chief complaint of nausea and vomiting 1 week. Patient has been seen in this emergency department daily for the last 4 days with the same symptoms. Patient is currently in no acute distress and is quite harsh in conversation. Patient endorses 3 episodes of emesis since yesterday and states that her nausea medicines do not work and that only IV nausea medicines work. Patient is otherwise well and denies fever, chest pain, abdominal pain, rash, diarrhea, pain with urination, shortness of breath. - History of Current Complaint Chief Complaint: EDNauseaVomitDiarrh Stated Complaint: NAUSEA Time Seen by Provider: 05/18/19 18:35 Hx Obtained From: Patient Onset/Duration: Gradual Onset Timing: Constant Severity Initially: Moderate Severity Currently: Moderate Pain Intensity: 0 Nausea/Vomiting Presence: Nauseated, Vomiting Vomiting Frequency: Every 3-4 hours Nausea/Vomiting Duration: > 7 days - Allergies/Home Medications Allergies/Adverse Reactions: Allergies Allergy/AdvReac Type Severity Reaction Status Date / Time No Known Allergies Allergy Verified 05/15/19 12:38 Home Medications: Home Medications Chlorthalidone TAB* [Hygroton TAB*] 50 mg PO DAILY 02/07/13 [History Confirmed 05/18/19] Lisinopril TAB* [Prinivil TAB 10 MG*] 40 mg PO DAILY 02/07/13 [History Confirmed 05/18/19] Simvastatin TAB(NF) [Zocor 20 MG (NF)] 20 mg PO DAILY 02/07/13 [History Confirmed 05/18/19] ValACYclovir (*) [Valtrex 1 GM(*)] 1 gm PO DAILY 06/18/15 [History Confirmed ] Diclofenac 1% GEL (NF) [Voltaren 1% GEL (NF)] 2 grams TOPICAL QID PRN 07/31/15 [ History Confirmed 05/18/19] Insulin GLARGINE(*) [Lantus 100 units/ml 10 ml VIAL (*)] 60 units SUBCUT BID [History Confirmed 05/18/19] Albuterol HFA INHALER* [Ventolin HFA Inhaler*] 2 puff INH QID PRN 04/27/17 [ History Confirmed 05/18/19] Cyclosporine 0.05% OPHTH (NF) [Restasis 0.05% OPHTH] 0.05 % OP Q12H 04/27/17 [ History Confirmed 05/18/19] Famotidine TAB* [Pepcid 20 MG TAB*] 20 mg PO DAILY 04/27/17 [History Confirmed 05/18/19] Insulin NPH Human Isophane [Humulin N Kwikpen 100 units/ml 3 ml x 5 Pens] 15 units IM BID AC 04/27/17 [History Confirmed 05/18/19] QUEtiapine TAB* [Seroquel 25 MG TAB*] 25 mg PO DAILY 04/27/17 [History Confirmed 05/18/19] Dicyclomine CAP* [Bentyl CAP*] 20 mg PO BID 07/20/17 [History Confirmed 05/18/19 ] Potassium Chlor TAB* [Klor Con ER TAB 10 MEQ*] 10 meq PO DAILY #30 tab.er [Rx Confirmed 05/18/19] Pregabalin 25 mg CAP (*) [Lyrica 25 mg CAP (*)] 25 mg PO DAILY #30 cap MDD 25mg 12/25/17 [Rx Confirmed 05/18/19] Ondansetron ODT TAB* [Zofran 4 MG Odt TAB*] 4 mg PO Q8H PRN #12 tab.odt [Rx Confirmed 05/18/19] Abacavir/Dolutegravir/Lamivudi [Triumeq 600-50-300 mg Tablet] 1 each PO DAILY [History Confirmed 05/18/19] Albuterol 2.5MG/3ML (0.083%)* [Ventolin 2.5 MG/3 ML NEB.LEWIS*] 2.5 mg INH TID PRN 05/16/19 [History Confirmed 05/18/19] Cholecalciferol CAP/TAB(NF) [Vitamin D3 CAP/TAB (NF)] 2,000 unit PO DAILY [History Confirmed 05/18/19] Ciprofloxacin 0.3% OPTH.LEWIS* [Cipro 0.3% Opth*] 1 drop BOTH EYES Q4H 05/16/19 [ History Confirmed 05/18/19] Clotrimazole 1% CREAM* [Clotrimazole 1%*] 1 applic TOPICAL BID 05/16/19 [ History Confirmed 05/18/19] Crofelemer [Fulyzaq] 125 mg PO BID 05/16/19 [History Confirmed 05/18/19] Cyclosporine 0.05% OPHTH (NF) [Restasis 0.05% OPHTH] 1 drop BOTH EYES DAILY [History Confirmed 05/18/19] Dulaglutide (NF) [Trulicity (NF)] 0.5 ml SUBCUT WEEKLY 05/16/19 [History Confirmed 05/18/19] Ibuprofen TAB* [Motrin TAB* 800 MG] 800 mg PO TID PRN 05/16/19 [History Confirmed 05/18/19] Insulin NPH Human Isophane [Humulin N Kwikpen 100 units/ml 3 ml x 5 Pens] 20 units SUBCUT .BEFORE DINNER 05/16/19 [History Confirmed 05/18/19] Magnesium Oxide TAB* [MagOx 400 TAB*] 400 mg PO DAILY 05/16/19 [History Confirmed 05/18/19] Miconazole Nitrate [Miconazole-7] 1 applic VAGINAL BID 05/16/19 [History Confirmed 05/18/19] Peg 400/Hypromellose/Glycerin [Visine Dry Eye Relief Drop] 2 drop BOTH EYES QID 05/16/19 [History Confirmed 05/18/19] Polyethylene Glycol 3350* [Miralax (17 GM DOSE GERARD)] 17 gm PO DAILY 05/16/19 [ History Confirmed 05/18/19] Propylene Glycol/Peg 400/Pf [Systane 0.3-0.4% Eye Drops] 1 drop BOTH EYES QID [History Confirmed 05/18/19] QUEtiapine XR TAB* [Seroquel Xr 50 MG TAB*] 50 mg PO BID 05/16/19 [History Confirmed 05/18/19] Saliva Substitute (NF) [Biotene Moisturizing Mouth (NF)] 1 spray MT BID [History Confirmed 05/18/19] Sulfamethoxazole/Trimethoprim [Sulfamethoxazole-Tmp Ds Tablet] 1 each PO BID [History Confirmed 05/18/19] glipiZIDE [Glipizide Xl] 10 mg PO DAILY 05/16/19 [History Confirmed 05/18/19] traMADol TAB* [Ultram*] 25 mg PO Q6HR PRN 05/16/19 [History Confirmed 05/18/19] Prochlorperazine SUPP* [Compazine Supp*] 25 mg [place] Q12H PRN #12 supp 05/17/19 [ Rx Confirmed 05/18/19] Ondansetron ODT TAB* [Zofran 4 MG Odt TAB*] 4 mg PO Q6H PRN #12 tab.odt [Rx] PMH/Surg Hx/FS Hx/Imm Hx Endocrine/Hematology History: Reports: Hx Diabetes - insulin dependent diabetic , Other Endocrine/Hematological Disorders - HIV POSITIVE Denies: Hx Thyroid Disease Cardiovascular History: Reports: Hx Hypercholesterolemia, Hx Hypertension, Other Cardiovascular Problems/Disorders - hyperlipidemia Denies: Hx Pacemaker/ICD Respiratory History: Reports: Hx Chronic Bronchitis, Hx Chronic Obstructive Pulmonary Disease (COPD) Denies: Hx Asthma GI History: Reports: Hx Gastroesophageal Reflux Disease Denies: Hx Ulcer History: Reports: Hx Kidney Infection, Other Problems/Disorders - hemorrhoids, herpes simplex Denies: Hx Kidney Stones, Hx Renal Disease Musculoskeletal History: Reports: Hx Arthritis Sensory History: Reports: Hx Cataracts - left eye, Hx Contacts or Glasses - readers, Hx Eye Prosthesis - Rt, Hx Vision Problem - RIGHT EYE PROSTHETIC, Other Sensory Impairments - no contacts - wears eyeglasses Denies: Hx Glaucoma, Hx Hearing Aid Opthamlomology History: Reports: Hx Cataracts - left eye, Hx Contacts or Glasses - readers, Hx Eye Prosthesis - Rt, Hx Vision Problem - RIGHT EYE PROSTHETIC, Other Sensory Impairments - no contacts - wears eyeglasses Denies: Hx Glaucoma Neurological History: Reports: Hx Nerve Disease - neuropathy, Other Neuro Impairments/Disorders - schizophrenia Psychiatric History: Reports: Hx Depression, Hx Schizophrenia, Hx Substance Abuse Denies: Hx Eating Disorder, Hx Panic Disorder, Hx Post Traumatic Stress Disorder, Hx Bipolar Disorder, Hx Suicide Attempt - Cancer History Hx Chemotherapy: No Hx Radiation Therapy: No - Surgical History Surgery Procedure, Year, and Place: right eye prosthetic - d/t trauma. right lower abdomen cyst removal Hx Anesthesia Reactions: No - Immunization History Date of Tetanus Vaccine: utd Date of Influenza Vaccine: 03/2017 Infectious Disease History: No Infectious Disease History: Reports: Hx Hepatitis - chronic HEP C, Hx Human Immunodeficiency Virus (HIV), Hx of Known/Suspected MRSA Denies: Traveled Outside the [place] in Last 30 Days - Family History Known Family History: Positive: Cardiac Disease, Hypertension - Social History Alcohol Use: None Alcohol Amount: pt refuses to answer questions Hx Substance Use: Yes Substance Use Type: Reports: None Substance Use Comment - Amount & Last Used: pt refuses to answer questions Hx Tobacco Use: Yes Smoking Status (MU): Never Smoked Tobacco Type: Cigarettes Amount Used/How Often: 2 ppd for 20 yrs Have You Smoked in the Last Year: No Review of Systems Constitutional: Negative Eyes: Negative ENT: Negative Cardiovascular: Negative Respiratory: Negative Positive: Vomiting, Nausea. Negative: Abdominal Pain, Diarrhea Genitourinary: Negative Musculoskeletal: Negative Skin: Negative Neurological/Mental Status: Negative Positive: Anxious All Other Systems Reviewed And Are Negative: Yes Physical Exam Triage Information Reviewed: Yes Vital Signs On Initial Exam: Initial Vitals Temp Pulse Resp BP Pulse Ox 98.0 F 95 16 169/88 97 05/18/19 14:16 05/18/19 14:16 05/18/19 14:16 05/18/19 14:16 05/18/19 14:16 Vital Signs Reviewed: Yes Appearance: Positive: Well-Appearing, No Pain Distress, Well-Nourished Skin: Positive: Warm, Skin Color Reflects Adequate Perfusion Eyes: Positive: EOMI, GEOFF ENT: Positive: Hearing grossly normal Respiratory/Lung Sounds: Positive: Clear to Auscultation, Breath Sounds Present Cardiovascular: Positive: RRR, S1, S2 Abdomen Description: Positive: Nontender, Soft Bowel Sounds: Positive: Present Musculoskeletal: Positive: Strength/ROM Intact Neurological: Positive: Sensory/Motor Intact, Alert, Oriented to Person Place, Time, Normal Gait, Facial Symmetry, Speech Normal Psychiatric: Positive: Normal, Affect/Mood Appropriate AVPU Assessment: Alert Procedures - Sedation Patient Received Moderate/Deep Sedation with Procedure: No Diagnostics - Vital Signs Vital Signs Temp Pulse Resp BP Pulse Ox 05/18/19 16:19 98.4 F 95 18 204/95 100 05/18/19 14:16 98.0 F 95 16 169/88 97 - Laboratory Result Diagrams: 05/18/19 19:42 05/18/19 19:42 Lab Statement: Any lab studies that have been ordered have been reviewed, and results considered in the medical decision making process. Naus/Vom/Diarrhea Course/Dx - Course Course Of Treatment: Patient was evaluated in the emergency department today for nausea. Vitals noted and stable. Patient was given 4 mg IV Zofran for nausea. Laboratory studies show white blood cells 12.6, mild chronic anemia, blood glucose 169, troponin 0.03. Laboratory studies are not changed when compared to prior studies done in the last 2 days. Patients troponin is chronically elevated and this is not considered pathologic. CT of the abdomen and pelvis with contrast returned showing gallstones with no evidence of cholecystitis, cirrhotic liver. There appeared to be no acute pathology requiring intervention at this time or to explain patient's nausea. Patient discharged with outpatient follow-up. - Differential Dx/Diagnosis Differential Diagnoses - Female: Bowel Obstruction, Constipation, Enterocolitis , Gastritis Provider Diagnosis: Nausea Condition At Discharge: Stable Discharge ED - Sign-Out/Discharge Documenting (check all that apply): Patient Departure - Discharge Plan Condition: Stable Disposition: HOME Prescriptions: Ondansetron ODT TAB* [Zofran 4 MG Odt TAB*] 4 mg PO Q6H PRN #12 tab.odt PRN Reason: Nausea Patient Education Materials: Acute Nausea and Vomiting (ED) Referrals: [facility] [Outside] - 3 Days Additional Instructions: There appears to be no acute medical pathology requiring intervention at this time. Please follow up with your primary care provider in 2-3 days for further evaluation and management. Please return to this emergency Department immediately should you develop any new or worsening symptoms. - Billing Disposition and Condition Condition: STABLE Disposition: Home
[2019-05-18] MEDS: Ondansetron INJ* 2 MG/ML VIAL IV ONE (19:21)
[2019-05-18 20:07] LABS: ALT 14 U/L (7-52); AST 20 U/L (13-39); Albumin 3.9 g/dL (3.2-5.2); Alkaline Phosphatase 113 U/L (34-104); Anion Gap 7 mmol/L (2-11); BUN/Creatinine Ratio 16.5 (8-20); Blood Urea Nitrogen 18 mg/dL (6-24); CO2 Carbon Dioxide 30 mmol/L (22-32); Calcium 9.8 mg/dL (8.6-10.3); Chloride 99 mmol/L (101-111); EGFR African American 59.7 (>60); EGFR Non-African American 49.3 (>60); Globulin 3.8 g/dL (2-4); Glucose 169 mg/dL (70-100); Potassium 3.7 mmol/L (3.5-5.0); Sodium 136 mmol/L (135-145); Total Protein 7.7 g/dL (6.4-8.9)
[2019-05-18] MEDS: Iodixanol* (CONTRAST) 320 MG/ML 100 ML SDV IV ONE (20:08)
[2019-05-18 20:12] LABS: ABS Basophils 0.1 10^3/ul (0-0.2); ABS Eosinophils 0.1 10^3/ul (0-0.6); ABS Lymphocytes 2.3 10^3/ul (1.0-4.8); ABS Monocytes 0.9 10^3/ul (0-0.8); ABS Neutrophils 9.3 10^3/ul (1.5-7.7); Eosinophil % 0.6 %; Hematocrit 32 % (35-47); Hemoglobin 10.1 g/dL (12.0-16.0); Lymphocyte % 17.9 %; Mean Corpuscular HGB Conc 32 g/dL (31-36); Mean Corpuscular Hemoglobin 23 pg (27-31); Mean Corpuscular Volume 73 fL (80-97); Mean Platelet Volume 7.7 fL (7.4-10.4); Platelet Count 292 10^3/uL (150-450); Red Cell Distribution Width 17 % (10-15); White Blood Count 12.6 10^3/uL (3.5-10.8)
[2019-05-18 20:17] LABS: Troponin I 0.03 ng/mL (<0.03)
[2019-05-18 20:55] VITALS: BP 204/110
[2019-05-18] MEDS: Metoclopramide TAB* 10 MG PO ONE (21:02)
[2019-05-18] MEDS: NS 0.9% 1000 ML** 1,000 ML IV ONE (21:09)
[2019-05-18] MEDS: Lisinopril TAB* 10 MG PO ONE (21:25)
== END 2019-05-18 20:51 | disposition home or self-care (01) ==
LOC: ED 14:10
DX: R11.0 Nausea (principal); K80.80 Other cholelithiasis without obstruction; E11.9 Type 2 diabetes mellitus without complications; E78.00 Pure hypercholesterolemia, unspecified; I10 Essential (primary) hypertension; E78.5 Hyperlipidemia, unspecified; J44.9 Chronic obstructive pulmonary disease, unspecified; K21.9 Gastro-esophageal reflux disease without esophagitis; F32.9 Major depressive disorder, single episode, unspecified; Z21 Asymptomatic human immunodeficiency virus [HIV] infection status; Z87.891 Personal history of nicotine dependence; Z79.4 Long term (current) use of insulin; Z79.899 Other long term (current) drug therapy
CPT/HCPCS: 36415; 74177; 80053; 84484; 85025; 96374; 99282; A9270-GY; J2405; Q9967

== ENCOUNTER 2019-06-09 12:35 | Emergency (ER) | payer MEDICARE, MEDICAID ==
[2019-06-09] MEDS ORDERED: Al Hydrox/Mg Hydrox/Simet LIQ* 30 ML UDC PO ONE (12:42)
[2019-06-09] MEDS ORDERED: Lidocaine 2% VISCOUS* 15 ML UDC PO ONE (12:42)
--- NOTE | 2019-06-09 12:44 | ED ---
GI/ HPI - HPI Summary HPI Summary: Patient is a 73 y/o F presenting to the ED via EMS for a chief complaint of intermittent nausea that began on 06/08/19. Patient denies abdominal pain, vomiting, diarrhea, chest pain, or shortness of breath. Typically, Pepto-Bismol alleviates her nausea. No aggravating factors are reported. PMHx is significant for DM, HTN, and HLD. Patient has had several visits to [facility] in the past for the same symptoms. - History of Current Complaint Chief Complaint: EDNauseaVomitDiarrh Time Seen by Provider: 06/09/19 12:36 Stated Complaint: NAUSEA PER EMS Hx Obtained From: Patient Onset/Duration: Atraumatic, Still Present Timing: Intermittent, Lasting Hours Severity: Mild Current Severity: None Pain Intensity: 2 Associated Signs and Symptoms: Positive: Nausea. Negative: Vomiting, Diarrhea, Abdominal Pain, Chest Pain Aggravating Factor(s): Nothing Alleviating Factor(s): Medication - Pepto-Bismol - Additional Pertinent History Primary Care Physician: TATI - Allergy/Home Medications Allergies/Adverse Reactions: Allergies Allergy/AdvReac Type Severity Reaction Status Date / Time No Known Allergies Allergy Verified 06/09/19 12:39 Home Medications: Home Medications Chlorthalidone TAB* [Hygroton TAB*] 50 mg PO DAILY 02/07/13 [History Confirmed 06/09/19] Lisinopril TAB* [Prinivil TAB 10 MG*] 40 mg PO DAILY 02/07/13 [History Confirmed 06/09/19] Simvastatin TAB(NF) [Zocor 20 MG (NF)] 20 mg PO DAILY 02/07/13 [History Confirmed 06/09/19] ValACYclovir (*) [Valtrex 1 GM(*)] 1 gm PO DAILY 06/18/15 [History Confirmed 11/19] Insulin GLARGINE(*) [Lantus 100 units/ml 10 ml VIAL (*)] 60 units SUBCUT BID [History Confirmed 06/09/19] Albuterol HFA INHALER* [Ventolin HFA Inhaler*] 2 puff INH QID PRN 04/27/17 [ History Confirmed 06/09/19] Famotidine TAB* [Pepcid 20 MG TAB*] 20 mg PO DAILY 04/27/17 [History Confirmed 06/09/19] Insulin NPH Human Isophane [Humulin N Kwikpen 100 units/ml 3 ml x 5 Pens] 15 units IM BID AC 04/27/17 [History Confirmed 06/09/19] QUEtiapine TAB* [Seroquel 25 MG TAB*] 25 mg PO DAILY 04/27/17 [History Confirmed 06/09/19] Dicyclomine CAP* [Bentyl CAP*] 20 mg PO BID 07/20/17 [History Confirmed 06/09/19 ] Cholecalciferol CAP/TAB(NF) [Vitamin D3 CAP/TAB (NF)] 2,000 unit PO DAILY [History Confirmed 06/09/19] Clotrimazole 1% CREAM* [Clotrimazole 1%*] 1 applic TOPICAL BID 05/16/19 [ History Confirmed 06/09/19] Cyclosporine 0.05% OPHTH (NF) [Restasis 0.05% OPHTH] 1 drop BOTH EYES DAILY [History Confirmed 06/09/19] Dulaglutide (NF) [Trulicity (NF)] 0.5 ml SUBCUT WEEKLY 05/16/19 [History Confirmed 06/09/19] Ibuprofen TAB* [Motrin TAB* 800 MG] 800 mg PO TID PRN 05/16/19 [History Confirmed 06/09/19] Insulin NPH Human Isophane [Humulin N Kwikpen 100 units/ml 3 ml x 5 Pens] 20 units SUBCUT .BEFORE DINNER 05/16/19 [History Confirmed 06/09/19] Magnesium Oxide TAB* [MagOx 400 TAB*] 400 mg PO DAILY 05/16/19 [History Confirmed 06/09/19] Miconazole Nitrate [Miconazole-7] 1 applic VAGINAL BID 05/16/19 [History Confirmed 06/09/19] QUEtiapine XR TAB* [Seroquel Xr 50 MG TAB*] 50 mg PO BID 05/16/19 [History Confirmed 06/09/19] Saliva Substitute (NF) [Biotene Moisturizing Mouth (NF)] 1 spray MT BID [History Confirmed 06/09/19] Abacavir/Dolutegravir/Lamivudi [Triumeq 600-50-300 mg Tablet] 1 tab PO DAILY 11/19 [History Confirmed 06/09/19] Bismuth Subsalicylate [Pepto-Bismol] 525 mg PO Q6HR #1 oral.susp 06/09/19 [Rx] Crofelemer [Mytesi] 125 mg PO BID 06/09/19 [History Confirmed 06/09/19] Estradiol VAG CM (NF) [Estrace VAG CM (NF)] 1 applic VAGINAL WEEKLY 06/09/19 [ History Confirmed 06/09/19] Loperamide CAP* [Imodium CAP*] 2 mg PO BID 06/09/19 [History Confirmed 06/09/19] Mupirocin 2% OINT* [Bactroban 2 % Oint*] 1 applic TOPICAL BID 06/09/19 [History Confirmed 06/09/19] Potassium Chlor TAB* [Klor Con ER TAB 10 MEQ*] 20 meq PO DAILY 06/09/19 [ History Confirmed 06/09/19] Pregabalin [Lyrica] 75 mg PO BID 06/09/19 [History Confirmed 06/09/19] glipiZIDE TAB.XL* [Glucotrol XL*] 10 mg PO DAILY 06/09/19 [History Confirmed 11/19] PMH/Surg Hx/FS Hx/Imm Hx Previously Healthy: Yes Endocrine/Hematology History: Reports: Hx Diabetes - insulin dependent diabetic , Other Endocrine/Hematological Disorders - HIV POSITIVE Denies: Hx Thyroid Disease Cardiovascular History: Reports: Hx Hypercholesterolemia, Hx Hypertension, Other Cardiovascular Problems/Disorders - hyperlipidemia Denies: Hx Pacemaker/ICD Respiratory History: Reports: Hx Chronic Bronchitis, Hx Chronic Obstructive Pulmonary Disease (COPD) Denies: Hx Asthma GI History: Reports: Hx Gastroesophageal Reflux Disease Denies: Hx Ulcer History: Reports: Hx Kidney Infection, Other Problems/Disorders - hemorrhoids, herpes simplex Denies: Hx Kidney Stones, Hx Renal Disease Musculoskeletal History: Reports: Hx Arthritis Sensory History: Reports: Hx Cataracts - left eye, Hx Contacts or Glasses - readers, Hx Eye Prosthesis - Rt, Hx Vision Problem - RIGHT EYE PROSTHETIC, Other Sensory Impairments - no contacts - wears eyeglasses Denies: Hx Glaucoma, Hx Hearing Aid Opthamlomology History: Reports: Hx Cataracts - left eye, Hx Contacts or Glasses - readers, Hx Eye Prosthesis - Rt, Hx Vision Problem - RIGHT EYE PROSTHETIC, Other Sensory Impairments - no contacts - wears eyeglasses Denies: Hx Glaucoma Neurological History: Reports: Hx Nerve Disease - neuropathy, Other Neuro Impairments/Disorders - schizophrenia Psychiatric History: Reports: Hx Depression, Hx Schizophrenia, Hx Substance Abuse Denies: Hx Eating Disorder, Hx Panic Disorder, Hx Post Traumatic Stress Disorder, Hx Bipolar Disorder, Hx Suicide Attempt - Cancer History Hx Chemotherapy: No Hx Radiation Therapy: No - Surgical History Surgical History: Yes Surgery Procedure, Year, and Place: right eye prosthetic - d/t trauma. right lower abdomen cyst removal Hx Anesthesia Reactions: No - Immunization History Date of Tetanus Vaccine: utd Date of Influenza Vaccine: 03/2017 Infectious Disease History: Yes Infectious Disease History: Reports: Hx Hepatitis - chronic HEP C, Hx Human Immunodeficiency Virus (HIV), Hx of Known/Suspected MRSA Denies: Traveled Outside the [place] in Last 30 Days - Family History Known Family History: Positive: Cardiac Disease, Hypertension - Social History Occupation: Retired Lives: With Family Alcohol Use: None Alcohol Amount: pt refuses to answer questions Hx Substance Use: No Substance Use Type: Reports: None Substance Use Comment - Amount & Last Used: pt refuses to answer questions Hx Tobacco Use: Yes Smoking Status (MU): Never Smoked Tobacco Type: Cigarettes Amount Used/How Often: 2 ppd for 20 yrs Have You Smoked in the Last Year: No Review of Systems Negative: Chest Pain Negative: Shortness Of Breath Positive: Nausea. Negative: Abdominal Pain, Vomiting, Diarrhea All Other Systems Reviewed And Are Negative: Yes Physical Exam - Summary Physical Exam Summary: Constitutional: Well-developed, Obese, Alert. (-) Distressed Skin: Warm, Dry HENT: Normocephalic; Atraumatic Eyes: Conjunctiva normal Neck: Musculoskeletal ROM normal neck. (-) JVD, (-) Stridor, (-) Tracheal deviation Cardio: Rhythm regular, rate normal, Heart sounds normal; Intact distal pulses; The pedal pulses are 2+ and symmetric. Radial pulses are 2+ and symmetric. (-) Murmur Pulmonary/Chest wall: Effort normal. (-) Respiratory distress, (-) Wheezes, (-) Rales Abd: Soft, (-) tenderness, (-) Distension, (-) Guarding, (-) Rebound Musculoskeletal: (-) Edema Lymph: (-) Cervical adenopathy Neuro: Alert, Oriented x3 Psych: Mood and affect Normal Triage Information Reviewed: Yes Vital Signs On Initial Exam: Initial Vitals Temp Pulse Resp BP Pulse Ox 97.8 F 87 18 178/107 100 06/09/19 12:37 06/09/19 12:37 06/09/19 12:37 06/09/19 12:37 06/09/19 12:37 Vital Signs Reviewed: Yes Procedures - Sedation Patient Received Moderate/Deep Sedation with Procedure: No Diagnostics - Vital Signs Vital Signs Temp Pulse Resp BP Pulse Ox 06/09/19 12:37 97.8 F 87 18 178/107 100 - Laboratory Result Diagrams: 06/09/19 13:19 06/09/19 13:19 Lab Statement: Any lab studies that have been ordered have been reviewed, and results considered in the medical decision making process. GIGU Course/Dx - Course Course Of Treatment: Patient is a 73 y/o F presenting to the ED via EMS for a chief complaint of intermittent nausea that began on 06/08/19. Patient denies abdominal pain, vomiting, diarrhea, chest pain, or shortness of breath. Typically, Pepto-Bismol alleviates her nausea. PMHx is significant for DM, HTN, and HLD. On exam, obese female. In the ED course, patient was given Maalox 30 ml PO, Lidocaine 15 ml PO, and potassium chloride 40 meq PO. Laboratory abnormal findings: potassium 2.9, chloride 95, creatinine 1.32. All other abnormal lab results are not pertinent to current cc. Patient will be discharged with a diagnosis of vomiting. Follow up with PCP in 2-3 days. - Diagnoses Provider Diagnoses: Vomiting Discharge ED - Sign-Out/Discharge Documenting (check all that apply): Patient Departure - Discharge - Discharge Plan Condition: Stable Disposition: HOME Patient Education Materials: Acute Nausea and Vomiting (ED) Referrals: Fan Parsons MD [Primary Care Provider] - 2 Days Additional Instructions: RETURN TO THE EMERGENCY DEPARTMENT FOR CHANGING OR WORSENING SYMPTOMS. Follow up with your primary care physician in 2-3 days. - Billing Disposition and Condition Condition: STABLE Disposition: Home - Attestation Statements Document Initiated by Scribe: Yes Documenting Scribe: Jazmin Graham Provider For Whom Scribe is Documenting (Include Credential): Nirmal Godfrey, Scribe Attestation: Jazmin Hastings scribed for Nirmal Godfrey DO on 06/09/19 at 1727. Scribe Documentation Reviewed: Yes Provider Attestation: The documentation as recorded by the scribe, Jazmin Graham accurately reflects the service I personally performed and the decisions made by me, Nirmal Godfrey DO Status of Scribe Document: Viewed
[2019-06-09 13:44] LABS: BUN/Creatinine Ratio 14.4 (8-20); Calcium 9.9 mg/dL (8.6-10.3); EGFR African American 47.9 (>60); EGFR Non-African American 39.6 (>60); Potassium 2.9 mmol/L (3.5-5.0)
[2019-06-09] MEDS ORDERED: Potassium Chloride* LIQUID 20 MEQ/15 ML UDC PO ONE (13:53)
--- OUTSIDE RECORDS SUMMARY | 2019-06-09 13:57 | XMS REPORT ---
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 Clinician (SIG) Name Name No Known No Known No None None None Medications Medications For This For This Patient Patient Procedures This patient has no known procedures. Results This patient has no known results.
--- OUTSIDE RECORDS SUMMARY | 2019-06-09 13:57 | XMS REPORT ---
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 Clinician (SIG) Name Name No Known No Known No None None None Medications Medications For This For This Patient Patient Procedures This patient has no known procedures. Results This patient has no known results.
[2019-06-09 14:16] LABS: Hematocrit 32 % (35-47); Hemoglobin 10.4 g/dL (12.0-16.0); Mean Corpuscular HGB Conc 32 g/dL (31-36); Mean Corpuscular Hemoglobin 23 pg (27-31); Mean Corpuscular Volume 72 fL (80-97); Mean Platelet Volume 8.1 fL (7.4-10.4); Platelet Count 203 10^3/uL (150-450); Red Blood Count 4.47 10^6 /uL (3.70-4.87); Red Cell Distribution Width 18 % (10-15); White Blood Count 7.4 10^3/uL (3.5-10.8)
[2019-06-09 15:26] VITALS: BP 0/0
[2019-06-09 15:27] LABS: ABS Basophils 0.1 10^3/ul (0-0.2); ABS Eosinophils 0.1 10^3/ul (0-0.6); ABS Lymphocytes 2.1 10^3/ul (1.0-4.8); ABS Monocytes 0.8 10^3/ul (0-0.8); ABS Neutrophils 4.3 10^3/ul (1.5-7.7); Lymphocyte % 28.4 %
[2019-06-09 15:28] LABS: Microcytosis 2+
== END 2019-06-09 15:24 | disposition home or self-care (01) ==
LOC: ED 12:35
DX: R11.10 Vomiting, unspecified (principal); E11.9 Type 2 diabetes mellitus without complications; E78.00 Pure hypercholesterolemia, unspecified; I10 Essential (primary) hypertension; E78.5 Hyperlipidemia, unspecified; Z79.4 Long term (current) use of insulin; J44.9 Chronic obstructive pulmonary disease, unspecified; K21.9 Gastro-esophageal reflux disease without esophagitis; F32.9 Major depressive disorder, single episode, unspecified; F20.9 Schizophrenia, unspecified
CPT/HCPCS: 36415; 80048; 85025; 85060; 99282; A9270-GY

== ENCOUNTER 2019-06-09 15:56 | Emergency (ER) | payer MEDICARE, MEDICAID ==
[2019-06-09] MEDS ORDERED: Ondansetron ODT TAB* 4 MG PO ONE (16:30)
--- NOTE | 2019-06-09 16:30 | ED ---
GI/ HPI - HPI Summary HPI Summary: 73 year old female presents with vomiting after just being discharged an hour ago. She admits to bowel pain. She states there is nothing different than all the other times she's been seen for this compliant. She states that she does not have any medications at home. States she did not get anything from the pharmacy. States that in the past Pepto-Bismol and ibuprofen have worked. She denies any fevers. She was seen in the waiting room sticking her fingers down her throat. Denies any diarrhea constipation. she is passing gas. - History of Current Complaint Chief Complaint: EDNauseaVomitDiarrh Time Seen by Provider: 06/09/19 16:26 Stated Complaint: NAUSEA PER PT Pain Intensity: 10 - Additional Pertinent History Primary Care Physician: TATI - Allergy/Home Medications Allergies/Adverse Reactions: Allergies Allergy/AdvReac Type Severity Reaction Status Date / Time No Known Allergies Allergy Verified 06/09/19 12:39 Home Medications: Home Medications Chlorthalidone TAB* [Hygroton TAB*] 50 mg PO DAILY 02/07/13 [History Confirmed 06/09/19] Lisinopril TAB* [Prinivil TAB 10 MG*] 40 mg PO DAILY 02/07/13 [History Confirmed 06/09/19] Simvastatin TAB(NF) [Zocor 20 MG (NF)] 20 mg PO DAILY 02/07/13 [History Confirmed 06/09/19] ValACYclovir (*) [Valtrex 1 GM(*)] 1 gm PO DAILY 06/18/15 [History Confirmed 11/19] Insulin GLARGINE(*) [Lantus 100 units/ml 10 ml VIAL (*)] 60 units SUBCUT BID [History Confirmed 06/09/19] Albuterol HFA INHALER* [Ventolin HFA Inhaler*] 2 puff INH QID PRN 04/27/17 [ History Confirmed 06/09/19] Famotidine TAB* [Pepcid 20 MG TAB*] 20 mg PO DAILY 04/27/17 [History Confirmed 06/09/19] Insulin NPH Human Isophane [Humulin N Kwikpen 100 units/ml 3 ml x 5 Pens] 15 units IM BID AC 04/27/17 [History Confirmed 06/09/19] QUEtiapine TAB* [Seroquel 25 MG TAB*] 25 mg PO DAILY 04/27/17 [History Confirmed 06/09/19] Dicyclomine CAP* [Bentyl CAP*] 20 mg PO BID 07/20/17 [History Confirmed 06/09/19 ] Cholecalciferol CAP/TAB(NF) [Vitamin D3 CAP/TAB (NF)] 2,000 unit PO DAILY [History Confirmed 06/09/19] Clotrimazole 1% CREAM* [Clotrimazole 1%*] 1 applic TOPICAL BID 05/16/19 [ History Confirmed 06/09/19] Cyclosporine 0.05% OPHTH (NF) [Restasis 0.05% OPHTH] 1 drop BOTH EYES DAILY [History Confirmed 06/09/19] Dulaglutide (NF) [Trulicity (NF)] 0.5 ml SUBCUT WEEKLY 05/16/19 [History Confirmed 06/09/19] Ibuprofen TAB* [Motrin TAB* 800 MG] 800 mg PO TID PRN 05/16/19 [History Confirmed 06/09/19] Insulin NPH Human Isophane [Humulin N Kwikpen 100 units/ml 3 ml x 5 Pens] 20 units SUBCUT .BEFORE DINNER 05/16/19 [History Confirmed 06/09/19] Magnesium Oxide TAB* [MagOx 400 TAB*] 400 mg PO DAILY 05/16/19 [History Confirmed 06/09/19] Miconazole Nitrate [Miconazole-7] 1 applic VAGINAL BID 05/16/19 [History Confirmed 06/09/19] QUEtiapine XR TAB* [Seroquel Xr 50 MG TAB*] 50 mg PO BID 05/16/19 [History Confirmed 06/09/19] Saliva Substitute (NF) [Biotene Moisturizing Mouth (NF)] 1 spray MT BID [History Confirmed 06/09/19] Abacavir/Dolutegravir/Lamivudi [Triumeq 600-50-300 mg Tablet] 1 tab PO DAILY 11/19 [History Confirmed 06/09/19] Bismuth Subsalicylate [Pepto-Bismol] 525 mg PO Q6HR #1 oral.susp 06/09/19 [Rx] Crofelemer [Mytesi] 125 mg PO BID 06/09/19 [History Confirmed 06/09/19] Estradiol VAG CM (NF) [Estrace VAG CM (NF)] 1 applic VAGINAL WEEKLY 06/09/19 [ History Confirmed 06/09/19] Loperamide CAP* [Imodium CAP*] 2 mg PO BID 06/09/19 [History Confirmed 06/09/19] Mupirocin 2% OINT* [Bactroban 2 % Oint*] 1 applic TOPICAL BID 06/09/19 [History Confirmed 06/09/19] Potassium Chlor TAB* [Klor Con ER TAB 10 MEQ*] 20 meq PO DAILY 06/09/19 [ History Confirmed 06/09/19] Pregabalin [Lyrica] 75 mg PO BID 06/09/19 [History Confirmed 06/09/19] glipiZIDE TAB.XL* [Glucotrol XL*] 10 mg PO DAILY 06/09/19 [History Confirmed 11/19] PMH/Surg Hx/FS Hx/Imm Hx Endocrine/Hematology History: Reports: Hx Diabetes - insulin dependent diabetic , Other Endocrine/Hematological Disorders - HIV POSITIVE Denies: Hx Thyroid Disease Cardiovascular History: Reports: Hx Hypercholesterolemia, Hx Hypertension, Other Cardiovascular Problems/Disorders - hyperlipidemia Denies: Hx Pacemaker/ICD Respiratory History: Reports: Hx Chronic Bronchitis, Hx Chronic Obstructive Pulmonary Disease (COPD) Denies: Hx Asthma GI History: Reports: Hx Gastroesophageal Reflux Disease Denies: Hx Ulcer History: Reports: Hx Kidney Infection, Other Problems/Disorders - hemorrhoids, herpes simplex Denies: Hx Kidney Stones, Hx Renal Disease Musculoskeletal History: Reports: Hx Arthritis Sensory History: Reports: Hx Cataracts - left eye, Hx Contacts or Glasses - readers, Hx Eye Prosthesis - Rt, Hx Vision Problem - RIGHT EYE PROSTHETIC, Other Sensory Impairments - no contacts - wears eyeglasses Denies: Hx Glaucoma, Hx Hearing Aid Opthamlomology History: Reports: Hx Cataracts - left eye, Hx Contacts or Glasses - readers, Hx Eye Prosthesis - Rt, Hx Vision Problem - RIGHT EYE PROSTHETIC, Other Sensory Impairments - no contacts - wears eyeglasses Denies: Hx Glaucoma Neurological History: Reports: Hx Nerve Disease - neuropathy, Other Neuro Impairments/Disorders - schizophrenia Psychiatric History: Reports: Hx Depression, Hx Schizophrenia, Hx Substance Abuse Denies: Hx Eating Disorder, Hx Panic Disorder, Hx Post Traumatic Stress Disorder, Hx Bipolar Disorder, Hx Suicide Attempt - Cancer History Hx Chemotherapy: No Hx Radiation Therapy: No - Surgical History Surgery Procedure, Year, and Place: right eye prosthetic - d/t trauma. right lower abdomen cyst removal Hx Anesthesia Reactions: No - Immunization History Date of Tetanus Vaccine: utd Date of Influenza Vaccine: 03/2017 Infectious Disease History: No Infectious Disease History: Reports: Hx Hepatitis - chronic HEP C, Hx Human Immunodeficiency Virus (HIV), Hx of Known/Suspected MRSA Denies: Traveled Outside the [place] in Last 30 Days - Family History Known Family History: Positive: Cardiac Disease, Hypertension - Social History Alcohol Use: None Alcohol Amount: pt refuses to answer questions Hx Substance Use: No Substance Use Type: Reports: None Substance Use Comment - Amount & Last Used: pt refuses to answer questions Hx Tobacco Use: Yes Smoking Status (MU): Never Smoked Tobacco Type: Cigarettes Amount Used/How Often: 2 ppd for 20 yrs Have You Smoked in the Last Year: No Review of Systems Negative: Fever Negative: Chest Pain Negative: Shortness Of Breath Positive: Abdominal Pain, Vomiting, Nausea. Negative: Diarrhea All Other Systems Reviewed And Are Negative: Yes Physical Exam Triage Information Reviewed: Yes Vital Signs On Initial Exam: Initial Vitals Temp Pulse Resp BP Pulse Ox 97.2 F 88 16 189/99 100 06/09/19 16:03 06/09/19 16:03 06/09/19 16:03 06/09/19 16:03 06/09/19 16:03 Vital Signs Reviewed: Yes Appearance: Positive: Well-Appearing Skin: Positive: Warm, Dry Head/Face: Positive: Normal Head/Face Inspection Eyes: Positive: Normal, Conjunctiva Clear ENT: Positive: Pharynx normal Respiratory/Lung Sounds: Positive: Clear to Auscultation, Breath Sounds Present Cardiovascular: Positive: Normal, RRR Abdomen Description: Positive: Nontender, Soft Bowel Sounds: Positive: Present Musculoskeletal: Positive: Normal Neurological: Positive: Normal Psychiatric: Positive: Normal Procedures - Sedation Patient Received Moderate/Deep Sedation with Procedure: No Diagnostics - Vital Signs Vital Signs Temp Pulse Resp BP Pulse Ox 06/09/19 16:03 97.2 F 88 16 189/99 100 - Laboratory Lab Statement: Any lab studies that have been ordered have been reviewed, and results considered in the medical decision making process. GIGU Course/Dx - Course Course Of Treatment: 73 year old female presents with vomiting after just being discharged an hour ago. She admits to bowel pain. She states there is nothing different than all the other times she's been seen for this compliant. She states that she does not have any medications at home. States she did not get anything from the pharmacy. States that in the past Pepto-Bismol and ibuprofen have worked. She denies any fevers. She was seen in the waiting room sticking her fingers down her throat. Denies any diarrhea constipation. she is passing gas. On exam has a nontender abdomen. Vitals are stable. We'll send a prescription for Pepto-Bismol to the pharmacy. Patient is agreeable with such. Patient left the room prior to getting any treatment here to get her cab. - Diagnoses Differential Diagnoses - Female: Gastroenteritis (Viral), Gastroenteritis ( Bacterial), Vomiting Provider Diagnoses: Nausea Discharge ED - Sign-Out/Discharge Documenting (check all that apply): Patient Departure - Discharge Plan Condition: Good Disposition: HOME Prescriptions: Bismuth Subsalicylate [Pepto-Bismol] 525 mg PO Q6HR #1 oral.susp Patient Education Materials: Acute Nausea and Vomiting (ED) Referrals: Fan Parsons MD [Primary Care Provider] - Additional Instructions: you have not been found to have an emergency condition at this time take peptobismol 15ml every 6 hours for abd pain Follow up with primary within 5 days Return to Ed if develop any new or worsening symptoms - Billing Disposition and Condition Condition: GOOD Disposition: Home - Attestation Statements Provider Attestation: I was available for consult. This patient was seen by the [facility]. The patient was not presented to, seen by, or examined by me. -Alcon
[2019-06-09 16:33] VITALS: BP 000/00
== END 2019-06-09 16:31 | disposition home or self-care (01) ==
LOC: ED 15:56
DX: R11.0 Nausea (principal); E11.9 Type 2 diabetes mellitus without complications; Z79.4 Long term (current) use of insulin; E78.00 Pure hypercholesterolemia, unspecified; I10 Essential (primary) hypertension; E78.5 Hyperlipidemia, unspecified; K21.9 Gastro-esophageal reflux disease without esophagitis; R10.9 Unspecified abdominal pain; Z79.899 Other long term (current) drug therapy; Z21 Asymptomatic human immunodeficiency virus [HIV] infection status
CPT/HCPCS: 99281

== ENCOUNTER 2019-06-13 20:44 | Emergency (ER) | payer MEDICARE, MEDICAID ==
[2019-06-13] MEDS ORDERED: Ondansetron ODT TAB* 4 MG SL ONE (20:48)
--- NOTE | 2019-06-13 20:56 | ED ---
Nausea/Vomiting/Diarrhea HPI - HPI Summary HPI Summary: 73-year-old female presents to the emergency department with a chief complaint of nausea. Patient has been seen in this emergency department multiple times the last 2 months for the same reasons with a negative workup. Patient was given multiple prescriptions for antinausea medicines however she has failed to go her pharmacy to pick these up. Patient at this time is resting on hospital stretcher and is yelling at Hospital staff. Patient currently denies fever, chest pain, abdominal pain, pain with urination, diarrhea. Patient has not taking any medication prior to arrival for alleviation of her symptoms. Patient is agitated and does not cooperate with history and physical. - History of Current Complaint Stated Complaint: GENERAL PER EMS Hx Obtained From: Patient Onset/Duration: Gradual Onset, Still Present Timing: Constant Nausea/Vomiting Presence: Nauseated - Allergies/Home Medications Allergies/Adverse Reactions: Allergies Allergy/AdvReac Type Severity Reaction Status Date / Time No Known Allergies Allergy Verified 06/09/19 12:39 Home Medications: Home Medications Chlorthalidone TAB* [Hygroton TAB*] 50 mg PO DAILY 02/07/13 [History Confirmed 06/13/19] Lisinopril TAB* [Prinivil TAB 10 MG*] 40 mg PO DAILY 02/07/13 [History Confirmed 06/13/19] Simvastatin TAB(NF) [Zocor 20 MG (NF)] 20 mg PO DAILY 02/07/13 [History Confirmed 06/13/19] ValACYclovir (*) [Valtrex 1 GM(*)] 1 gm PO DAILY 06/18/15 [History Confirmed ] Insulin GLARGINE(*) [Lantus 100 units/ml 10 ml VIAL (*)] 60 units SUBCUT BID [History Confirmed 06/13/19] Albuterol HFA INHALER* [Ventolin HFA Inhaler*] 2 puff INH QID PRN 04/27/17 [ History Confirmed 06/13/19] Famotidine TAB* [Pepcid 20 MG TAB*] 20 mg PO DAILY 04/27/17 [History Confirmed 06/13/19] Insulin NPH Human Isophane [Humulin N Kwikpen 100 units/ml 3 ml x 5 Pens] 15 units IM BID AC 04/27/17 [History Confirmed 06/13/19] QUEtiapine TAB* [Seroquel 25 MG TAB*] 25 mg PO DAILY 04/27/17 [History Confirmed 06/13/19] Dicyclomine CAP* [Bentyl CAP*] 20 mg PO BID 07/20/17 [History Confirmed 06/13/19 ] Cholecalciferol CAP/TAB(NF) [Vitamin D3 CAP/TAB (NF)] 2,000 unit PO DAILY [History Confirmed 06/13/19] Clotrimazole 1% CREAM* [Clotrimazole 1%*] 1 applic TOPICAL BID 05/16/19 [ History Confirmed 06/13/19] Cyclosporine 0.05% OPHTH (NF) [Restasis 0.05% OPHTH] 1 drop BOTH EYES DAILY [History Confirmed 06/13/19] Dulaglutide (NF) [Trulicity (NF)] 0.5 ml SUBCUT WEEKLY 05/16/19 [History Confirmed 06/13/19] Ibuprofen TAB* [Motrin TAB* 800 MG] 800 mg PO TID PRN 05/16/19 [History Confirmed 06/13/19] Insulin NPH Human Isophane [Humulin N Kwikpen 100 units/ml 3 ml x 5 Pens] 20 units SUBCUT .BEFORE DINNER 05/16/19 [History Confirmed 06/13/19] Magnesium Oxide TAB* [MagOx 400 TAB*] 400 mg PO DAILY 05/16/19 [History Confirmed 06/13/19] Miconazole Nitrate [Miconazole-7] 1 applic VAGINAL BID 05/16/19 [History Confirmed 06/13/19] QUEtiapine XR TAB* [Seroquel Xr 50 MG TAB*] 50 mg PO BID 05/16/19 [History Confirmed 06/13/19] Saliva Substitute (NF) [Biotene Moisturizing Mouth (NF)] 1 spray MT BID [History Confirmed 06/13/19] Abacavir/Dolutegravir/Lamivudi [Triumeq 600-50-300 mg Tablet] 1 tab PO DAILY 11/19 [History Confirmed 06/13/19] Bismuth Subsalicylate [Pepto-Bismol] 525 mg PO Q6HR #1 oral.susp 06/09/19 [Rx Confirmed 06/13/19] Crofelemer [Mytesi] 125 mg PO BID 06/09/19 [History Confirmed 06/13/19] Estradiol VAG CM (NF) [Estrace VAG CM (NF)] 1 applic VAGINAL WEEKLY 06/09/19 [ History Confirmed 06/13/19] Loperamide CAP* [Imodium CAP*] 2 mg PO BID 06/09/19 [History Confirmed 06/13/19] Mupirocin 2% OINT* [Bactroban 2 % Oint*] 1 applic TOPICAL BID 06/09/19 [History Confirmed 06/13/19] Potassium Chlor TAB* [Klor Con ER TAB 10 MEQ*] 20 meq PO DAILY 06/09/19 [ History Confirmed 06/13/19] Pregabalin [Lyrica] 75 mg PO BID 06/09/19 [History Confirmed 06/13/19] glipiZIDE TAB.XL* [Glucotrol XL*] 10 mg PO DAILY 06/09/19 [History Confirmed ] PMH/Surg Hx/FS Hx/Imm Hx Endocrine/Hematology History: Reports: Hx Diabetes - insulin dependent diabetic , Other Endocrine/Hematological Disorders - HIV POSITIVE Denies: Hx Thyroid Disease Cardiovascular History: Reports: Hx Hypercholesterolemia, Hx Hypertension, Other Cardiovascular Problems/Disorders - hyperlipidemia Denies: Hx Pacemaker/ICD Respiratory History: Reports: Hx Chronic Bronchitis, Hx Chronic Obstructive Pulmonary Disease (COPD) Denies: Hx Asthma GI History: Reports: Hx Gastroesophageal Reflux Disease Denies: Hx Ulcer History: Reports: Hx Kidney Infection, Other Problems/Disorders - hemorrhoids, herpes simplex Denies: Hx Kidney Stones, Hx Renal Disease Musculoskeletal History: Reports: Hx Arthritis Sensory History: Reports: Hx Cataracts - left eye, Hx Contacts or Glasses - readers, Hx Eye Prosthesis - Rt, Hx Vision Problem - RIGHT EYE PROSTHETIC, Other Sensory Impairments - no contacts - wears eyeglasses Denies: Hx Glaucoma, Hx Hearing Aid Opthamlomology History: Reports: Hx Cataracts - left eye, Hx Contacts or Glasses - readers, Hx Eye Prosthesis - Rt, Hx Vision Problem - RIGHT EYE PROSTHETIC, Other Sensory Impairments - no contacts - wears eyeglasses Denies: Hx Glaucoma Neurological History: Reports: Hx Nerve Disease - neuropathy, Other Neuro Impairments/Disorders - schizophrenia Psychiatric History: Reports: Hx Depression, Hx Schizophrenia, Hx Substance Abuse Denies: Hx Eating Disorder, Hx Panic Disorder, Hx Post Traumatic Stress Disorder, Hx Bipolar Disorder, Hx Suicide Attempt - Cancer History Hx Chemotherapy: No Hx Radiation Therapy: No - Surgical History Surgery Procedure, Year, and Place: right eye prosthetic - d/t trauma. right lower abdomen cyst removal Hx Anesthesia Reactions: No - Immunization History Date of Tetanus Vaccine: utd Date of Influenza Vaccine: 03/2017 Infectious Disease History: Reports: Hx Hepatitis - chronic HEP C, Hx Human Immunodeficiency Virus (HIV), Hx of Known/Suspected MRSA - Family History Known Family History: Positive: Cardiac Disease, Hypertension - Social History Alcohol Use: None Alcohol Amount: pt refuses to answer questions Hx Substance Use: No Substance Use Type: Reports: None Substance Use Comment - Amount & Last Used: pt refuses to answer questions Hx Tobacco Use: Yes Smoking Status (MU): Never Smoked Tobacco Type: Cigarettes Amount Used/How Often: 2 ppd for 20 yrs Have You Smoked in the Last Year: No Review of Systems Constitutional: Negative Eyes: Negative ENT: Negative Cardiovascular: Negative Respiratory: Negative Positive: Nausea. Negative: Abdominal Pain, Vomiting, Diarrhea Genitourinary: Negative Musculoskeletal: Negative Skin: Negative Neurological/Mental Status: Negative Psychological: Normal All Other Systems Reviewed And Are Negative: Yes Physical Exam Triage Information Reviewed: Yes Vital Signs Reviewed: Yes Appearance: Positive: Well-Appearing, No Pain Distress, Well-Nourished Skin: Positive: Warm, Skin Color Reflects Adequate Perfusion Eyes: Positive: EOMI, GEOFF ENT: Positive: Hearing grossly normal Respiratory/Lung Sounds: Positive: Clear to Auscultation, Breath Sounds Present Cardiovascular: Positive: RRR, S1, S2 Abdomen Description: Positive: Nontender, Soft Bowel Sounds: Positive: Present Musculoskeletal: Positive: Strength/ROM Intact Neurological: Positive: Sensory/Motor Intact, Alert, Oriented to Person Place, Time, Normal Gait, Facial Symmetry, Speech Normal Psychiatric: Positive: Patient Uncooperative for Exam AVPU Assessment: Alert Procedures - Sedation Patient Received Moderate/Deep Sedation with Procedure: No Naus/Vom/Diarrhea Course/Dx - Course Course Of Treatment: Patient was evaluated in the emergency department today for nausea. Vitals noted. Patient was aggressive and verbally abusing staff upon arrival. Patient did not cooperate with exam. CT of the brain was ordered to investigate possible intracranial pathology to explain her nausea as she has been seen in this emergency department multiple times over the last few months. Patient declined CT of the brain. Patient was given 1 dose of Zofran. Patient began yelling hospital staff again and patient was discharged as there is no evidence of acute pathology requiring intervention at this time. Patient has antinausea medicines waiting for her at her pharmacy. Patient discharged to outpatient follow-up. - Differential Dx/Diagnosis Differential Diagnoses - Female: Vomiting, Other - intercranial mass, somatic Provider Diagnosis: Nausea Condition At Discharge: Stable Discharge ED - Sign-Out/Discharge Documenting (check all that apply): Patient Departure - Discharge Plan Condition: Stable Disposition: HOME Patient Education Materials: Acute Nausea and Vomiting (ED) Referrals: Fan Parsons MD [Primary Care Provider] - 3 Days Additional Instructions: Please go to your pharmacy and car pick up driver the antinausea medicines which have been sent. Please follow up with your primary care physician for long-term management within 3 days. Please return to this emergency department immediately should you develop any new or worsening symptoms. - Billing Disposition and Condition Condition: STABLE Disposition: Home - Attestation Statements Provider Attestation: I have seen the patient with the [facility] and agree with the plan and documentation below except as noted: briefly this is a 73-year-old female presenting with nausea. Patient's been evaluated multiple times, had normal CT abdomen and pelvis. Could be secondary to anti-retroviral medications. Patient refused head CT, was verbally abusive w staff. Given one zofran Phoebe Cortes MD
[2019-06-13 21:24] VITALS: BP 0/0
== END 2019-06-13 21:22 | disposition home or self-care (01) ==
LOC: ED 20:44
DX: R11.0 Nausea (principal); Z87.891 Personal history of nicotine dependence; K21.9 Gastro-esophageal reflux disease without esophagitis; F32.9 Major depressive disorder, single episode, unspecified; Z97.0 Presence of artificial eye; Z86.14 Personal history of Methicillin resistant Staphylococcus aureus infection; Z79.4 Long term (current) use of insulin; Z79.899 Other long term (current) drug therapy; Z21 Asymptomatic human immunodeficiency virus [HIV] infection status
CPT/HCPCS: 99282; A9270-GY

== ENCOUNTER 2019-06-19 11:32 | Emergency (ER) | payer MEDICARE, MEDICAID ==
--- NOTE | 2019-06-19 11:43 | ED ---
Complex/Multi-Sys Presentation - HPI Summary HPI Summary: The patient is a 73-year-old female arriving via ambulance from home to [facility] [facility] with chief complaint of nausea, vomiting, and diffuse pain. EMS states they received a call for chest pain, but when they arrived, the patient denied any pain. She was able to walk outside to the stretcher calmly and lie down. She told them she was sick, but when they asked her to specify what was wrong she became aggressive and argumentative, yelling at EMS. They did not see any signs of vomiting in the house. The patient states that she is nauseous and has pain everywhere rated 10/10 in severity. She is yelling at staff in the ED and is uncooperative. Past medical history obtained from records: diabetes with neuropathy, hypercholesterolemia, hypertension, COPD, GERD, lower abdominal cyst removal, arthritis, cataracts, right prosthetic eye, depression, schizophrenia, substance abuse, HIV, hepatitis. Patient has been here for multiple same complaints. LEVEL 5 CAVEAT SECONDARY TO PATIENT BEING UNCOOPERATIVE. - History Of Current Complaint Hx Obtained From: EMS, Medical Records Hx From Patient Unobtainable Due To: Other - patient uncooperative Onset/Duration: Still Present Character: Unable To Describe Associated Signs And Symptoms: Positive: Nausea, Vomiting, Other - diffuse pain - Allergies/Home Medications Allergies/Adverse Reactions: Allergies Allergy/AdvReac Type Severity Reaction Status Date / Time No Known Allergies Allergy Verified 06/20/19 04:52 Home Medications: Home Medications Chlorthalidone TAB* [Hygroton TAB*] 50 mg PO DAILY 02/07/13 [History Confirmed 06/20/19] Simvastatin TAB(NF) [Zocor 20 MG (NF)] 20 mg PO DAILY 02/07/13 [History Confirmed 06/20/19] ValACYclovir (*) [Valtrex 1 GM(*)] 1 gm PO DAILY 06/18/15 [History Confirmed ] Insulin GLARGINE(*) [Lantus 100 units/ml 10 ml VIAL (*)] 60 units SUBCUT BID [History Confirmed 06/20/19] Insulin NPH Human Isophane [Humulin N Kwikpen 100 units/ml 3 ml x 5 Pens] 15 units IM BID AC 04/27/17 [History Confirmed 06/20/19] QUEtiapine TAB* [Seroquel 25 MG TAB*] 25 mg PO DAILY 04/27/17 [History Confirmed 06/20/19] Cholecalciferol CAP/TAB(NF) [Vitamin D3 CAP/TAB (NF)] 2,000 unit PO DAILY [History Confirmed 06/20/19] Clotrimazole 1% CREAM* [Clotrimazole 1%*] 1 applic TOPICAL BID 05/16/19 [ History Confirmed 06/20/19] Cyclosporine 0.05% OPHTH (NF) [Restasis 0.05% OPHTH] 1 drop BOTH EYES DAILY [History Confirmed 06/20/19] Dulaglutide (NF) [Trulicity (NF)] 0.5 ml SUBCUT WEEKLY 05/16/19 [History Confirmed 06/20/19] Ibuprofen TAB* [Motrin TAB* 800 MG] 800 mg PO TID PRN 05/16/19 [History Confirmed 06/20/19] Insulin NPH Human Isophane [Humulin N Kwikpen 100 units/ml 3 ml x 5 Pens] 20 units SUBCUT .BEFORE DINNER 05/16/19 [History Confirmed 06/20/19] Magnesium Oxide TAB* [MagOx 400 TAB*] 400 mg PO DAILY 05/16/19 [History Confirmed 06/20/19] Miconazole Nitrate [Miconazole-7] 1 applic VAGINAL BID 05/16/19 [History Confirmed 06/20/19] QUEtiapine XR TAB* [Seroquel Xr 50 MG TAB*] 50 mg PO BID 05/16/19 [History Confirmed 06/20/19] Saliva Substitute (NF) [Biotene Moisturizing Mouth (NF)] 1 spray MT BID [History Confirmed 06/20/19] Abacavir/Dolutegravir/Lamivudi [Triumeq 600-50-300 mg Tablet] 1 tab PO DAILY 11/19 [History Confirmed 06/20/19] Bismuth Subsalicylate [Pepto-Bismol] 525 mg PO Q6HR #1 oral.susp 06/09/19 [Rx Confirmed 06/20/19] Crofelemer [Mytesi] 125 mg PO BID 06/09/19 [History Confirmed 06/20/19] Estradiol VAG CM (NF) [Estrace VAG CM (NF)] 1 applic VAGINAL WEEKLY 06/09/19 [ History Confirmed 06/20/19] Loperamide CAP* [Imodium CAP*] 2 mg PO BID 06/09/19 [History Confirmed 06/20/19] Mupirocin 2% OINT* [Bactroban 2 % Oint*] 1 applic TOPICAL BID 06/09/19 [History Confirmed 06/20/19] Potassium Chlor TAB* [Klor Con ER TAB 10 MEQ*] 20 meq PO DAILY 06/09/19 [ History Confirmed 06/20/19] Pregabalin [Lyrica] 75 mg PO BID 06/09/19 [History Confirmed 06/20/19] glipiZIDE TAB.XL* [Glucotrol XL*] 10 mg PO DAILY 06/09/19 [History Confirmed ] PMH/Surg Hx/FS Hx/Imm Hx Endocrine/Hematology History: Reports: Hx Diabetes - insulin dependent diabetic , Other Endocrine/Hematological Disorders - HIV POSITIVE Denies: Hx Thyroid Disease Cardiovascular History: Reports: Hx Hypercholesterolemia, Hx Hypertension, Other Cardiovascular Problems/Disorders - hyperlipidemia Denies: Hx Pacemaker/ICD Respiratory History: Reports: Hx Chronic Bronchitis, Hx Chronic Obstructive Pulmonary Disease (COPD) Denies: Hx Asthma GI History: Reports: Hx Gastroesophageal Reflux Disease Denies: Hx Ulcer History: Reports: Hx Kidney Infection, Other Problems/Disorders - hemorrhoids, herpes simplex Denies: Hx Kidney Stones, Hx Renal Disease Musculoskeletal History: Reports: Hx Arthritis Sensory History: Reports: Hx Cataracts - left eye, Hx Contacts or Glasses - readers, Hx Eye Prosthesis - Rt, Hx Vision Problem - RIGHT EYE PROSTHETIC, Other Sensory Impairments - no contacts - wears eyeglasses Denies: Hx Glaucoma, Hx Hearing Aid Opthamlomology History: Reports: Hx Cataracts - left eye, Hx Contacts or Glasses - readers, Hx Eye Prosthesis - Rt, Hx Vision Problem - RIGHT EYE PROSTHETIC, Other Sensory Impairments - no contacts - wears eyeglasses Denies: Hx Glaucoma Neurological History: Reports: Hx Nerve Disease - neuropathy, Other Neuro Impairments/Disorders - schizophrenia Psychiatric History: Reports: Hx Depression, Hx Schizophrenia, Hx Substance Abuse Denies: Hx Eating Disorder, Hx Panic Disorder, Hx Post Traumatic Stress Disorder, Hx Bipolar Disorder, Hx Suicide Attempt - Cancer History Hx Chemotherapy: No Hx Radiation Therapy: No - Surgical History Surgical History: Yes Surgery Procedure, Year, and Place: right eye prosthetic - d/t trauma. right lower abdomen cyst removal Hx Anesthesia Reactions: No - Immunization History Date of Tetanus Vaccine: utd Date of Influenza Vaccine: 03/2017 Infectious Disease History: Reports: Hx Hepatitis - chronic HEP C, Hx Human Immunodeficiency Virus (HIV), Hx of Known/Suspected MRSA - Family History Known Family History: Positive: Cardiac Disease, Hypertension - Social History Alcohol Amount: pt refuses to answer questions Substance Use Comment - Amount & Last Used: pt refuses to answer questions Hx Tobacco Use: Yes Type: Cigarettes Amount Used/How Often: 2 ppd for 20 yrs Have You Smoked in the Last Year: No Review of Systems Positive: Other - diffuse pain Positive: Vomiting, Nausea All Other Systems Reviewed And Are Negative: No - Comments Additional Review of Systems Comments: LEVEL 5 CAVEAT SECONDARY TO PATIENT BEING UNCOOPERATIVE. Physical Exam - Summary Physical Exam Summary: Patient uncooperative and declining physical exam. Patient screaming, agitated, flapping hands at me and the nurse trying to hit us. She is alert & oriented x3 , ambulatory in the emergency department. She does not appear to be in any organic distress. Vital signs reviewed. Triage Information Reviewed: Yes Vital Signs Reviewed: Yes Completion Of Physical Exam Limited Due To: Level 5 - patient uncooperative and declining exam Procedures - Sedation Patient Received Moderate/Deep Sedation with Procedure: No Complex Multi-Symp Course/Dx Course Of Treatment: Patient is screaming, not providing any history, refusing to do any type of physical exam, blood work, or testing. She is requesting pain medications. It was explained multiple times to her that for us to provide any help she needs to allow us to perform a physical exam and testing, but she refuses. Patient continues to scream, be agitated, disturbing, flapping hands against me and nurse trying to hit us. She is alert & oriented x3, ambulatory in the ED. We explained multiple times that she needs testing in order to give any medications, she needs a physical exam and testing, but she refuses once again. She was here on 05/18/2019 and had an Abdomen/Pelvic CT showing gallstones without cholecystitis, cirrhotic appearing liver, and mildly enlarged spleen. She had a similar CT on 02/04/2019 without significant abnormalities. Blood work last taken on 06/09/2019 with normal findings except for slight chronic anemia, potassium was 2.9 for which she was given potassium chloride. Since she will not allow us to do any type of workup, and she does not seem to be under organic distress, she will be discharged home with PCP follow up. She understands this as she is not allowing us to do any physical exam, testing, or assessment of anything. - Diagnoses Provider Diagnoses: Aggressive behavior - Critical Care Time Critical Care Statement: Critical care time is provided exclusive of any time spent performing procedures. Discharge ED - Sign-Out/Discharge Documenting (check all that apply): Patient Departure - Patient will be discharged home. - Discharge Plan Condition: Stable Disposition: HOME Patient Education Materials: Conduct Disorder (ED) Referrals: Fan Parsons MD [Primary Care Provider] - 3 Days Additional Instructions: Follow up with your primary care provider in 2-3 days. Return to the emergency department for any new or worsening symptoms. - Billing Disposition and Condition Condition: STABLE Disposition: Home - Attestation Statements Document Initiated by Fabiolaibe: Yes Documenting Scribe: Pamela Christiansen Provider For Whom Gaston is Documenting (Include Credential): Derek Thomason MD Scribe Attestation: Pamela Hastings, scribed for Derek Thomason MD on 06/21/19 at 0754. Scribe Documentation Reviewed: Yes Provider Attestation: The documentation as recorded by the Pamela quinonez accurately reflects the service I personally performed and the decisions made by me, Derek Thomason MD Status of Scribe Document: Viewed
[2019-06-19] MEDS ORDERED: Ondansetron ODT TAB* 4 MG SL PRN (11:48)
[2019-06-19] MEDS ORDERED: Ondansetron ODT TAB* 4 MG ONE (11:50)
[2019-06-19 11:58] VITALS: BP 00/00
== END 2019-06-19 11:57 | disposition home or self-care (01) ==
LOC: ED 11:32
DX: F91.8 Other conduct disorders (principal); R11.2 Nausea with vomiting, unspecified; E11.9 Type 2 diabetes mellitus without complications; E78.00 Pure hypercholesterolemia, unspecified; I10 Essential (primary) hypertension; E78.5 Hyperlipidemia, unspecified; K21.9 Gastro-esophageal reflux disease without esophagitis; Z86.14 Personal history of Methicillin resistant Staphylococcus aureus infection; Z79.4 Long term (current) use of insulin; Z87.891 Personal history of nicotine dependence; Z79.899 Other long term (current) drug therapy; Z21 Asymptomatic human immunodeficiency virus [HIV] infection status; Z86.79 Personal history of other diseases of the circulatory system
CPT/HCPCS: 99282; A9270-GY

== ENCOUNTER 2019-06-19 12:45 | Emergency (ER) | payer MEDICARE, MEDICAID ==
--- NOTE | 2019-06-19 12:59 | ED ---
Complex/Multi-Sys Presentation - HPI Summary HPI Summary: The patient is a 73-year-old female [place] [facility] [facility], seen in triage, with a chief complaint of facial abrasions onset immediately prior to arrival. She was just discharged from the ED, and had been waiting for her ride outside when she threw herself on the ground, per triage nurse as witnessed by security officers. She now has an abrasion above the right eyebrow. Patient refusing rest of visit. LEVEL 5 CAVEAT SECONDARY TO PATIENT BEING UNCOOPERATIVE/REFUSING WORKUP. - History Of Current Complaint Chief Complaint: EDFall Hx Obtained From: Patient, Other: - triage nurse Hx From Patient Unobtainable Due To: Other - LEVEL 5 CAVEAT SECONDARY TO PATIENT BEING UNCOOPERATIVE/REFUSING WORKUP. Severity Currently: Mild Associated Signs And Symptoms: Positive: Other - abrasion above right eyebrow - Allergies/Home Medications Allergies/Adverse Reactions: Allergies Allergy/AdvReac Type Severity Reaction Status Date / Time No Known Allergies Allergy Verified 06/20/19 04:52 Home Medications: Home Medications Chlorthalidone TAB* [Hygroton TAB*] 50 mg PO DAILY 02/07/13 [History Confirmed 06/20/19] Simvastatin TAB(NF) [Zocor 20 MG (NF)] 20 mg PO DAILY 02/07/13 [History Confirmed 06/20/19] ValACYclovir (*) [Valtrex 1 GM(*)] 1 gm PO DAILY 06/18/15 [History Confirmed ] Insulin GLARGINE(*) [Lantus 100 units/ml 10 ml VIAL (*)] 60 units SUBCUT BID [History Confirmed 06/20/19] Insulin NPH Human Isophane [Humulin N Kwikpen 100 units/ml 3 ml x 5 Pens] 15 units IM BID AC 04/27/17 [History Confirmed 06/20/19] QUEtiapine TAB* [Seroquel 25 MG TAB*] 25 mg PO DAILY 04/27/17 [History Confirmed 06/20/19] Cholecalciferol CAP/TAB(NF) [Vitamin D3 CAP/TAB (NF)] 2,000 unit PO DAILY [History Confirmed 06/20/19] Clotrimazole 1% CREAM* [Clotrimazole 1%*] 1 applic TOPICAL BID 05/16/19 [ History Confirmed 06/20/19] Cyclosporine 0.05% OPHTH (NF) [Restasis 0.05% OPHTH] 1 drop BOTH EYES DAILY [History Confirmed 06/20/19] Dulaglutide (NF) [Trulicity (NF)] 0.5 ml SUBCUT WEEKLY 05/16/19 [History Confirmed 06/20/19] Ibuprofen TAB* [Motrin TAB* 800 MG] 800 mg PO TID PRN 05/16/19 [History Confirmed 06/20/19] Insulin NPH Human Isophane [Humulin N Kwikpen 100 units/ml 3 ml x 5 Pens] 20 units SUBCUT .BEFORE DINNER 05/16/19 [History Confirmed 06/20/19] Magnesium Oxide TAB* [MagOx 400 TAB*] 400 mg PO DAILY 05/16/19 [History Confirmed 06/20/19] Miconazole Nitrate [Miconazole-7] 1 applic VAGINAL BID 05/16/19 [History Confirmed 06/20/19] QUEtiapine XR TAB* [Seroquel Xr 50 MG TAB*] 50 mg PO BID 05/16/19 [History Confirmed 06/20/19] Saliva Substitute (NF) [Biotene Moisturizing Mouth (NF)] 1 spray MT BID [History Confirmed 06/20/19] Abacavir/Dolutegravir/Lamivudi [Triumeq 600-50-300 mg Tablet] 1 tab PO DAILY 11/19 [History Confirmed 06/20/19] Bismuth Subsalicylate [Pepto-Bismol] 525 mg PO Q6HR #1 oral.susp 06/09/19 [Rx Confirmed 06/20/19] Crofelemer [Mytesi] 125 mg PO BID 06/09/19 [History Confirmed 06/20/19] Estradiol VAG CM (NF) [Estrace VAG CM (NF)] 1 applic VAGINAL WEEKLY 06/09/19 [ History Confirmed 06/20/19] Loperamide CAP* [Imodium CAP*] 2 mg PO BID 06/09/19 [History Confirmed 06/20/19] Mupirocin 2% OINT* [Bactroban 2 % Oint*] 1 applic TOPICAL BID 06/09/19 [History Confirmed 06/20/19] Potassium Chlor TAB* [Klor Con ER TAB 10 MEQ*] 20 meq PO DAILY 06/09/19 [ History Confirmed 06/20/19] Pregabalin [Lyrica] 75 mg PO BID 06/09/19 [History Confirmed 06/20/19] glipiZIDE TAB.XL* [Glucotrol XL*] 10 mg PO DAILY 06/09/19 [History Confirmed ] PMH/Surg Hx/FS Hx/Imm Hx Endocrine/Hematology History: Reports: Hx Diabetes - insulin dependent diabetic , Other Endocrine/Hematological Disorders - HIV POSITIVE Denies: Hx Thyroid Disease Cardiovascular History: Reports: Hx Hypercholesterolemia, Hx Hypertension, Other Cardiovascular Problems/Disorders - hyperlipidemia Denies: Hx Pacemaker/ICD Respiratory History: Reports: Hx Chronic Bronchitis, Hx Chronic Obstructive Pulmonary Disease (COPD) Denies: Hx Asthma GI History: Reports: Hx Gastroesophageal Reflux Disease Denies: Hx Ulcer History: Reports: Hx Kidney Infection, Other Problems/Disorders - hemorrhoids, herpes simplex Denies: Hx Kidney Stones, Hx Renal Disease Musculoskeletal History: Reports: Hx Arthritis Sensory History: Reports: Hx Cataracts - left eye, Hx Contacts or Glasses - readers, Hx Eye Prosthesis - Rt, Hx Vision Problem - RIGHT EYE PROSTHETIC, Other Sensory Impairments - no contacts - wears eyeglasses Denies: Hx Glaucoma, Hx Hearing Aid Opthamlomology History: Reports: Hx Cataracts - left eye, Hx Contacts or Glasses - readers, Hx Eye Prosthesis - Rt, Hx Vision Problem - RIGHT EYE PROSTHETIC, Other Sensory Impairments - no contacts - wears eyeglasses Denies: Hx Glaucoma Neurological History: Reports: Hx Nerve Disease - neuropathy, Other Neuro Impairments/Disorders - schizophrenia Psychiatric History: Reports: Hx Depression, Hx Schizophrenia, Hx Substance Abuse Denies: Hx Eating Disorder, Hx Panic Disorder, Hx Post Traumatic Stress Disorder, Hx Bipolar Disorder, Hx Suicide Attempt - Cancer History Hx Chemotherapy: No Hx Radiation Therapy: No - Surgical History Surgery Procedure, Year, and Place: right eye prosthetic - d/t trauma. right lower abdomen cyst removal Hx Anesthesia Reactions: No - Immunization History Date of Tetanus Vaccine: utd Date of Influenza Vaccine: 03/2017 Infectious Disease History: No Infectious Disease History: Reports: Hx Hepatitis - chronic HEP C, Hx Human Immunodeficiency Virus (HIV), Hx of Known/Suspected MRSA Denies: Traveled Outside the [place] in Last 30 Days - Family History Known Family History: Positive: Cardiac Disease, Hypertension - Social History Alcohol Use: None Alcohol Amount: pt refuses to answer questions Hx Substance Use: No Substance Use Type: Reports: None Substance Use Comment - Amount & Last Used: pt refuses to answer questions Hx Tobacco Use: Yes Smoking Status (MU): Never Smoked Tobacco Type: Cigarettes Amount Used/How Often: 2 ppd for 20 yrs Have You Smoked in the Last Year: No Review of Systems Positive: Other - abrasion to right face All Other Systems Reviewed And Are Negative: No - Comments Additional Review of Systems Comments: LEVEL 5 CAVEAT SECONDARY TO PATIENT BEING UNCOOPERATIVE/REFUSING WORKUP. Physical Exam - Summary Physical Exam Summary: Patient refusing full physical exam. There is an abrasion to the right side of the forehead with a small amount of bleeding. After cleaning the area, there is no laceration requiring suturing. Patient is alert & oriented x3. Palpation of the neck without any pain. Triage Information Reviewed: Yes Vital Signs On Initial Exam: Initial Vitals Temp Pulse Resp BP Pulse Ox 98 F 0 22 160/82 0 06/19/19 12:50 06/19/19 12:50 06/19/19 12:50 06/19/19 12:50 06/19/19 12:50 Vital Signs Reviewed: Yes Completion Of Physical Exam Limited Due To: Level 5 - PATIENT UNCOOPERATIVE/ REFUSING EXAM Procedures - Sedation Patient Received Moderate/Deep Sedation with Procedure: No Diagnostics - Vital Signs Vital Signs Temp Pulse Resp BP Pulse Ox 06/19/19 12:50 98 F 0 22 160/82 0 - Laboratory Lab Statement: Any lab studies that have been ordered have been reviewed, and results considered in the medical decision making process. Complex Multi-Symp Course/Dx Course Of Treatment: After patient was discharged, I was called into triage where nurse stated security witnessed the patient throwing herself on the ground outside while waiting for her ride and now has a small abrasion on the forehead. I went out to triage, and the area above the right eyebrow was bleeding. After cleaning a small amount of blood from the forehead, there is no found laceration or need for sutures, just an abrasion to the right side of the forehead. Patient refuses to be seen or have any workup. Patient is alert & oriented x3. I palpated the neck without any pain. Patient does not want anything to be done. She refused to sign the AGAINST MEDICAL ADVICE form. Patient is safe for discharge at this time. - Diagnoses Provider Diagnoses: Left against medical advice, Facial abrasion - Critical Care Time Critical Care Statement: Critical care time is provided exclusive of any time spent performing procedures. Discharge ED - Sign-Out/Discharge Documenting (check all that apply): Patient Departure - Patient refusing workup , will leave AMA. - Discharge Plan Condition: Stable Disposition: AGAINST MEDICAL ADVICE Referrals: Fan Parsons MD [Primary Care Provider] - - Billing Disposition and Condition Condition: STABLE Disposition: Against Medical Advice - Attestation Statements Document Initiated by Scribe: Yes Documenting Scribe: Pamela Christiansen Provider For Whom Gaston is Documenting (Include Credential): Derek Thomason MD Scribe Attestation: Pamela Hastings, scribed for Derek Thomason MD on 06/21/19 at 0755. Scribe Documentation Reviewed: Yes Provider Attestation: The documentation as recorded by the Pamela quinonez accurately reflects the service I personally performed and the decisions made by me, Derek Thomason MD Status of Scribe Document: Viewed
[2019-06-19 13:00] VITALS: BP 160/82
== END 2019-06-19 13:08 | disposition left against medical advice (07) ==
LOC: ED 12:45
DX: S00.81XA Abrasion of other part of head, initial encounter (principal); W19.XXXA Unspecified fall, initial encounter; Y92.238 Other place in hospital as the place of occurrence of the external cause; E11.9 Type 2 diabetes mellitus without complications; Z79.4 Long term (current) use of insulin; E78.00 Pure hypercholesterolemia, unspecified; I10 Essential (primary) hypertension; J44.9 Chronic obstructive pulmonary disease, unspecified
CPT/HCPCS: 99282

== ENCOUNTER → 2019-06-20 04:48 | Emergency (ER) | payer MEDICARE, MEDICAID ==
[~2019-06-20 04:48] MED LIST: Al Hydrox/Mg Hydrox/Simet LIQ* 30 ML UDC PO ONE; Famotidine TAB* 20 MG PO ONE; Lidocaine 2% VISCOUS* 15 ML UDC PO ONE
[2019-06-20 04:52] VITALS: BP 196/113
--- NOTE | 2019-06-20 05:06 | ED ---
Abdominal Pain/Female - HPI Summary HPI Summary: Patient is a 73 y/o F w/ Hx of schizophrenia who presents to [facility] via EMS with complaints of abdominal pain, N/V. EMS reports that they were not able to obtain extensive history as the patient was responding, "It hurts" to most questions. The patient had been evaluated numerous times within the past few months for similar complaints. Previous CT abd/pel that were done resulted essentially negative. In the room, patient notes that Pepcid and Maalox have provided relief to her Sx on previous occasions. Home medications and allergies are reviewed. On vitals, temp is 98.8 F, no fever. - History of Current Complaint Chief Complaint: EDAbdPain Stated Complaint: ABD PAIN PER EMS Hx Obtained From: Patient, EMS, Medical Records Onset/Duration: Still Present Timing: Constant Severity Currently: Moderate Pain Intensity: 5 Pain Scale Used: 0-10 Numeric Location: Diffuse Associated Signs and Symptoms: Positive: Nausea, Vomiting. Negative: Fever Allergies/Adverse Reactions: Allergies Allergy/AdvReac Type Severity Reaction Status Date / Time No Known Allergies Allergy Verified 06/20/19 04:52 Home Medications: Home Medications Chlorthalidone TAB* [Hygroton TAB*] 50 mg PO DAILY 02/07/13 [History Confirmed 06/13/19] Lisinopril TAB* [Prinivil TAB 10 MG*] 40 mg PO DAILY 02/07/13 [History Confirmed 06/13/19] Simvastatin TAB(NF) [Zocor 20 MG (NF)] 20 mg PO DAILY 02/07/13 [History Confirmed 06/13/19] ValACYclovir (*) [Valtrex 1 GM(*)] 1 gm PO DAILY 06/18/15 [History Confirmed ] Insulin GLARGINE(*) [Lantus 100 units/ml 10 ml VIAL (*)] 60 units SUBCUT BID [History Confirmed 06/13/19] Albuterol HFA INHALER* [Ventolin HFA Inhaler*] 2 puff INH QID PRN 04/27/17 [ History Confirmed 06/13/19] Famotidine TAB* [Pepcid 20 MG TAB*] 20 mg PO DAILY 04/27/17 [History Confirmed 06/13/19] Insulin NPH Human Isophane [Humulin N Kwikpen 100 units/ml 3 ml x 5 Pens] 15 units IM BID AC 04/27/17 [History Confirmed 06/13/19] QUEtiapine TAB* [Seroquel 25 MG TAB*] 25 mg PO DAILY 04/27/17 [History Confirmed 06/13/19] Dicyclomine CAP* [Bentyl CAP*] 20 mg PO BID 07/20/17 [History Confirmed 06/13/19 ] Cholecalciferol CAP/TAB(NF) [Vitamin D3 CAP/TAB (NF)] 2,000 unit PO DAILY [History Confirmed 06/13/19] Clotrimazole 1% CREAM* [Clotrimazole 1%*] 1 applic TOPICAL BID 05/16/19 [ History Confirmed 06/13/19] Cyclosporine 0.05% OPHTH (NF) [Restasis 0.05% OPHTH] 1 drop BOTH EYES DAILY [History Confirmed 06/13/19] Dulaglutide (NF) [Trulicity (NF)] 0.5 ml SUBCUT WEEKLY 05/16/19 [History Confirmed 06/13/19] Ibuprofen TAB* [Motrin TAB* 800 MG] 800 mg PO TID PRN 05/16/19 [History Confirmed 06/13/19] Insulin NPH Human Isophane [Humulin N Kwikpen 100 units/ml 3 ml x 5 Pens] 20 units SUBCUT .BEFORE DINNER 05/16/19 [History Confirmed 06/13/19] Magnesium Oxide TAB* [MagOx 400 TAB*] 400 mg PO DAILY 05/16/19 [History Confirmed 06/13/19] Miconazole Nitrate [Miconazole-7] 1 applic VAGINAL BID 05/16/19 [History Confirmed 06/13/19] QUEtiapine XR TAB* [Seroquel Xr 50 MG TAB*] 50 mg PO BID 05/16/19 [History Confirmed 06/13/19] Saliva Substitute (NF) [Biotene Moisturizing Mouth (NF)] 1 spray MT BID [History Confirmed 06/13/19] Abacavir/Dolutegravir/Lamivudi [Triumeq 600-50-300 mg Tablet] 1 tab PO DAILY 11/19 [History Confirmed 06/13/19] Bismuth Subsalicylate [Pepto-Bismol] 525 mg PO Q6HR #1 oral.susp 06/09/19 [Rx Confirmed 06/13/19] Crofelemer [Mytesi] 125 mg PO BID 06/09/19 [History Confirmed 06/13/19] Estradiol VAG CM (NF) [Estrace VAG CM (NF)] 1 applic VAGINAL WEEKLY 06/09/19 [ History Confirmed 06/13/19] Loperamide CAP* [Imodium CAP*] 2 mg PO BID 06/09/19 [History Confirmed 06/13/19] Mupirocin 2% OINT* [Bactroban 2 % Oint*] 1 applic TOPICAL BID 06/09/19 [History Confirmed 06/13/19] Potassium Chlor TAB* [Klor Con ER TAB 10 MEQ*] 20 meq PO DAILY 06/09/19 [ History Confirmed 06/13/19] Pregabalin [Lyrica] 75 mg PO BID 06/09/19 [History Confirmed 06/13/19] glipiZIDE TAB.XL* [Glucotrol XL*] 10 mg PO DAILY 06/09/19 [History Confirmed ] PMH/Surg Hx/FS Hx/Imm Hx Endocrine/Hematology History: Reports: Hx Diabetes - insulin dependent diabetic , Other Endocrine/Hematological Disorders - HIV POSITIVE Denies: Hx Thyroid Disease Cardiovascular History: Reports: Hx Hypercholesterolemia, Hx Hypertension, Other Cardiovascular Problems/Disorders - hyperlipidemia Denies: Hx Pacemaker/ICD Respiratory History: Reports: Hx Chronic Bronchitis, Hx Chronic Obstructive Pulmonary Disease (COPD) Denies: Hx Asthma GI History: Reports: Hx Gastroesophageal Reflux Disease Denies: Hx Ulcer History: Reports: Hx Kidney Infection, Other Problems/Disorders - hemorrhoids, herpes simplex Denies: Hx Kidney Stones, Hx Renal Disease Musculoskeletal History: Reports: Hx Arthritis Sensory History: Reports: Hx Cataracts - left eye, Hx Contacts or Glasses - readers, Hx Eye Prosthesis - Rt, Hx Vision Problem - RIGHT EYE PROSTHETIC, Other Sensory Impairments - no contacts - wears eyeglasses Denies: Hx Glaucoma, Hx Hearing Aid Opthamlomology History: Reports: Hx Cataracts - left eye, Hx Contacts or Glasses - readers, Hx Eye Prosthesis - Rt, Hx Vision Problem - RIGHT EYE PROSTHETIC, Other Sensory Impairments - no contacts - wears eyeglasses Denies: Hx Glaucoma Neurological History: Reports: Hx Nerve Disease - neuropathy, Other Neuro Impairments/Disorders - schizophrenia Psychiatric History: Reports: Hx Depression, Hx Schizophrenia, Hx Substance Abuse Denies: Hx Eating Disorder, Hx Panic Disorder, Hx Post Traumatic Stress Disorder, Hx Bipolar Disorder, Hx Suicide Attempt - Cancer History Hx Chemotherapy: No Hx Radiation Therapy: No - Surgical History Surgery Procedure, Year, and Place: right eye prosthetic - d/t trauma. right lower abdomen cyst removal Hx Anesthesia Reactions: No - Immunization History Date of Tetanus Vaccine: utd Date of Influenza Vaccine: 03/2017 Infectious Disease History: No Infectious Disease History: Reports: Hx Hepatitis - chronic HEP C, Hx Human Immunodeficiency Virus (HIV), Hx of Known/Suspected MRSA Denies: Traveled Outside the [place] in Last 30 Days - Family History Known Family History: Positive: Cardiac Disease, Hypertension - Social History Alcohol Use: None Alcohol Amount: pt refuses to answer questions Hx Substance Use: No Substance Use Type: Reports: None Substance Use Comment - Amount & Last Used: pt refuses to answer questions Hx Tobacco Use: Yes Smoking Status (MU): Never Smoked Tobacco Type: Cigarettes Amount Used/How Often: 2 ppd for 20 yrs Have You Smoked in the Last Year: No Review of Systems Negative: Fever - On vitals, temp is 98.8 F, no fever. Positive: Abdominal Pain, Vomiting, Nausea All Other Systems Reviewed And Are Negative: Yes Physical Exam - Summary Physical Exam Summary: Appearance: Well-appearing, Well-nourished, lying in bed comfortable Skin: Warm, dry, no obvious rash Eyes: sclera anicteric, no conjunctival pallor HENT: mucous membranes moist Neck: deferred Respiratory: No signs of respiratory distress Cardiovascular: Appears well perfused, pulses are nml Abdomen: deferred Musculoskeletal: Moving all 4 extremities without obvious discomfort Neurological: Awake and alert, mentation is normal, speech is fluent and appropriate Psychiatric: affect is normal, does not appear anxious or depressed Triage Information Reviewed: Yes Vital Signs On Initial Exam: Initial Vitals Temp Pulse Resp BP Pulse Ox 98.8 F 94 16 196/113 100 06/20/19 04:51 06/20/19 04:51 06/20/19 04:51 06/20/19 04:51 06/20/19 04:51 Vital Signs Reviewed: Yes Procedures - Sedation Patient Received Moderate/Deep Sedation with Procedure: No Diagnostics - Vital Signs Vital Signs Temp Pulse Resp BP Pulse Ox 06/20/19 04:51 98.8 F 94 16 196/113 100 - Laboratory Result Diagrams: 06/20/19 05:03 06/20/19 05:03 Lab Statement: Any lab studies that have been ordered have been reviewed, and results considered in the medical decision making process. Re-Evaluation - Re-Evaluation First Eval Re-Evaluation Time: 05:52 Comment: Mental health peg driver Eli reports that she had gone into the patient's room to discuss having the patient undergo MHE. Patient had stated that she was unwilling to answer any questions. Abdominal Pain Fem Course/Dx - Course Course Of Treatment: Patient is a 73 y/o F w/ Hx of schizophrenia who presents to [facility] via EMS with complaints of abdominal pain, N/V. EMS reports that they were not able to obtain extensive history as the patient was responding, "It hurts" to most questions. The patient had been evaluated numerous times within the past few months for similar complaints. Previous CT abd/pel that were done resulted essentially negative. In the room, patient notes that Pepcid and Maalox have provided relief to her Sx on previous occasions. Physical exam is unremarkable. Patient has no changes to her Sx since previous visits. Her presentation appears to be a somatic manifestation of underlying psychiatric issues. Patient has Hx of schizophrenia and appears to be decompensating. MHE ordered. During ED course, patient received Maalox 30 mg, Pepcid 20 mg, and Lidocaine 15 mL PO. Bloodwork was obtained. Glucose was 48, patient was provided with orange juice and snacks. Other abnormal values include Hgb 10.3, Hct 32, MCV 71, MCH 23, RDW 18, chloride 97, creatinine 1.15. Mental health peg driver Eli reports that she had gone into the patient's room to discuss having the patient undergo MHE. Patient had stated that she was unwilling to answer any questions. Patient was discharged to home. - Diagnoses Provider Diagnoses: Chronic abdominal pain - Critical Care Time Critical Care Statement: Critical care time is provided exclusive of any time spent performing procedures. Discharge ED - Sign-Out/Discharge Documenting (check all that apply): Patient Departure - discharge - Discharge Plan Condition: Stable Disposition: HOME Referrals: Fan Parsons MD [Primary Care Provider] - - Attestation Statements Document Initiated by Scribe: Yes Documenting Scribe: JEM ELDRIDGE Provider For Whom Fabiolaibe is Documenting (Include Credential): KEERTHI SWAN MD Scribe Attestation: I, JEM ELDRIDGE, scribed for KEERTHI SWAN MD on 06/20/19 at 0556. Status of Scribe Document: Ready
[2019-06-20 05:26] LABS: ABS Basophils 0.1 10^3/ul (0-0.2); ABS Eosinophils 0.1 10^3/ul (0-0.6); ABS Lymphocytes 1.6 10^3/ul (1.0-4.8); ABS Monocytes 0.7 10^3/ul (0-0.8); ABS Neutrophils 5.8 10^3/ul (1.5-7.7); Eosinophil % 1.1 %; Hematocrit 32 % (35-47); Hemoglobin 10.3 g/dL (12.0-16.0); Lymphocyte % 19.4 %; Mean Corpuscular HGB Conc 32 g/dL (31-36); Mean Corpuscular Hemoglobin 23 pg (27-31); Mean Corpuscular Volume 71 fL (80-97); Mean Platelet Volume 7.5 fL (7.4-10.4); Nucleated Red Blood Cells % 0.1; Platelet Count 245 10^3/uL (150-450); Red Blood Count 4.45 10^6 /uL (3.70-4.87); Red Cell Distribution Width 18 % (10-15); White Blood Count 8.3 10^3/uL (3.5-10.8)
[2019-06-20 05:33] LABS: ALT 22 U/L (7-52); AST 21 U/L (13-39); Albumin 3.8 g/dL (3.2-5.2); Albumin/Globulin Ratio 1.2 (1-3); Alkaline Phosphatase 76 U/L (34-104); Anion Gap 7 mmol/L (2-11); BUN/Creatinine Ratio 18.3 (8-20); Blood Urea Nitrogen 21 mg/dL (6-24); CO2 Carbon Dioxide 31 mmol/L (22-32); Calcium 9.3 mg/dL (8.6-10.3); Chloride 97 mmol/L (101-111); EGFR African American 56.1 (>60); EGFR Non-African American 46.4 (>60); Globulin 3.2 g/dL (2-4); Potassium 3.5 mmol/L (3.5-5.0); Sodium 135 mmol/L (135-145)
[2019-06-20 05:38] LABS: Glucose 48 mg/dL (70-100)
[2019-06-20 06:11] LABS: Acetaminophen < 15 mcg/mL; Alcohol < 10 mg/dL (<10); Salicylate < 2.50 mg/dL (<30)
[2019-06-20 06:27] LABS: TSH (Thyroid Stimulating Horm) 0.69 mcIU/mL (0.34-5.60)
== END | disposition home or self-care (01) ==
LOC: ED 04:48
DX: R10.9 Unspecified abdominal pain (principal); G89.29 Other chronic pain; R11.2 Nausea with vomiting, unspecified; E11.9 Type 2 diabetes mellitus without complications; I10 Essential (primary) hypertension; E78.00 Pure hypercholesterolemia, unspecified; K21.9 Gastro-esophageal reflux disease without esophagitis; Z97.0 Presence of artificial eye; Z79.4 Long term (current) use of insulin; Z87.891 Personal history of nicotine dependence; Z79.899 Other long term (current) drug therapy; Z21 Asymptomatic human immunodeficiency virus [HIV] infection status; E78.5 Hyperlipidemia, unspecified; F20.9 Schizophrenia, unspecified
CPT/HCPCS: 36415; 80053; 80320; 80329; 84443; 85025; 99283; A9270-GY; G0480

== ENCOUNTER 2019-06-21 04:34 | Emergency (ER) | payer MEDICARE, MEDICAID ==
[2019-06-21] MEDS ORDERED: Famotidine TAB* 20 MG PO ONE (05:32)
[2019-06-21] MEDS ORDERED: Al Hydrox/Mg Hydrox/Simet LIQ* 30 ML UDC PO ONE (05:32)
[2019-06-21 05:50] LABS: ABS Eosinophils 0.1 10^3/ul (0-0.6); ABS Lymphocytes 1.1 10^3/ul (1.0-4.8); ABS Monocytes 0.7 10^3/ul (0-0.8); ABS Neutrophils 6.8 10^3/ul (1.5-7.7); Eosinophil % 0.6 %; Hematocrit 34 % (35-47); Hemoglobin 10.9 g/dL (12.0-16.0); Lymphocyte % 12.8 %; Mean Corpuscular HGB Conc 32 g/dL (31-36); Mean Corpuscular Hemoglobin 23 pg (27-31); Mean Corpuscular Volume 72 fL (80-97); Mean Platelet Volume 7.3 fL (7.4-10.4); Platelet Count 245 10^3/uL (150-450); Red Blood Count 4.77 10^6 /uL (3.70-4.87); Red Cell Distribution Width 18 % (10-15); White Blood Count 8.7 10^3/uL (3.5-10.8)
[2019-06-21 06:08] LABS: ALT 21 U/L (7-52); AST 19 U/L (13-39); Albumin 4.1 g/dL (3.2-5.2); Albumin/Globulin Ratio 1.2 (1-3); Alkaline Phosphatase 84 U/L (34-104); Anion Gap 8 mmol/L (2-11); BUN/Creatinine Ratio 17.9 (8-20); Blood Urea Nitrogen 19 mg/dL (6-24); C Reactive Protein 3.94 mg/L (<8.01); CO2 Carbon Dioxide 34 mmol/L (22-32); Calcium 9.7 mg/dL (8.6-10.3); Chloride 94 mmol/L (101-111); EGFR African American 61.7 (>60); Globulin 3.5 g/dL (2-4); Potassium 3.2 mmol/L (3.5-5.0); Sodium 136 mmol/L (135-145); Total Protein 7.6 g/dL (6.4-8.9)
--- NOTE | 2019-06-21 06:08 | ED ---
GI/ HPI - HPI Summary HPI Summary: Patient is a 73 y/o F w/ Hx of chronic abdominal pain and schizophrenia who presents to [facility] via EMS with complaints of nausea, and diarrhea. The patient has been seen numerous times within the past two months for complaints of abdominal pain. Prior CT abd/pel imaging were essentially negative. In room, patient is requesting Pepcid. Home medications and allergies are reviewed. On vitals, temp is 96.1 F, no fever. - History of Current Complaint Chief Complaint: EDNauseaVomitDiarrh Stated Complaint: NOT FEELING WELL PER EMS Hx Obtained From: Patient Onset/Duration: Still Present Timing: Constant Pain Intensity: 0 Associated Signs and Symptoms: Positive: Nausea, Diarrhea - Additional Pertinent History Primary Care Physician: TATI - Allergy/Home Medications Allergies/Adverse Reactions: Allergies Allergy/AdvReac Type Severity Reaction Status Date / Time No Known Allergies Allergy Verified 06/20/19 04:52 Home Medications: Home Medications Chlorthalidone TAB* [Hygroton TAB*] 50 mg PO DAILY 02/07/13 [History Confirmed 06/21/19] Simvastatin TAB(NF) [Zocor 20 MG (NF)] 20 mg PO DAILY 02/07/13 [History Confirmed 06/21/19] ValACYclovir (*) [Valtrex 1 GM(*)] 1 gm PO DAILY 06/18/15 [History Confirmed ] Insulin GLARGINE(*) [Lantus 100 units/ml 10 ml VIAL (*)] 60 units SUBCUT BID [History Confirmed 06/21/19] Insulin NPH Human Isophane [Humulin N Kwikpen 100 units/ml 3 ml x 5 Pens] 15 units IM BID AC 04/27/17 [History Confirmed 06/21/19] QUEtiapine TAB* [Seroquel 25 MG TAB*] 25 mg PO DAILY 04/27/17 [History Confirmed 06/21/19] Cholecalciferol CAP/TAB(NF) [Vitamin D3 CAP/TAB (NF)] 2,000 unit PO DAILY [History Confirmed 06/21/19] Clotrimazole 1% CREAM* [Clotrimazole 1%*] 1 applic TOPICAL BID 05/16/19 [ History Confirmed 06/21/19] Cyclosporine 0.05% OPHTH (NF) [Restasis 0.05% OPHTH] 1 drop BOTH EYES DAILY [History Confirmed 06/21/19] Dulaglutide (NF) [Trulicity (NF)] 0.5 ml SUBCUT WEEKLY 05/16/19 [History Confirmed 06/21/19] Ibuprofen TAB* [Motrin TAB* 800 MG] 800 mg PO TID PRN 05/16/19 [History Confirmed 06/21/19] Insulin NPH Human Isophane [Humulin N Kwikpen 100 units/ml 3 ml x 5 Pens] 20 units SUBCUT .BEFORE DINNER 05/16/19 [History Confirmed 06/21/19] Magnesium Oxide TAB* [MagOx 400 TAB*] 400 mg PO DAILY 05/16/19 [History Confirmed 06/21/19] Miconazole Nitrate [Miconazole-7] 1 applic VAGINAL BID 05/16/19 [History Confirmed 06/21/19] QUEtiapine XR TAB* [Seroquel Xr 50 MG TAB*] 50 mg PO BID 05/16/19 [History Confirmed 06/21/19] Saliva Substitute (NF) [Biotene Moisturizing Mouth (NF)] 1 spray MT BID [History Confirmed 06/21/19] Abacavir/Dolutegravir/Lamivudi [Triumeq 600-50-300 mg Tablet] 1 tab PO DAILY 11/19 [History Confirmed 06/21/19] Bismuth Subsalicylate [Pepto-Bismol] 525 mg PO Q6HR #1 oral.susp 06/09/19 [Rx Confirmed 06/21/19] Crofelemer [Mytesi] 125 mg PO BID 06/09/19 [History Confirmed 06/21/19] Estradiol VAG CM (NF) [Estrace VAG CM (NF)] 1 applic VAGINAL WEEKLY 06/09/19 [ History Confirmed 06/21/19] Loperamide CAP* [Imodium CAP*] 2 mg PO BID 06/09/19 [History Confirmed 06/21/19] Mupirocin 2% OINT* [Bactroban 2 % Oint*] 1 applic TOPICAL BID 06/09/19 [History Confirmed 06/21/19] Potassium Chlor TAB* [Klor Con ER TAB 10 MEQ*] 20 meq PO DAILY 06/09/19 [ History Confirmed 06/21/19] Pregabalin [Lyrica] 75 mg PO BID 06/09/19 [History Confirmed 06/21/19] glipiZIDE TAB.XL* [Glucotrol XL*] 10 mg PO DAILY 06/09/19 [History Confirmed ] PMH/Surg Hx/FS Hx/Imm Hx Endocrine/Hematology History: Reports: Hx Diabetes - insulin dependent diabetic , Other Endocrine/Hematological Disorders - HIV POSITIVE Denies: Hx Thyroid Disease Cardiovascular History: Reports: Hx Hypercholesterolemia, Hx Hypertension, Other Cardiovascular Problems/Disorders - hyperlipidemia Denies: Hx Pacemaker/ICD Respiratory History: Reports: Hx Chronic Bronchitis, Hx Chronic Obstructive Pulmonary Disease (COPD) Denies: Hx Asthma GI History: Reports: Hx Gastroesophageal Reflux Disease Denies: Hx Ulcer History: Reports: Hx Kidney Infection, Other Problems/Disorders - hemorrhoids, herpes simplex Denies: Hx Kidney Stones, Hx Renal Disease Musculoskeletal History: Reports: Hx Arthritis Sensory History: Reports: Hx Cataracts - left eye, Hx Contacts or Glasses - readers, Hx Eye Prosthesis - Rt, Hx Vision Problem - RIGHT EYE PROSTHETIC, Other Sensory Impairments - no contacts - wears eyeglasses Denies: Hx Glaucoma, Hx Hearing Aid Opthamlomology History: Reports: Hx Cataracts - left eye, Hx Contacts or Glasses - readers, Hx Eye Prosthesis - Rt, Hx Vision Problem - RIGHT EYE PROSTHETIC, Other Sensory Impairments - no contacts - wears eyeglasses Denies: Hx Glaucoma Neurological History: Reports: Hx Nerve Disease - neuropathy, Other Neuro Impairments/Disorders - schizophrenia Psychiatric History: Reports: Hx Depression, Hx Schizophrenia, Hx Substance Abuse Denies: Hx Eating Disorder, Hx Panic Disorder, Hx Post Traumatic Stress Disorder, Hx Bipolar Disorder, Hx Suicide Attempt - Cancer History Hx Chemotherapy: No Hx Radiation Therapy: No - Surgical History Surgery Procedure, Year, and Place: right eye prosthetic - d/t trauma. right lower abdomen cyst removal Hx Anesthesia Reactions: No - Immunization History Date of Tetanus Vaccine: utd Date of Influenza Vaccine: 03/2017 Infectious Disease History: No Infectious Disease History: Reports: Hx Hepatitis - chronic HEP C, Hx Human Immunodeficiency Virus (HIV), Hx of Known/Suspected MRSA Denies: Traveled Outside the [place] in Last 30 Days - Family History Known Family History: Positive: Cardiac Disease, Hypertension - Social History Alcohol Use: None Alcohol Amount: pt refuses to answer questions Hx Substance Use: No Substance Use Type: Reports: None Substance Use Comment - Amount & Last Used: pt refuses to answer questions Hx Tobacco Use: Yes Smoking Status (MU): Never Smoked Tobacco Type: Cigarettes Amount Used/How Often: 2 ppd for 20 yrs Have You Smoked in the Last Year: No Review of Systems - ROS Summary Review of Systems Summary: Home Medications Medication Instructions Recorded Confirmed Type Chlorthalidone TAB* [Hygroton TAB*] 50 mg PO DAILY 02/07/13 06/20/19 History Simvastatin TAB(NF) [Zocor 20 MG 20 mg PO DAILY 02/07/13 06/20/19 History (NF)] ValACYclovir (*) [Valtrex 1 GM(*)] 1 gm PO DAILY 06/18/15 06/20/19 History Insulin GLARGINE(*) [Lantus 100 60 units SUBCUT BID 11/14/16 06/20/19 History units/ml 10 ml VIAL (*)] Insulin NPH Human Isophane 15 units IM BID AC 04/27/17 06/20/19 History [Humulin N Kwikpen 100 units/ml 3 ml x 5 Pens] QUEtiapine TAB* [Seroquel 25 MG 25 mg PO DAILY 04/27/17 06/20/19 History TAB*] Cholecalciferol CAP/TAB(NF) 2,000 unit PO DAILY 05/16/19 06/20/19 History [Vitamin D3 CAP/TAB (NF)] Clotrimazole 1% CREAM* 1 applic TOPICAL BID 05/16/19 06/20/19 History [Clotrimazole 1%*] Cyclosporine 0.05% OPHTH (NF) 1 drop BOTH EYES DAILY 05/16/19 06/20/19 History [Restasis 0.05% OPHTH] Dulaglutide (NF) [Trulicity (NF)] 0.5 ml SUBCUT WEEKLY 05/16/19 06/20/19 History Ibuprofen TAB* [Motrin TAB* 800 MG] 800 mg PO TID PRN 05/16/19 06/20/19 History Insulin NPH Human Isophane 20 units SUBCUT .BEFORE DINNER 05/16/19 06/20/19 History [Humulin N Kwikpen 100 units/ml 3 ml x 5 Pens] Magnesium Oxide TAB* [MagOx 400 400 mg PO DAILY 05/16/19 06/20/19 History TAB*] Miconazole Nitrate [Miconazole-7] 1 applic VAGINAL BID 05/16/19 06/20/19 History QUEtiapine XR TAB* [Seroquel Xr 50 50 mg PO BID 05/16/19 06/20/19 History MG TAB*] Saliva Substitute (NF) [Biotene 1 spray MT BID 05/16/19 06/20/19 History Moisturizing Mouth (NF)] Abacavir/Dolutegravir/Lamivudi 1 tab PO DAILY 06/09/19 06/20/19 History [Triumeq 600-50-300 mg Tablet] Bismuth Subsalicylate 525 mg PO Q6HR #1 oral.susp 06/09/19 06/20/19 Rx [Pepto-Bismol] Crofelemer [Mytesi] 125 mg PO BID 06/09/19 06/20/19 History Estradiol VAG CM (NF) [Estrace VAG 1 applic VAGINAL WEEKLY 06/09/19 06/20/19 History CM (NF)] Loperamide CAP* [Imodium CAP*] 2 mg PO BID 06/09/19 06/20/19 History Mupirocin 2% OINT* [Bactroban 2 % 1 applic TOPICAL BID 06/09/19 06/20/19 History Oint*] Potassium Chlor TAB* [Klor Con ER 20 meq PO DAILY 06/09/19 06/20/19 History TAB 10 MEQ*] Pregabalin [Lyrica] 75 mg PO BID 06/09/19 06/20/19 History glipiZIDE TAB.XL* [Glucotrol XL*] 10 mg PO DAILY 06/09/19 06/20/19 History Negative: Fever - On vitals, temp is 96.1 F, no fever. Positive: Diarrhea, Nausea All Other Systems Reviewed And Are Negative: Yes Physical Exam - Summary Physical Exam Summary: General: Well-developed, Obese Female. No acute distress. HEENT: Normocephalic, Superficial abrasion and ecchymosis of the forehead that appears subacute. Eyes: Conjuctiva normal, PERRL. Oropharynx: Clear, mucous membranes moist, (-) exudates. Neck: Soft, FROM, (-) lymphadenopathy, (-) thyromegaly, (-) JVD. Cardiovascular: Normal sinus rhythm, (-) murmur. Lungs: Clear to auscultation bilaterally (-) wheezes, (-) rales, (-) rhonchi. Abdomen: Soft, mild diffuse tenderness, non-distended, (-) organomegaly, normal bowel sounds. Back: (-) CVA tenderness Extremities: No edema. Skin: Warm, dry, (-) rash. Neuro: Alert and oriented x3, moves all extremities equally. No ataxia. No gait disturbance. No sensory deficit. Normal strength, normal sensation. Psychiatric: Odd affect Triage Information Reviewed: Yes Vital Signs On Initial Exam: Initial Vitals Temp Pulse Resp BP Pulse Ox 96.1 F 91 20 143/85 99 06/21/19 04:39 06/21/19 04:39 06/21/19 04:39 06/21/19 04:39 06/21/19 04:39 Vital Signs Reviewed: Yes Procedures - Sedation Patient Received Moderate/Deep Sedation with Procedure: No Diagnostics - Vital Signs Vital Signs Temp Pulse Resp BP Pulse Ox 06/21/19 04:39 96.1 F 91 20 143/85 99 - Laboratory Lab Results: Lab Results 06/21/19 Range/Units 05:41 WBC 8.7 (3.5-10.8) 10^3/uL RBC 4.77 (3.70-4.87) 10^6 /uL Hgb 10.9 L (12.0-16.0) g/dL Hct 34 L (35-47) % MCV 72 L (80-97) fL MCH 23 L (27-31) pg MCHC 32 (31-36) g/dL RDW 18 H (10-15) % Plt Count 245 (150-450) 10^3/uL MPV 7.3 L (7.4-10.4) fL Neut % (Auto) 78.5 % Lymph % (Auto) 12.8 % Gibson % (Auto) 7.7 % Eos % (Auto) 0.6 % Baso % (Auto) 0.4 % Absolute Neuts (auto) 6.8 (1.5-7.7) 10^3/ul Absolute Lymphs (auto) 1.1 (1.0-4.8) 10^3/ul Absolute Monos (auto) 0.7 (0-0.8) 10^3/ul Absolute Eos (auto) 0.1 (0-0.6) 10^3/ul Absolute Basos (auto) 0.0 (0-0.2) 10^3/ul Absolute Nucleated RBC 0.0 10^3/ul Nucleated RBC % 0.0 Result Diagrams: 06/21/19 05:41 06/21/19 05:41 Lab Statement: Any lab studies that have been ordered have been reviewed, and results considered in the medical decision making process. Re-Evaluation - Re-Evaluation First Eval Re-Evaluation Time: 06:18 Change: Improved Comment: Glucose of 30 noted. Patient has been tolerating PO intake, more food to be given. Second Eval Re-Evaluation Time: 07:40 Comment: Nurse Evans reports that Misa, who was previously the [facility] Care coordinating nurse, has called to explain that she does not believe the patient is taking care of herself at home anymore and likely needs detention admission. We will plan for social work consultation. Third Eval Re-Evaluation Time: 10:45 Comment: Patient is ambulating well and is safe for discharge GIGU Course/Dx - Course Course Of Treatment: 73-year-old female presents from home by ambulance with abdominal pain, vomiting, diarrhea. Patient has known schizophrenia. A very poor historian. States she's been having diarrhea and vomiting all day. No fevers. Patient given Pepcid, Maalox, Imodium. She is a very difficult IV stick and is well known here for multiple visits of abdominal pain. IV is declined at this time as patient is taking by mouth. Patient has mild diffuse abdominal pain on exam. Multiple episodes of diarrhea requiring patient to be cleaned while here. Laboratories demonstrated a blood sugar of 30. The patient is taking by mouth. Is also given oral dextrose. Sign changes shift awaiting reevaluation and disposition. During ED course, patient received Pepcid 20 mg PO, Maalox 30 mL PO and Imodium 4 mg PO. - Diagnoses Provider Diagnoses: Diarrhea - Critical Care Time Critical Care Statement: Critical care time is provided exclusive of any time spent performing procedures. Discharge ED - Sign-Out/Discharge Documenting (check all that apply): Sign-Out Patient Signing out patient TO: Derek Thomason - Discharge Plan Condition: Stable Disposition: HOME Patient Education Materials: Acute Diarrhea (ED) Referrals: Care [facility] [Outside] - 3 Days Fan Parsons MD [Primary Care Provider] - 3 Days Additional Instructions: Follow up with your primary care provider in 2-3 days. Return to the emergency department for any new or worsening symptoms. - Billing Disposition and Condition Condition: STABLE Disposition: Home - Attestation Statements Document Initiated by Gaston: Yes Documenting Scribe: JEM ELDRIDGE Provider For Whom Gaston is Documenting (Include Credential): LOU ALFORD MD Scribe Attestation: JEM Hastings, scribed for LOU ALFORD MD on 06/21/19 at 2252. Scribe Documentation Reviewed: Yes Provider Attestation: The documentation as recorded by the JEM quinonez accurately reflects the service I personally performed and the decisions made by me, LOU ALFORD MD Status of Scribe Document: Viewed
[2019-06-21 06:17] LABS: Glucose 30 mg/dL (70-100)
[2019-06-21] MEDS ORDERED: Loperamide CAP* 2 MG PO ONE (06:22)
[2019-06-21] MEDS ORDERED: Glucose ORAL* 15 GM TUBE PO ONE (06:45)
--- NOTE | 2019-06-21 07:15 | ED ---
Progress - Progress Note Progress Note: The patient is a sign-out from Dr. Edie Cuenca MD, to Derek Thomason MD, at change of shift at 0700 on 06/21/19, pending improved blood glucose, control of diarrhea, urinalysis, labs, and disposition. [0728] POC Glucose has improved to 138. Stool sample collected, but it was too formed for C. diff results. [0740] Patient's previous [facility] coordinating nurse does not believe the patient is taking care of herself at home anymore and likely requires intermediate admission at this time. Plan for social work consultation. Vy Regalado from social work states that the patient can be admitted for intermediate admission, or a rehab/nursing facility can admit her. She recommends a physical therapy evaluation. Patient is ambulating to the bathroom without aid and does not require a physical therapy consultation at this time. She is safe for discharge at this time. Re-Evaluation - Re-Evaluation First Eval Re-Evaluation Time: 07:28 Change: Improved Comment: POC Glucose 138 Second Eval Re-Evaluation Time: 07:40 Comment: Nurse Nathan reports that Misa, who was previously the patients [facility] coordinating nurse, has called to explain that she does not believe the patient is taking care of herself at home anymore and likely needs intermediate admission. We will plan for social work consultation. Third Eval Re-Evaluation Time: 10:45 Comment: Patient is ambulating well and is safe for discharge Course/Dx - Course Course Of Treatment: Patient is signed out from Dr. Cuenca at change of shift pending improvement of symptoms and labs. Glucose improved to 138. Stool sample collected, but it was too formed for C. diff results. Patient previous [facility] nurse reports she is concerned that the patient is not caring for herself at home and states she should be considered for a intermediate admission. Vy Regalado from [employer] work has spoken with the patient and requests a physical therapy evaluation. Patient is ambulating without any aid; therefore, she does not need a physical therapy evaluation. Patient is alert & oriented x3 and appears to be safe for discharge with PCP follow up in 2-3 days. - Diagnoses Provider Diagnoses: Diarrhea - Provider Notifications Discussed Care Of Patient With: Vy Regalado - social work Time Discussed With Above Provider: 09:00 Instructed by Provider To: Other - Vy Regalado from social work states that the patient can be admitted for intermediate admission, or a rehab/nursing facility can admit her. She recommends a physical therapy evaluation. - Critical Care Time Critical Care Statement: Critical care time is provided exclusive of any time spent performing procedures. Discharge ED - Sign-Out/Discharge Documenting (check all that apply): Patient Departure - Patient will be discharged home., Receiving Sign-Out Receiving patient FROM: Edie Cuenca - Patient is a sign-out from Dr. Edie Cuenca MD, at change of shift at 0700 on 06/21/19, pending improvement of symptoms, UA, labs, and disposition. - Discharge Plan Condition: Stable Disposition: HOME Patient Education Materials: Acute Diarrhea (ED) Referrals: Fan Parsons MD [Primary Care Provider] - 3 Days Care [facility] [Outside] - 3 Days Additional Instructions: Follow up with your primary care provider in 2-3 days. Return to the emergency department for any new or worsening symptoms. - Billing Disposition and Condition Condition: STABLE Disposition: Home - Attestation Statements Document Initiated by Scribe: Yes Documenting Scribe: Pamela Christiansen Provider For Whom Fabiolaibe is Documenting (Include Credential): Derek Thomason MD Scribe Attestation: Pamela Hastings scribed for Derek Thomason MD on 06/22/19 at 0748. Scribe Documentation Reviewed: Yes Provider Attestation: The documentation as recorded by the Pamela quinonez accurately reflects the service I personally performed and the decisions made by me, Derek Thomason MD Status of Scribe Document: Viewed
[2019-06-21 08:23] LABS: Magnesium 2.9 mg/dL (1.9-2.7)
[2019-06-21 11:16] VITALS: BP 0/0
== END 2019-06-21 11:15 | disposition home or self-care (01) ==
LOC: ED 04:34
DX: R19.7 Diarrhea, unspecified (principal); E11.9 Type 2 diabetes mellitus without complications; E78.00 Pure hypercholesterolemia, unspecified; I10 Essential (primary) hypertension; K21.9 Gastro-esophageal reflux disease without esophagitis; Z79.4 Long term (current) use of insulin; Z21 Asymptomatic human immunodeficiency virus [HIV] infection status; Z86.79 Personal history of other diseases of the circulatory system; Z79.899 Other long term (current) drug therapy
CPT/HCPCS: 36415; 80053; 83605; 83630; 83690; 83735; 85025; 86140; 87045; 87046; 87077; 87899; 99283; A9270-GY

== ENCOUNTER 2019-06-23 16:32 | Inpatient (IN) | payer MEDICARE, MEDICAID, OTHER ==
[2019-06-23] MEDS ORDERED: NS 0.9% 1000 ml BAG 1,000 ML IV ONE (17:05)
[2019-06-23] MEDS: Ondansetron 4 mg VIAL 2 MG/ML 2 ml VIAL IV ONE ×2 (17:24→20:42)
[2019-06-23 19:56] LABS: ABS Basophils 0.1 10^3/ul (0-0.2); ABS Eosinophils 0.1 10^3/ul (0-0.6); ABS Lymphocytes 2.7 10^3/ul (1.0-4.8); ABS Monocytes 0.8 10^3/ul (0-0.8); Eosinophil % 1.1 %; Hematocrit 28 % (35-47); Hemoglobin 8.9 g/dL (12.0-16.0); Mean Corpuscular HGB Conc 32 g/dL (31-36); Mean Corpuscular Hemoglobin 23 pg (27-31); Mean Corpuscular Volume 72 fL (80-97); Mean Platelet Volume 7.7 fL (7.4-10.4); Platelet Count 217 10^3/uL (150-450); Red Blood Count 3.89 10^6 /uL (3.70-4.87); Red Cell Distribution Width 18 % (10-15); White Blood Count 9.3 10^3/uL (3.5-10.8)
[2019-06-23 20:10] LABS: ALT 14 U/L (7-52); AST 14 U/L (13-39); Albumin 3.4 g/dL (3.2-5.2); Albumin/Globulin Ratio 1.2 (1-3); Alkaline Phosphatase 78 U/L (34-104); Anion Gap 6 mmol/L (2-11); Blood Urea Nitrogen 26 mg/dL (6-24); CO2 Carbon Dioxide 30 mmol/L (22-32); Calcium 8.7 mg/dL (8.6-10.3); Chloride 96 mmol/L (101-111); EGFR African American 45.9 (>60); EGFR Non-African American 37.9 (>60); Globulin 2.8 g/dL (2-4); Glucose 189 mg/dL (70-100); Potassium 3.5 mmol/L (3.5-5.0); Sodium 132 mmol/L (135-145); Total Protein 6.2 g/dL (6.4-8.9)
[2019-06-23 20:15] LABS: Troponin I 0.03 ng/mL (<0.03)
[2019-06-23] MEDS ORDERED: Ondansetron 4 mg VIAL 2 MG/ML 2 ml VIAL ONE (20:38)
[2019-06-23] MEDS ORDERED: LORazepam 2 mg VIAL 1 ml IV PUSH ONE (20:56)
[2019-06-23] MEDS ORDERED: Haloperidol 5 mg/ml SDV IV/IM 5 MG/ML AMP IV SLOW PU ONE (20:56)
[2019-06-23] MEDS ORDERED: Lorazepam PYXIS KEY PRN (20:56)
[2019-06-23] MEDS ORDERED: Dextrose 50% Syringe 50 ml 25 GM/50 ML SYRINGE IV PUSH PRN (21:47)
[2019-06-23] MEDS ORDERED: NS 0.9% 1000 ml BAG 1,000 ML IV SCH (22:00)
[2019-06-23] MEDS ORDERED: Iodixanol (CONTRAST) 320 MG/ML 100 ML SDV IV ONE (22:01)
[2019-06-23 22:14] LABS: Corrected Retic Count 0.8 % (0.5-1.5); Hematocrit for Retic CNT 27 % (35-47); Immature Retic Fraction 0.34; RBC Retic Count 3.79 10^6/uL (3.70-4.87)
[2019-06-23] MEDS ORDERED: Albuterol HFA INHALER 8 gm MDI INH PRN (22:15)
[2019-06-23 22:36] LABS: % Iron Saturation 6 % (15-55); Iron 27 ug/dL (50-212); LDH 135 U/L (140-271); Total Iron Binding Capacity 426 mcg/dL (250-450); Transferrin 304 mg/dL (203-362)
[2019-06-23 22:58] LABS: Ferritin 14.3 ng/mL (11-307)
[2019-06-23 23:01] LABS: Folate 9.81 ng/mL (>3.99)
[2019-06-24] MEDS: Pantoprazole VIAL 40 MG VIAL IV SCH ×2 (00:10→09:31)
[2019-06-24] MEDS: Prochlorperazine 5 mg/ml 2 ml VIAL (10 mg) IV PRN ×3 (00:40→20:26)
[2019-06-24] MEDS: Ondansetron 4 mg VIAL 2 MG/ML 2 ml VIAL IV PRN ×2 (04:33→18:35)
[2019-06-24] MEDS: LAMIVUDI PO SCH (09:26)
[2019-06-24] MEDS: ABACAVIR PO SCH (09:26)
[2019-06-24] MEDS: DOLUTEGRAVIR PO SCH (09:26)
[2019-06-24] MEDS: CROFELEMER 125 MG PO SCH ×2 (09:26→20:36)
[2019-06-24] MEDS: VALACYCLOVIR 1 GM PO SCH (09:31)
[2019-06-24] MEDS: Pregabalin 25 mg CAP (*) PO SCH ×2 (09:31→20:29)
[2019-06-24] MEDS: Insulin GLARGINE 100 un/ml (*) 10 ml VIAL SUBCUT SCH ×2 (09:32→20:36)
[2019-06-24] MEDS: Insulin LISPRO 100 units/ml(*) SUBCUT SCH ×3 (09:32→17:29)
[2019-06-24 11:14] LABS: Urine Appearance Cloudy; Urine Bilirubin Negative (Negative); Urine Blood Negative (Negative); Urine Color Yellow; Urine Glucose Negative (Negative); Urine Ketones Negative (Negative); Urine Nitrite Negative (Negative); Urine Protein Negative (Negative); Urine Specific Gravity 1.015 (1.010-1.030); Urine Urobilinogen Negative (Negative)
[2019-06-24 11:19] LABS: Urine Bacteria Absent (Absent); Urine Red Blood Cell 1+(3-5/hpf) (Absent); Urine Squamous Epithelial Cell Present (Absent); Urine White Blood Cell Trace(0-5/hpf) (Absent)
[2019-06-24 12:50] LABS: ABS Basophils 0.1 10^3/ul (0-0.2); ABS Eosinophils 0.1 10^3/ul (0-0.6); ABS Lymphocytes 2.2 10^3/ul (1.0-4.8); ABS Monocytes 0.6 10^3/ul (0-0.8); Eosinophil % 1.6 %; Hematocrit 29 % (35-47); Hemoglobin 9.2 g/dL (12.0-16.0); Lymphocyte % 32.2 %; Mean Corpuscular HGB Conc 32 g/dL (31-36); Mean Corpuscular Hemoglobin 23 pg (27-31); Mean Corpuscular Volume 72 fL (80-97); Platelet Count 216 10^3/uL (150-450); Red Blood Count 4.04 10^6 /uL (3.70-4.87); Red Cell Distribution Width 18 % (10-15); White Blood Count 6.9 10^3/uL (3.5-10.8)
[2019-06-24 12:58] LABS: Activated Partial Thrombo Time 31.8 seconds (26.0-38.0); INR 1.17 (0.82-1.09)
[2019-06-24 13:06] LABS: BUN/Creatinine Ratio 14.7 (8-20); EGFR African American 49.2 (>60); EGFR Non-African American 40.6 (>60); Potassium 3.4 mmol/L (3.5-5.0)
[2019-06-24 13:08] LABS: Troponin I 0.01 ng/mL (<0.03)
[2019-06-24] MEDS ORDERED: Potassium Chloride LIQUID 20 MEQ/15 ML LIQUID PO ONE (15:36)
[2019-06-25] MEDS: Ondansetron 4 mg VIAL 2 MG/ML 2 ml VIAL IV PRN ×4 (01:15→21:18)
[2019-06-25] MEDS: Insulin LISPRO 100 units/ml(*) SUBCUT SCH ×3 (08:49→17:30)
[2019-06-25] MEDS: Pantoprazole VIAL 40 MG VIAL IV SCH (08:50)
[2019-06-25] MEDS: Insulin GLARGINE 100 un/ml (*) 10 ml VIAL SUBCUT SCH ×2 (08:50→21:18)
[2019-06-25] MEDS: VALACYCLOVIR 1 GM PO SCH (08:56)
[2019-06-25] MEDS: DOLUTEGRAVIR PO SCH (08:56)
[2019-06-25] MEDS: LAMIVUDI PO SCH (08:56)
[2019-06-25] MEDS: Pregabalin 25 mg CAP (*) PO SCH ×2 (08:56→21:17)
[2019-06-25] MEDS: ABACAVIR PO SCH (08:56)
[2019-06-25] MEDS: CROFELEMER 125 MG PO SCH ×2 (08:57→21:18)
[2019-06-25] MEDS: Prochlorperazine 5 mg/ml 2 ml VIAL (10 mg) IV PRN ×2 (10:30→23:09)
[2019-06-26 06:16] LABS: ABS Eosinophils 0.1 10^3/ul (0-0.6); ABS Lymphocytes 1.8 10^3/ul (1.0-4.8); ABS Monocytes 0.5 10^3/ul (0-0.8); Eosinophil % 1.6 %; Hematocrit 25 % (35-47); Lymphocyte % 40.2 %; Mean Corpuscular HGB Conc 32 g/dL (31-36); Mean Corpuscular Hemoglobin 23 pg (27-31); Mean Corpuscular Volume 72 fL (80-97); Mean Platelet Volume 7.6 fL (7.4-10.4); Platelet Count 162 10^3/uL (150-450); Red Blood Count 3.45 10^6 /uL (3.70-4.87); Red Cell Distribution Width 18 % (10-15); White Blood Count 4.4 10^3/uL (3.5-10.8)
[2019-06-26 06:29] LABS: BUN/Creatinine Ratio 19.1 (8-20); Calcium 8.4 mg/dL (8.6-10.3); EGFR African American 46.2 (>60); EGFR Non-African American 38.2 (>60); Magnesium 1.8 mg/dL (1.9-2.7); Potassium 4.2 mmol/L (3.5-5.0)
[2019-06-26] MEDS: VALACYCLOVIR 1 GM PO SCH (08:30)
[2019-06-26] MEDS: Pregabalin 25 mg CAP (*) PO SCH ×2 (08:30→22:59)
[2019-06-26] MEDS: Ondansetron 4 mg VIAL 2 MG/ML 2 ml VIAL IV PRN ×2 (08:30→17:00)
[2019-06-26] MEDS: Insulin GLARGINE 100 un/ml (*) 10 ml VIAL SUBCUT SCH ×2 (08:32→23:00)
[2019-06-26] MEDS: Insulin LISPRO 100 units/ml(*) SUBCUT SCH ×3 (08:32→18:57)
[2019-06-26] MEDS: DOLUTEGRAVIR PO SCH (08:32)
[2019-06-26] MEDS: CROFELEMER 125 MG PO SCH ×2 (08:32→23:03)
[2019-06-26] MEDS: ABACAVIR PO SCH (08:32)
[2019-06-26] MEDS: LAMIVUDI PO SCH (08:32)
[2019-06-26] MEDS: Prochlorperazine 5 mg/ml 2 ml VIAL (10 mg) IV PRN (11:18)
[2019-06-26] MEDS: guaiFENesin 100 mg/5 ml LIQ unit dose cup PO PRN (15:51)
[2019-06-26] MEDS: ABACAVIR 300 MG PO SCH ×2 (19:01→23:01)
[2019-06-26] MEDS: Heparin 5000 UNITS/ML VIAL(*) 1 ml vial SUBCUT SCH (23:00)
[2019-06-27] MEDS: Prochlorperazine 5 mg/ml 2 ml VIAL (10 mg) IV PRN ×3 (03:46→21:14)
[2019-06-27] MEDS: Heparin 5000 UNITS/ML VIAL(*) 1 ml vial SUBCUT SCH ×3 (05:27→21:14)
[2019-06-27 08:37] LABS: ABS Basophils 0.1 10^3/ul (0-0.2); ABS Eosinophils 0.1 10^3/ul (0-0.6); ABS Lymphocytes 1.7 10^3/ul (1.0-4.8); ABS Monocytes 0.6 10^3/ul (0-0.8); Eosinophil % 1.5 %; Hematocrit 25 % (35-47); Hemoglobin 8.2 g/dL (12.0-16.0); Lymphocyte % 24.3 %; Mean Corpuscular HGB Conc 33 g/dL (31-36); Mean Corpuscular Hemoglobin 24 pg (27-31); Mean Corpuscular Volume 72 fL (80-97); Mean Platelet Volume 8.3 fL (7.4-10.4); Platelet Count 178 10^3/uL (150-450); Red Blood Count 3.49 10^6 /uL (3.70-4.87); Red Cell Distribution Width 18 % (10-15); White Blood Count 6.9 10^3/uL (3.5-10.8)
[2019-06-27 08:47] LABS: BUN/Creatinine Ratio 18.1 (8-20); Calcium 8.6 mg/dL (8.6-10.3); EGFR Non-African American 41.4 (>60); Magnesium 1.7 mg/dL (1.9-2.7); Potassium 4.1 mmol/L (3.5-5.0)
[2019-06-27] MEDS ORDERED: Magnesium Hydroxide LIQ 30 ML UDC PO SCH (09:00)
[2019-06-27] MEDS: Pregabalin 25 mg CAP (*) PO SCH ×2 (09:09→21:11)
[2019-06-27] MEDS: Ondansetron 4 mg VIAL 2 MG/ML 2 ml VIAL IV PRN ×2 (09:11→15:01)
[2019-06-27] MEDS: Magnesium Hydroxide LIQ 30 ML UDC PO PRN ×2 (09:11→21:17)
[2019-06-27] MEDS: Insulin GLARGINE 100 un/ml (*) 10 ml VIAL SUBCUT SCH ×2 (09:12→21:16)
[2019-06-27] MEDS: Insulin LISPRO 100 units/ml(*) SUBCUT SCH ×3 (09:12→17:26)
[2019-06-27] MEDS: CROFELEMER 125 MG PO SCH ×2 (11:25→21:16)
[2019-06-27] MEDS: VALACYCLOVIR 1 GM PO SCH (12:47)
[2019-06-27] MEDS: ABACAVIR 300 MG PO SCH (21:10)
[2019-06-27] MEDS ORDERED: diPHENhydraMINE 25 mg TAB PO ONE (22:18)
[2019-06-28] MEDS: Heparin 5000 UNITS/ML VIAL(*) 1 ml vial SUBCUT SCH ×3 (05:03→20:40)
[2019-06-28 07:32] LABS: ABS Basophils 0.1 10^3/ul (0-0.2); ABS Eosinophils 0.1 10^3/ul (0-0.6); ABS Monocytes 0.7 10^3/ul (0-0.8); Eosinophil % 1.7 %; Hematocrit 28 % (35-47); Hemoglobin 8.6 g/dL (12.0-16.0); Lymphocyte % 29.7 %; Mean Corpuscular HGB Conc 31 g/dL (31-36); Mean Corpuscular Hemoglobin 23 pg (27-31); Mean Corpuscular Volume 74 fL (80-97); Mean Platelet Volume 8.3 fL (7.4-10.4); Nucleated Red Blood Cells % 0.2; Platelet Count 171 10^3/uL (150-450); Red Blood Count 3.75 10^6 /uL (3.70-4.87); Red Cell Distribution Width 18 % (10-15); White Blood Count 6.8 10^3/uL (3.5-10.8)
[2019-06-28] MEDS: Insulin LISPRO 100 units/ml(*) SUBCUT SCH ×3 (08:28→17:38)
[2019-06-28] MEDS: CROFELEMER 125 MG PO SCH ×2 (08:28→20:43)
[2019-06-28] MEDS: Ondansetron ODT 4 mg TAB 4 MG TAB SL PRN ×2 (10:17)
[2019-06-28] MEDS: Insulin GLARGINE 100 un/ml (*) 10 ml VIAL SUBCUT SCH ×2 (10:17→20:43)
[2019-06-28] MEDS: Magnesium Hydroxide LIQ 30 ML UDC PO PRN ×2 (10:17→20:39)
[2019-06-28] MEDS: VALACYCLOVIR 1 GM PO SCH (10:25)
[2019-06-28] MEDS: Pregabalin 25 mg CAP (*) PO SCH ×2 (10:25→20:40)
[2019-06-28 17:02] LABS: Methylmalonic Acid 0.41 nmol/mL (<=0.40)
[2019-06-28] MEDS: ABACAVIR 300 MG PO SCH (20:41)
[2019-06-29] MEDS: Dextran 70/Hypromellose Tears Eye Drops 15 ml BTL (for Artificials Tears) LEFT EYE PRN ×4 (03:28→20:05)
[2019-06-29] MEDS: Heparin 5000 UNITS/ML VIAL(*) 1 ml vial SUBCUT SCH ×3 (05:11→20:04)
[2019-06-29 07:02] LABS: BUN/Creatinine Ratio 21.9 (8-20); Calcium 8.3 mg/dL (8.6-10.3); EGFR African American 42.6 (>60); EGFR Non-African American 35.2 (>60); Magnesium 2.1 mg/dL (1.9-2.7); Potassium 3.9 mmol/L (3.5-5.0)
[2019-06-29] MEDS: Insulin LISPRO 100 units/ml(*) SUBCUT SCH ×3 (08:10→16:41)
[2019-06-29] MEDS: Pregabalin 25 mg CAP (*) PO SCH ×2 (08:11→20:02)
[2019-06-29] MEDS: VALACYCLOVIR 1 GM PO SCH (08:12)
[2019-06-29] MEDS: Insulin GLARGINE 100 un/ml (*) 10 ml VIAL SUBCUT SCH ×2 (08:12→20:03)
[2019-06-29] MEDS: CROFELEMER 125 MG PO SCH ×2 (08:18→19:34)
[2019-06-29] MEDS ORDERED: Potassium Chlor 20 meq TAB.ER PO ONE (08:23)
[2019-06-29] MEDS: Magnesium Hydroxide LIQ 30 ML UDC PO PRN ×2 (09:17→20:04)
[2019-06-29] MEDS: ABACAVIR 300 MG PO SCH (20:02)
[2019-06-29] MEDS: Ondansetron ODT 4 mg TAB 4 MG TAB SL PRN (23:12)
[2019-06-30] MEDS: Heparin 5000 UNITS/ML VIAL(*) 1 ml vial SUBCUT SCH ×3 (04:48→20:00)
[2019-06-30] MEDS: guaiFENesin 100 mg/5 ml LIQ unit dose cup PO PRN (04:48)
[2019-06-30 08:41] LABS: ABS Eosinophils 0.1 10^3/ul (0-0.6); ABS Lymphocytes 1.9 10^3/ul (1.0-4.8); ABS Monocytes 0.7 10^3/ul (0-0.8); Eosinophil % 1.8 %; Hematocrit 25 % (35-47); Lymphocyte % 31.1 %; Mean Corpuscular HGB Conc 32 g/dL (31-36); Mean Corpuscular Hemoglobin 23 pg (27-31); Mean Corpuscular Volume 72 fL (80-97); Mean Platelet Volume 8.8 fL (7.4-10.4); Nucleated Red Blood Cells % 0.1; Platelet Count 184 10^3/uL (150-450); Red Blood Count 3.45 10^6 /uL (3.70-4.87); Red Cell Distribution Width 18 % (10-15)
[2019-06-30] MEDS: Pregabalin 25 mg CAP (*) PO SCH ×2 (08:42→20:01)
[2019-06-30] MEDS: VALACYCLOVIR 1 GM PO SCH (08:42)
[2019-06-30] MEDS: Ondansetron ODT 4 mg TAB 4 MG TAB SL PRN (08:43)
[2019-06-30] MEDS: Dextran 70/Hypromellose Tears Eye Drops 15 ml BTL (for Artificials Tears) LEFT EYE PRN (08:44)
[2019-06-30] MEDS: Magnesium Hydroxide LIQ 30 ML UDC PO PRN (08:45)
[2019-06-30] MEDS: Insulin LISPRO 100 units/ml(*) SUBCUT SCH ×3 (08:45→16:54)
[2019-06-30] MEDS: Insulin GLARGINE 100 un/ml (*) 10 ml VIAL SUBCUT SCH ×2 (08:46→20:00)
[2019-06-30] MEDS: CROFELEMER 125 MG PO SCH ×2 (08:46→19:42)
[2019-06-30] MEDS: Ondansetron 4 mg VIAL 2 MG/ML 2 ml VIAL IV PRN (12:18)
[2019-06-30] MEDS: ABACAVIR 300 MG PO SCH (20:00)
[2019-07-01] MEDS: Heparin 5000 UNITS/ML VIAL(*) 1 ml vial SUBCUT SCH ×3 (04:45→21:26)
[2019-07-01] MEDS: Insulin LISPRO 100 units/ml(*) SUBCUT SCH ×3 (08:45→19:34)
[2019-07-01] MEDS: Pregabalin 25 mg CAP (*) PO SCH ×2 (08:45→21:28)
[2019-07-01] MEDS: VALACYCLOVIR 1 GM PO SCH (08:45)
[2019-07-01] MEDS: Insulin GLARGINE 100 un/ml (*) 10 ml VIAL SUBCUT SCH ×2 (08:45→21:23)
[2019-07-01] MEDS: Magnesium Hydroxide LIQ 30 ML UDC PO PRN ×2 (11:15→21:32)
[2019-07-01] MEDS: CROFELEMER 125 MG PO SCH ×2 (20:26→20:56)
[2019-07-01] MEDS: ABACAVIR 300 MG PO SCH (21:29)
[2019-07-02 01:16] LABS: Hematocrit 27 % (35-47); Hemoglobin 8.9 g/dL (12.0-16.0); Mean Corpuscular HGB Conc 33 g/dL (31-36); Mean Corpuscular Hemoglobin 24 pg (27-31); Mean Corpuscular Volume 73 fL (80-97); Mean Platelet Volume 8.7 fL (7.4-10.4); Platelet Count 195 10^3/uL (150-450); Red Blood Count 3.74 10^6 /uL (3.70-4.87); Red Cell Distribution Width 19 % (10-15); White Blood Count 5.4 10^3/uL (3.5-10.8)
[2019-07-02 01:17] LABS: ABS Eosinophils 0.1 10^3/ul (0-0.6); ABS Lymphocytes 1.8 10^3/ul (1.0-4.8); ABS Monocytes 0.6 10^3/ul (0-0.8); Eosinophil % 1.5 %; Lymphocyte % 32.9 %; Potassium 3.7 mmol/L (3.5-5.0)
[2019-07-02 01:18] LABS: BUN/Creatinine Ratio 18.7 (8-20); Calcium 9.5 mg/dL (8.6-10.3); EGFR African American 39.8 (>60); EGFR Non-African American 32.9 (>60)
[2019-07-02 02:58] LABS: Hematocrit 24 % (35-47); Hemoglobin 7.7 g/dL (12.0-16.0)
[2019-07-02] MEDS: Heparin 5000 UNITS/ML VIAL(*) 1 ml vial SUBCUT SCH ×2 (05:30→15:15)
[2019-07-02 05:47] LABS: ABS Lymphocytes 1.4 10^3/ul (1.0-4.8); ABS Monocytes 0.4 10^3/ul (0-0.8); Hematocrit 24 % (35-47); Hemoglobin 7.4 g/dL (12.0-16.0); Lymphocyte % 39.7 %; Mean Corpuscular HGB Conc 31 g/dL (31-36); Mean Corpuscular Hemoglobin 24 pg (27-31); Mean Corpuscular Volume 76 fL (80-97); Mean Platelet Volume 8.8 fL (7.4-10.4); Nucleated Red Blood Cells % 0.2; Platelet Count 125 10^3/uL (150-450); Red Blood Count 3.12 10^6 /uL (3.70-4.87); Red Cell Distribution Width 19 % (10-15); White Blood Count 3.4 10^3/uL (3.5-10.8)
[2019-07-02] MEDS: Insulin GLARGINE 100 un/ml (*) 10 ml VIAL SUBCUT SCH ×2 (08:15→22:00)
[2019-07-02] MEDS: Insulin LISPRO 100 units/ml(*) SUBCUT SCH ×3 (08:15→17:30)
[2019-07-02] MEDS: VALACYCLOVIR 1 GM PO SCH (08:16)
[2019-07-02] MEDS: Pregabalin 25 mg CAP (*) PO SCH ×2 (08:17→21:59)
[2019-07-02] MEDS: CROFELEMER 125 MG PO SCH ×2 (08:25→22:01)
[2019-07-02 15:57] LABS: % Iron Saturation 5 % (15-55); Iron 25 ug/dL (50-212); LDH 169 U/L (140-271); Total Iron Binding Capacity 461 mcg/dL (250-450); Transferrin 329 mg/dL (203-362)
[2019-07-02 16:42] LABS: Corrected Retic Count 1.6 % (0.5-1.5); Hematocrit for Retic CNT 25 % (35-47); RBC Retic Count 3.39 10^6/uL (3.70-4.87)
[2019-07-02 16:58] LABS: Indirect Bilirubin 0.1 mg/dL (0.3-1.0); Total Bilirubin 0.2 mg/dL (0.2-1.0)
[2019-07-02 17:44] LABS: Folate 8.46 ng/mL (>3.99)
[2019-07-02] MEDS: ABACAVIR 300 MG PO SCH (21:59)
[2019-07-02] MEDS: Magnesium Hydroxide LIQ 30 ML UDC PO PRN (22:05)
[2019-07-03 06:08] LABS: ABS Basophils 0.1 10^3/ul (0-0.2); ABS Eosinophils 0.1 10^3/ul (0-0.6); ABS Monocytes 0.8 10^3/ul (0-0.8); Eosinophil % 1.3 %; Hematocrit 25 % (35-47); Hemoglobin 7.8 g/dL (12.0-16.0); Mean Corpuscular HGB Conc 31 g/dL (31-36); Mean Corpuscular Hemoglobin 24 pg (27-31); Mean Corpuscular Volume 76 fL (80-97); Mean Platelet Volume 8.6 fL (7.4-10.4); Nucleated Red Blood Cells % 0.1; Platelet Count 118 10^3/uL (150-450); Red Blood Count 3.31 10^6 /uL (3.70-4.87); Red Cell Distribution Width 19 % (10-15); White Blood Count 6.1 10^3/uL (3.5-10.8)
[2019-07-03 06:43] LABS: Calcium 8.9 mg/dL (8.6-10.3); Potassium 3.9 mmol/L (3.5-5.0)
[2019-07-03 06:49] LABS: BUN/Creatinine Ratio 26.4 (8-20); EGFR African American 52.9 (>60); EGFR Non-African American 43.7 (>60)
[2019-07-03] MEDS: Insulin LISPRO 100 units/ml(*) SUBCUT SCH ×3 (08:35→17:23)
[2019-07-03] MEDS: Insulin GLARGINE 100 un/ml (*) 10 ml VIAL SUBCUT SCH ×2 (08:36→20:56)
[2019-07-03] MEDS: Pregabalin 25 mg CAP (*) PO SCH ×2 (08:37→20:55)
[2019-07-03] MEDS: VALACYCLOVIR 1 GM PO SCH (08:43)
[2019-07-03] MEDS: CROFELEMER 125 MG PO SCH ×2 (08:50→20:57)
[2019-07-03] MEDS: ABACAVIR 300 MG PO SCH (20:56)
[2019-07-03] MEDS: Magnesium Hydroxide LIQ 30 ML UDC PO PRN (21:03)
[2019-07-04] MEDS: Pregabalin 25 mg CAP (*) PO SCH (08:16)
[2019-07-04] MEDS: Insulin LISPRO 100 units/ml(*) SUBCUT SCH ×3 (08:18→16:28)
[2019-07-04] MEDS: Insulin GLARGINE 100 un/ml (*) 10 ml VIAL SUBCUT SCH (08:19)
[2019-07-04] MEDS: VALACYCLOVIR 1 GM PO SCH (08:19)
[2019-07-04] MEDS: CROFELEMER 125 MG PO SCH (09:07)
[2019-07-04 11:42] VITALS: BP 134/69
[2019-07-08 08:22] LABS: Methylmalonic Acid 0.86 nmol/mL (<=0.40)
== END 2019-07-04 16:45 | DRG 977 ==
LOC: ED 16:32 → MED 21:41 → MEDTELE 06-26 12:46
PROVIDERS: ADMIT Hospitalist; ATTEND Internal Medicine